=== PATIENT | male | born 1980 | race Caucasian/White ===

== ENCOUNTER 2021-03-27 11:42 | Outpatient (REF) | payer OTHER, SELFPAY ==
[2021-03-27 14:03] LABS: Appearance Urine CLOUDY; Color Urine ORANGE; Glucose Urine UA NEG (NEG); Leukocyte Esterase Urine NEG (NEG); Nitrite Urine NEG (NEG); PH 5.5 (5.0-8.0); Specific Gravity - Urine >= 1.030 (1.005-1.025); UACC Culture Trigger NO; Urine Blood 1+ (NEG); Urine Ketones NEG (NEG); Urine Protein NEG (NEG-TRACE)
[2021-03-27 14:32] LABS: Alanine Aminotransferase 17 U/L (0-40); Albumin Level 4.3 g/dL (3.5-5.0); Alkaline Phosphatase 95 U/L (39-117); Anion Gap 13 (12-20); Aspartate Amino Transferase 16 U/L (5-37); Blood Urea Nitrogen 17 mg/dL (9-16); Calcium 9.1 mg/dL (8.4-10.2); Carbon Dioxide 26 mmol/L (22-29); Chloride 104 mmol/L (96-108); Cholesterol 229 mg/dL; Estimated Glomerular Filt Rate > 60; Glucose Fasting 85 mg/dL (60-99); HDL Cholesterol 45 mg/dL; LDL Cholesterol Calculated 153 mg/dl; Potassium 4.2 mmol/L (3.3-5.1); Sodium 139 mmol/L (135-145); Total Protein 6.9 g/dL (6.5-8.0); Triglycerides 158 mg/dL
[2021-03-27 14:47] LABS: Amorphous Sediment Urine 4+ /LPF; RBC Urine 0 /HPF (0); WBC Urine 0 /HPF (0-4)
[2021-03-27 14:53] LABS: TSH reflex Free T4 1.08 uIU/mL (0.32-4.0)
== END 2021-03-27 11:43 | disposition home or self-care (01) ==
LOC: HO.HMGCLDS 11:42
PROVIDERS: PCP Nurse Practitioner Family; Visit Provider Nurse Practitioner Family
DX: Z00.00 Encounter for general adult medical examination without abnormal findings (principal)
CPT/HCPCS: 36415; 80053; 80061; 81001; 81003; 84443

== ENCOUNTER → 2022-04-06 13:27 | Outpatient (BNVA) | payer OTHER, SELFPAY | PROVIDERS: PCP Nurse Practitioner Family; Visit Provider Surgery | DX: K64.5 Perianal venous thrombosis (principal) | CPT/HCPCS: 99202 ==

== ENCOUNTER 2022-07-22 12:31 | Outpatient (REF) | payer OTHER, SELFPAY ==
[2022-07-22 13:53] LABS: Urine Cytology See Pathology rpt
[2022-07-22 13:59] LABS: MANUAL DIFF FLAG NO
[2022-07-22 14:01] LABS: Appearance Urine Clear; Color Urine Yellow; Glucose Urine UA Negative (Negative); Leukocyte Esterase Urine Negative (Negative); Nitrite Urine Negative (Negative); PH 5.5 (5.0-9.0); Urine Blood Negative (Negative); Urine Ketones Negative (Negative); Urine Protein Negative (Neg-Trace)
[2022-07-22 14:07] LABS: Basophils Absolute Auto 0.1 X10*3/uL (0.0-0.2); Basophils Percent Auto 0.8 % (0-2); Eosinophils Absolute Auto 0.3 X10*3/uL (0.0-0.4); Eosinophils Percent Auto 3.4 % (0-4); Hematocrit 46.6 % (42.0-52.0); Hemoglobin 15.9 g/dl (14.0-18.0); Imm Gran Abs Auto 0.04 X10*3/uL (0.00-0.03); Imm Gran Pct Auto 0.5 % (0.0-0.4); Lymphocytes Absolute Auto 2.5 X10*3/uL (1.2-4.9); Mean Corpuscular HGB Conc 34.1 g/dl (31.0-36.0); Mean Corpuscular Hemoglobin 30.1 pg (27.0-33.0); Mean Corpuscular Volume 88.3 fL (80.0-98.0); Mean Platelet Volume 8.8 fL (9.4-12.4); Monocytes Absolute Auto 0.7 X10*3/uL (0.1-1.2); Monocytes Percent Auto 8.9 % (2-11); Neutrophils Absolute Auto 3.8 x10*3/uL (2.0-8.3); Neutrophils Percent Auto 52.4 % (45-73); Platelet Count 303 X10*3/uL (160-400); Red Blood Count 5.28 X10*6/uL (4.60-5.80); Red Cell Distribution Width 12.2 % (11.0-16.0); White Blood Count 7.3 X10*3/uL (4.8-10.8)
[2022-07-22 14:35] LABS: Alanine Aminotransferase 20 U/L (0-40); Albumin Level 4.2 g/dL (3.5-5.0); Alkaline Phosphatase 96 U/L (39-117); Anion Gap 10 (12-20); Aspartate Amino Transferase 16 U/L (5-37); Bilirubin Total 1.3 mg/dL (0.0-1.0); Blood Urea Nitrogen 16 mg/dL (9-16); Calcium 9.1 mg/dL (8.4-10.2); Carbon Dioxide 25 mmol/L (22-29); Chloride 108 mmol/L (96-108); Cholesterol 241 mg/dL; Estimated Glomerular Filt Rate > 60; Glucose Fasting 88 mg/dL (60-99); HDL Cholesterol 40 mg/dL; LDL Cholesterol Calculated 166 mg/dl; Potassium 4.2 mmol/L (3.3-5.1); Sodium 139 mmol/L (135-145); Total Protein 6.7 g/dL (6.5-8.0); Triglycerides 179 mg/dL
[2022-07-22 14:41] LABS: TSH reflex Free T4 1.23 uIU/mL (0.32-4.0)
== END 2022-07-22 12:32 | disposition home or self-care (01) ==
LOC: HO.HMGCLDS 12:31
PROVIDERS: PCP Nurse Practitioner Family; Visit Provider Nurse Practitioner Family
DX: E78.5 Hyperlipidemia, unspecified (principal); R31.29 Other microscopic hematuria
CPT/HCPCS: 36415; 80053; 80061; 81003; 84443; 85025; 87086; 88112

== ENCOUNTER 2022-10-12 14:06 | Outpatient (REF) | payer OTHER, SELFPAY ==
[2022-10-12 17:02] LABS: Alanine Aminotransferase 42 U/L (0-40); Albumin Level 4.4 g/dL (3.5-5.0); Alkaline Phosphatase 102 U/L (39-117); Anion Gap 12 (12-20); Aspartate Amino Transferase 24 U/L (5-37); Bilirubin Total 1.2 mg/dL (0.0-1.0); Blood Urea Nitrogen 16 mg/dL (9-16); Calcium 9.2 mg/dL (8.4-10.2); Carbon Dioxide 27 mmol/L (22-29); Chloride 106 mmol/L (96-108); Cholesterol 218 mg/dL; Estimated Glomerular Filt Rate > 60; Glucose Fasting 82 mg/dL (60-99); HDL Cholesterol 40 mg/dL; LDL Cholesterol Calculated 135 mg/dl; Potassium 4.3 mmol/L (3.3-5.1); Sodium 141 mmol/L (135-145); Total Protein 6.9 g/dL (6.5-8.0); Triglycerides 216 mg/dL
== END 2022-10-12 14:07 | disposition home or self-care (01) ==
LOC: HO.HMGCLDS 14:06
PROVIDERS: PCP Nurse Practitioner Family; Visit Provider Nurse Practitioner Family
DX: E78.5 Hyperlipidemia, unspecified (principal)
CPT/HCPCS: 36415; 80053; 80061

== ENCOUNTER 2022-11-11 09:59 | Outpatient (REF) | payer OTHER, SELFPAY ==
--- NOTE | ~2022-11-11 | US_ITS ---
EXAMINATION: US ABDOMEN COMPLETE CLINICAL INFORMATION: Abnormal LFTs. COMPARISON: None available. TECHNIQUE: Real-time imaging of the abdominal viscera. FINDINGS: PANCREAS: Visualized body and the head of the pancreas is homogeneous in echotexture without enlargement or focal lesion. The tail is obscured by overlying gas. ABDOMINAL AORTA: The proximal, mid, and distal segments are normal in caliber. INFERIOR VENA CAVA: Visualized portions are normal. LIVER: The liver is normal in size. The liver contour is normal. There is increased liver echogenicity. No focal hepatic lesion. There is no intrahepatic biliary duct dilatation seen. GALLBLADDER: Normal. The gallbladder is physiologically distended without evidence of stones, sludge, polyps, wall thickening or pericholecystic fluid. COMMON BILE DUCT: Normal in caliber measuring 0.3 cm in diameter. RIGHT KIDNEY: Normal. No hydronephrosis. No renal calculi or focal parenchymal lesions. The kidney measures 11.4 cm in maximum dimension. LEFT KIDNEY: Normal. No hydronephrosis. No renal calculi or focal parenchymal lesions. The kidney measures 12.1 cm in maximum dimension. SPLEEN: Normal. The spleen measures 11.7 cm in maximum dimension. FREE FLUID: None. US/US abdomen complete IMPRESSION: 1. Mild hepatic steatosis without focal lesion. 2. The rest of the abdominal ultrasound is unremarkable.
== END 2022-11-11 10:00 | disposition home or self-care (01) ==
LOC: HO.US 09:59
PROVIDERS: PCP Nurse Practitioner Family; Visit Provider Nurse Practitioner Family
DX: R74.8 Abnormal levels of other serum enzymes (principal)
CPT/HCPCS: 76700

== ENCOUNTER 2023-07-28 10:02 | Outpatient (REF) | payer OTHER, SELFPAY ==
[2023-07-29 08:13] LABS: HBS Num1 0.63 mIU/mL (0-7.99); HBc Num1 0.11 S/CO (0.00-0.79); HBsAGNum1 0.33 S/CO (0.00-0.99); Hepatitis A Antibody IgM 0.27 Index (0-0.79); Hepatitis B Core Antibody Nonreactive (Nonreactive); Hepatitis B Surface Antigen Negative (Negative); ~HepC Num1 0.05 S/CO (0.00-0.79); ~Hepatitis A Antibody IgM Nonreactive (Nonreactive); ~Hepatitis B Surface Antibody NONREACTIVE (Nonreactive); ~Hepatitis C Antibody Nonreactive (Nonreactive)
== END 2023-07-28 10:03 | disposition home or self-care (01) ==
LOC: HO.HMGCLDS 10:02
PROVIDERS: PCP Nurse Practitioner Family; Visit Provider Nurse Practitioner Family
DX: R74.8 Abnormal levels of other serum enzymes (principal)
CPT/HCPCS: 36415; 86704; 86706; 86709; 86803; 87340

== ENCOUNTER 2023-09-30 13:42 | Outpatient (AMB) | payer OTHER, SELFPAY ==
[2023-09-30 13:51] VITALS: BP 110/72; PULSE 82; O2SAT 98; BMI 28.7
--- NOTE | 2023-09-30 13:51 | A.OFFPC_ITS ---
Vital Signs 09/30/23 13:51 Height 5 ft 8 in Weight 189 lb BMI 28.7 BP 110/72 Blood Pressure Location Lt brachial Position Sitting Pulse 82 Pulse Source Pulse Oximeter Pulse Oximetry (%) 98 Intake Visit Reasons: Annual PE Intake Note: pt is here for annual exam Director Medical Affairs Required: No Accompanied by: Self / Same As Patient Allergies aspirin Allergy (Unknown, Verified 09/30/23 14:35) Unknown Medication List - Last Reconciled 09/30/23 by CLEO Farias buspirone 5 mg PO BID cyclobenzaprine 10 mg PO BEDTIME PRN 30 days nabumetone 500 mg PO BID 30 days rosuvastatin (Crestor) 10 mg PO DAILY sertraline 50 mg PO DAILY Tobacco use date assessed: 09/30/23 Dental Screening Dental Screen Date: 09/30/23 Did you have a dental visit in the last 12 months?: No Did you have a dental problem in the last 6 months where you did not have access to dental care?: No Was dental information given to patient?: Patient declined HPI Annual PE HPI Details Pt is here for a PE. Will order labs. Due for colon screen, will refer to GI. Pt reports discomfort to his mid posterior back with inhalation. He does have a significant smoking hx (up to 2 packs per day). Will order chest CT and d-dimer. [facility] Medical History Chronic left ear pain Thrombosed external hemorrhoid Depression Surgical History History of back surgery Social History Housing: House Patient Tobacco Use Status: Current everyday Tobacco user Cigarettes Per Day: 15 e-Cigarette/Vaping Use: Never Used Second Hand Smoke Exposure: Yes service: No Current occupational status: employed Current occupation: [employer] Current occupational exposures/hazards: No Cognitive needs: No Hearing needs: No Vision needs: No Questionnaire PHQ-9 Over the last 2 weeks, how often have you been bothered by any of the following problems? 1. Little interest or pleasure in doing things: nearly every day 2. Feeling down, depressed, or hopeless: not at all 3. Trouble falling or staying asleep, or sleeping too much: nearly every day 4. Feeling tired or having little energy: nearly every day 5. Poor appetite or overeating: more than half the days 6. Feeling bad about yourself - or that you are a failure or have let yourself or your family down: more than half the days 7. Trouble concentrating on things, such as reading the newspaper or watching television: more than half the days 8. Moving or speaking so slowly that other people could have noticed. Or the opposite - being so fidgety or restless that you have been moving around a lot more than usual: several days 9. Thoughts that you would be better off or of hurting yourself in some way: several days Total score: 17 Depression Screening Interpretation: Positive (will have reyes contact the pt) Depression Screening Follow-up: Existing condition and Declines treatment Depression Screening Done: Yes 73785 - PHQ-9 Billing: Yes Source: Developed by Drs. Boaz Barker, Kristal Yap, Noe Rosales and colleagues, with an educational giovani from [employer]. Thrive Questionnaire Date Thrive assessed: 07/16/22 AUDIT C Alcohol Use Questionnaire (AUDIT-C) 1. How often do you have a drink containing alcohol?: Monthly or less 2. How many drinks containing alcohol do you have on a typical day when you are drinking?: 3 or 4 3. How often do you have six or more drinks on one occasion?: Never Total Score: 2 Score Reviewed/Action Taken: Yes JOSELYN-7 AMB Questionnaire JOSELYN-7 Date JOSELYN - 7 assessed: 09/30/23 Feeling nervous, anxious, or on edge: 3 = Nearly every day Not being able to stop or control worryin = More than half the days Worrying too much about different things: 2 = More than half the days Trouble relaxin = More than half the days Being so restless that it is hard to sit still: 2 = More than half the days Becoming easily annoyed or irritable: 2 = More than half the days Feeling afraid as if something awful might happen: 2 = More than half the days Total JOSELYN-7 score (0-4 normal; 5-9 mild; 10-14 moderate; 15-21 severe): 15 Source: Developed by Drs. Boaz Barker, Kristal Yap, Noe Rosales and colleagues, with an educational giovani from [employer]. JOSELYN-7 Assessment Billing JOSELYN-7 Assessment Tool: JOSELYN-7 Assessment 41990 (denies any si or hi, declines treatment (therapist)/ consult) Review of Systems Const Denies chills and Denies fever(s) Eyes Denies blurry vision ENT Denies vertigo, Denies dizziness and Denies sore throat Card Denies chest pain at rest, Denies chest pain with activity, Denies diaphoresis, Denies dyspnea and Denies dyspnea on exertion Resp Denies cough, Denies dyspnea, Denies dyspnea on exertion and Denies wheezing GI Denies abdominal pain, Denies melena, Denies hematochezia, Denies constipation, Denies diarrhea and Denies loose stools Denies hematuria Musc Denies numbness and Denies tingling Skin/Breast Denies lesions Neuro Denies vertigo, Denies dizziness, Denies numbness and Denies tingling Psych Denies anxiety, Denies depression, Denies homicidal ideation, Denies suicidal ideation and Denies other (substance abuse) Aller/Immun Denies wheezing Physical exam (Primary Care) Vital Signs: Last Vital Signs Pulse 82 09/30/23 13:51 BP 110/72 09/30/23 13:51 Pulse Ox 98 09/30/23 13:51 BMI result Body Mass Index 28.7 Tobacco/Smoking Status: Tobacco use Status Tobacco use date assessed 09/30/23 09/30/23 13:59 Patient Tobacco Use Status Current everyday Tobacco 09/30/23 13:59 e-Cigarette/Vaping Use Never Used 09/30/23 13:59 Depression Screening Interpretation: Positive (will have reyes contact the pt) Depression Screening Follow-up: Existing condition and Declines treatment Thrive Assessment: Date of Thrive Assessment Date Thrive assessed 07/16/22 09/30/23 13:59 Const General: cooperative Nutritional Appearance: well nourished Orientation/consciousness: patient oriented x3 HENMT Head: Yes normal to inspection, Yes normocephalic and Yes atraumatic Ears: TM's normal bilaterally Eyes General: appearance normal, both eyes and all related structures Alignment and Position: alignment normal and position normal Neck Neck: Yes normal visual inspection and Yes no lymphadenopathy Thyroid: Thyroid normal Resp Effort & Inspection: normal respiratory effort Auscultation: clear to auscultation bilaterally Cardio Rate: regular rate Rhythm: regular rhythm Heart sounds: S1 normal heart sound present, S2 normal heart sound present and no murmurs GI Palpation (GI): Soft to palpation and nontender Auscultation: normal bowel sounds Male General Exam: Yes normal external exam Penis: normal penis Scrotum: scrotum normal, testes descended bilaterally and no inguinal hernias Testes: no testicular mass Skin Rashes: no rashes Neuro General: patient oriented x3, moves all extremities, no focal motor deficits and deep tendon reflexes 2+ bilaterally Romberg Test: Negative Psych Appearance: grossly normal Mental Status: mental status grossly normal Speech and movement: Normal speech and movement present Affect: normal affect Attitude: cooperative Thought process: Normal thought process present Thought content: Normal thought content present Insight: Good insight present (Psych) Judgement: Good judgement present (Psych) Assessment and Plan Assessment & Plan (1) Physical exam: Code(s): Z00.00 - Encounter for general adult medical examination without abnormal findings Plan: Labs ordered (2) Smoker: Code(s): F17.200 - Nicotine dependence, unspecified, uncomplicated Plan: Chest CT and d-dimer ordered (3) Inflammatory pain: Code(s): R52 - Pain, unspecified Plan: Chest CT and d-dimer ordered (4) Screening for colon cancer: Code(s): Z12.11 - Encounter for screening for malignant neoplasm of colon Plan: Referred to GI Plan The patient agreed to the use of a clinical medical transcriptionist for this encounter. Scribed for CLEO Rojas by Ely Patterson clinical medical transcriptionist, on 09/30/2023 at 14:10 EST. Orders: Orders Complete Blood Count Auto Diff Today Z00.00 - Encounter for general adult medical examination without abnormal findings TSH reflex Free T4 Today Z00.00 - Encounter for general adult medical examination without abnormal findings CT chest wo IV con Today F17.200 - Nicotine dependence, unspecified, uncomplicated, R52 - Pain, unspecified Comprehensive [place]. Panel Fast Today Z00.00 - Encounter for general adult medical examination without abnormal findings UA CC w/rflx Micro + Cult Today Z00.00 - Encounter for general adult medical examination without abnormal findings Lipid Panel Today Z00.00 - Encounter for general adult medical examination without abnormal findings D Dimer High Sensitivity Today F17.200 - Nicotine dependence, unspecified, uncomplicated, R52 - Pain, unspecified Referrals Gastroenterology Referral Z12.11 - Encounter for screening for malignant neoplasm of colon Medications: Refilled nabumetone 500 mg PO BID 60 tabs 0RF 30 days nabumetone 500 mg PO BID 60 tabs 2RF 30 days Coding Level of Care Code Est Pt Prev Care 40-64y(35328) Diagnoses Physical exam Z00.00 Smoker F17.200 Inflammatory pain R52 Screening for colon cancer Z12.11 Additional Codes JOSELYN-7 Assessment Billing - JOSELYN-7 Assessment Tool: JOSELYN-7 Assessment [id number] ([id number])
== END 2023-09-30 14:24 | disposition home or self-care (01) ==
PROVIDERS: PCP Nurse Practitioner Family; Visit Provider Nurse Practitioner Family
DX: Z00.00 Encounter for general adult medical examination without abnormal findings (principal); F17.210 Nicotine dependence, cigarettes, uncomplicated; R52 Pain, unspecified; Z12.11 Encounter for screening for malignant neoplasm of colon
CPT/HCPCS: 99396

== ENCOUNTER 2023-10-04 12:55 | Outpatient (REF) | payer OTHER, SELFPAY ==
[2023-10-04 16:14] LABS: MANUAL DIFF FLAG NO
[2023-10-04 16:22] LABS: Basophils Absolute Auto 0.1 X10*3/uL (0.0-0.2); Basophils Percent Auto 0.6 % (0-2); Eosinophils Absolute Auto 0.2 X10*3/uL (0.0-0.4); Eosinophils Percent Auto 2.6 % (0-4); Hematocrit 47.4 % (42.0-52.0); Hemoglobin 16.1 g/dl (14.0-18.0); Imm Gran Abs Auto 0.03 X10*3/uL (0.00-0.03); Imm Gran Pct Auto 0.4 % (0.0-0.4); Lymphocytes Absolute Auto 2.7 X10*3/uL (1.2-4.9); Lymphocytes Percent Auto 31.9 % (20-40); Mean Corpuscular Hemoglobin 30.2 pg (27.0-33.0); Mean Corpuscular Volume 88.9 fL (80.0-98.0); Mean Platelet Volume 8.8 fL (9.4-12.4); Monocytes Absolute Auto 0.7 X10*3/uL (0.1-1.2); Monocytes Percent Auto 8.3 % (2-11); Neutrophils Absolute Auto 4.7 x10*3/uL (2.0-8.3); Neutrophils Percent Auto 56.2 % (45-73); Platelet Count 334 X10*3/uL (160-400); Red Blood Count 5.33 X10*6/uL (4.60-5.80); Red Cell Distribution Width 11.9 % (11.0-16.0); White Blood Count 8.4 X10*3/uL (4.8-10.8)
[2023-10-04 16:45] LABS: Alanine Aminotransferase 20 U/L (0-40); Albumin Level 4.3 g/dL (3.5-5.0); Alkaline Phosphatase 103 U/L (39-117); Anion Gap 11 (12-20); Aspartate Amino Transferase 17 U/L (5-37); Bilirubin Total 1.1 mg/dL (0.0-1.0); Blood Urea Nitrogen 15 mg/dL (9-16); Calcium 9.5 mg/dL (8.4-10.2); Carbon Dioxide 26 mmol/L (22-29); Chloride 106 mmol/L (96-108); Cholesterol 229 mg/dL (<200); Estimated Glomerular Filt Rate > 60; Glucose Fasting 84 mg/dL (60-99); HDL Cholesterol 40 mg/dL (>40); LDL Cholesterol Calculated 152 mg/dL (<100); Potassium 4.1 mmol/L (3.3-5.1); Sodium 139 mmol/L (135-145); Total Protein 7.5 g/dL (6.5-8.0); Triglycerides 189 mg/dL (<150)
[2023-10-04 16:57] LABS: D Dimer High Sensitivity < 150 NG/ML
[2023-10-04 16:59] LABS: Appearance Urine Clear; Glucose Urine UA Negative (Negative); Leukocyte Esterase Urine Negative (Negative); Nitrite Urine Negative (Negative); PH 5.5 (5.0-9.0); Specific Gravity - Urine 1.025 (1.005-1.025); Urine Blood Negative (Negative); Urine Ketones Negative (Negative); Urine Protein Negative (Neg-Trace)
[2023-10-04 17:00] LABS: TSH reflex Free T4 1.38 uIU/mL (0.32-4.0)
[2023-10-04 17:02] LABS: Color Urine Yellow
== END 2023-10-04 12:56 | disposition home or self-care (01) ==
LOC: HO.HMGCLDS 12:55
PROVIDERS: PCP Nurse Practitioner Family; Visit Provider Nurse Practitioner Family
DX: Z00.00 Encounter for general adult medical examination without abnormal findings (principal); F17.200 Nicotine dependence, unspecified, uncomplicated; R52 Pain, unspecified
CPT/HCPCS: 36415; 80053; 80061; 81003; 84443; 85025; 85379

== ENCOUNTER 2023-11-15 15:07 | Outpatient (REF) | payer OTHER, SELFPAY ==
--- NOTE | ~2023-11-15 | CT_ITS ---
EXAMINATION: CT CHEST WITHOUT CONTRAST CLINICAL INFORMATION: Chest pain. Nicotine dependence. COMPARISON: None available. TECHNIQUE: Multidetector volumetric CT imaging of the chest was done. Axial MIP volume rendering provided. Sagittal and coronal reformatted images were obtained. This CT examination was performed using dose optimization techniques as appropriate, variously including the following: *Automated exposure control *Adjustment of mA and/or kV according to patient size (this includes techniques or standardized protocols for targeted exams where dose is matched to indication/reason for exam; i.e. extremities or head) *Use of iterative reconstruction technique DLP: 138 mGy-cm FINDINGS: ART COORDINATOR: Unremarkable. LUNGS: A potential 10 mm subsolid right lower lobe pulmonary nodule (series 5 image [id number]) with a 3 mm solid component. I suspect this is in fact a 3 mm juxtapleural nodule with adjacent dependent atelectasis. Recommend CT in 3-6 months to confirm persistence. If unchanged and solid component below 6 mm, recommend CT annually for 5 years. There are multiple small (less than 6 mm), solid, and multiple juxtapleural nodules bilaterally. Attention on 12 month follow-up. No endobronchial lesion. MEDIASTINUM: No mass or adenopathy. CORONARY ARTERY CALCIFICATION: Minimal coronary artery calcification in the left main (series 5 image 298). PLEURA: Trace anteriorly loculated pericardial effusion. No pleural effusion. AXILLA: No lymphadenopathy. UPPER ABDOMEN: Incomplete visualization of a punctate pancreatic calcification (series 3 image 61/61). OSSEOUS STRUCTURES: Minor degenerative spine disease. CT/CT chest wo IV con IMPRESSION: 1. A potential 10 mm subsolid right lower lobe pulmonary nodule with 3 mm solid component. Follow in 3-6 months to confirm persistence. 2. Multiple small solid and juxtapleural pulmonary nodules. Follow in 12 months. Fleischner guidelines were followed.
== END 2023-11-15 15:08 | disposition home or self-care (01) ==
LOC: HO.CT 15:07
PROVIDERS: PCP Nurse Practitioner Family; Visit Provider Nurse Practitioner Family
DX: R52 Pain, unspecified (principal); F17.200 Nicotine dependence, unspecified, uncomplicated
CPT/HCPCS: 71250

== ENCOUNTER 2023-12-27 07:53 | Outpatient (AMB) | payer OTHER, SELFPAY ==
[2023-12-27 07:55] VITALS: BP 101/69; PULSE 59; BMI 28.1
--- NOTE | 2023-12-27 07:55 | MHC.OFFVIS ---
Vital Signs 12/27/23 07:55 Height 5 ft 8 in Weight 185 lb BMI 28.1 BP 101/69 Blood Pressure Location Rt brachial Position Sitting Pulse 59 Intake Visit Reasons: Pumonary Nodule Intake Note: Patient referred by pcp Rony GUTIERREZ for Rt lower lobe pulmonary nodule. Patient c/o: fatigue, SOB when going upstairs. Has cut down in smoking from 2 packs a day to 5 cigarettes per day. Reports no personal or family hx of lung CA. Chest CT: 11-15-23. Instructional Support Specialist Required: No Accompanied by: Spouse Allergies aspirin Allergy (Unknown, Verified 12/27/23 08:00) Unknown HPI Comments Details: Patient presents with his and daughter. He had incidental finding of bilateral small lung lesions. This was picked up incidentally on a CT scan for unrelated back issues. Patient has a very significant smoking history for almost 1-1/2-2 packs per day for approximately 29 years. He is attempting to cut down. Patient has no other respiratory symptoms. He denies any cough, chest pain, wheeze, or shortness of breath. Patien's energy, appetite, and appetite are all good. Chart was reviewed and patient evaluated [facility] Medical History Chronic left ear pain Thrombosed external hemorrhoid Depression Surgical History History of back surgery Social History Housing: House Patient Tobacco Use Status: Current everyday Tobacco user Cigarettes Per Day: 15 e-Cigarette/Vaping Use: Never Used Second Hand Smoke Exposure: Yes service: No Current occupational status: employed Current occupation: [employer] Current occupational exposures/hazards: No Cognitive needs: No Hearing needs: No Vision needs: No Physical Exam Vital Signs: Last Vital Signs Pulse 59 12/27/23 07:55 BP 101/69 12/27/23 07:55 BMI result Body Mass Index 28.1 Chest Other: Chest breath sounds bilaterally. No evidence of any cervical periclavicular axillary groin adenopathy. GI Other: Abdomen is soft, benign Extrem Other: Extremities all 4 grossly intact Assessment & Plan Assessment & Plan (1) Incidental lung nodule, greater than or equal to 8mm: Code(s): R91.1 - Solitary pulmonary nodule Category: Surgical Plan: Current radiologic recommendation is for follow-up CT scan in the few months time. I discussed with the patient and I concur with this. Arrangements were made for this and the patient will see me after the CT scan. The meantime, patient has been strongly encouraged to discontinue smoking completely. All questions answered. Patient will see me as noted above after the follow-up CT scan or p.r.n. (2) Multiple lung nodules on CT: Code(s): R91.8 - Other nonspecific abnormal finding of lung field Category: Surgical Plan: See above Orders: Orders CT chest wo/w IV con 6 Months R91.1 - Solitary pulmonary nodule, R91.8 - Other nonspecific abnormal finding of lung field Coding Level of Care Code New Pt Level 4 (89425) Diagnoses Incidental lung nodule, greater than or equal to 8mm R91.[address] Multiple lung nodules on CT R91.8
== END 2023-12-27 08:16 | disposition home or self-care (01) ==
PROVIDERS: PCP Nurse Practitioner Family; Visit Provider Surgery
DX: R91.1 Solitary pulmonary nodule (principal); R91.8 Other nonspecific abnormal finding of lung field
CPT/HCPCS: 99203

== ENCOUNTER → 2023-12-27 07:53 | Outpatient (BNVA) | payer OTHER, SELFPAY | PROVIDERS: PCP Nurse Practitioner Family; Visit Provider Surgery | DX: R91.1 Solitary pulmonary nodule (principal); R91.8 Other nonspecific abnormal finding of lung field | CPT/HCPCS: 99202 ==

== ENCOUNTER 2024-01-03 11:42 | Outpatient (REF) | payer OTHER, SELFPAY ==
[2024-01-03 14:22] LABS: Alanine Aminotransferase 34 U/L (0-40); Albumin Level 4.2 g/dL (3.5-5.0); Alkaline Phosphatase 113 U/L (39-117); Anion Gap 11 (12-20); Aspartate Amino Transferase 23 U/L (5-37); Bilirubin Total 0.7 mg/dL (0.0-1.0); Blood Urea Nitrogen 14 mg/dL (9-16); Calcium 9.4 mg/dL (8.4-10.2); Carbon Dioxide 26 mmol/L (22-29); Chloride 107 mmol/L (96-108); Cholesterol 161 mg/dL (<200); Estimated Glomerular Filt Rate > 60; Glucose Fasting 88 mg/dL (60-99); HDL Cholesterol 40 mg/dL (>40); LDL Cholesterol Calculated 96 mg/dL (<100); Potassium 4.3 mmol/L (3.3-5.1); Sodium 140 mmol/L (135-145); Total Protein 7.1 g/dL (6.5-8.0); Triglycerides 125 mg/dL (<150)
== END 2024-01-03 11:43 | disposition home or self-care (01) ==
LOC: HO.HMGCLDS 11:42
PROVIDERS: PCP Nurse Practitioner Family; Visit Provider Nurse Practitioner Family
DX: E78.5 Hyperlipidemia, unspecified (principal)
CPT/HCPCS: 36415; 80053; 80061

== ENCOUNTER 2024-04-03 08:24 | Outpatient (AMB) | payer OTHER, SELFPAY ==
--- NOTE | 2024-04-03 08:32 | MHC.PC.OV ---
Vital Signs 04/03/24 08:34 Height 5 ft 8 in Weight 187 lb 4 oz BMI 28.5 BP 110/68 Blood Pressure Location Lt brachial Position Sitting Pulse 66 Pulse Source Pulse Oximeter Pulse Oximetry (%) 98 Oxygen Delivery Method Room Air Intake Visit Reasons: 6 month follow up Intake Note: Pt is here today for 6 month follow up. Allergies aspirin Allergy (Unknown, Verified 04/03/24 09:00) Unknown Medication List - Last Reconciled 04/03/24 by CLEO Farias atorvastatin 20 mg PO BEDTIME buspirone 5 mg PO BID cyclobenzaprine 10 mg PO BEDTIME PRN 30 days nabumetone 500 mg PO BID 30 days sertraline 50 mg PO DAILY Tobacco use date assessed: 04/03/24 Dental Screening Dental Screen Date: 04/03/24 Did you have a dental visit in the last 12 months?: Yes Did you have a dental problem in the last 6 months where you did not have access to dental care?: No Was dental information given to patient?: Patient has dentist HPI 6 month follow up HPI Details Dyslipidemia: On atorvastatin 20mg. Cholesterol is improving with use of statin. Denies chest pain, shortness of breath, and dizziness. Pt has a follow-up chest CT scheduled due to hx of smoking. Refuses all vaccines currently. [facility] Medical History Chronic left ear pain Thrombosed external hemorrhoid Depression Surgical History History of back surgery Social History Housing: House Patient Tobacco Use Status: Current everyday Tobacco user Cigarettes Per Day: 15 e-Cigarette/Vaping Use: Never Used Second Hand Smoke Exposure: Yes service: No Current occupational status: employed Current occupation: [employer] Current occupational exposures/hazards: No Cognitive needs: No Hearing needs: No Vision needs: No Questionnaire PHQ-9 Over the last 2 weeks, how often have you been bothered by any of the following problems? 1. Little interest or pleasure in doing things: not at all 2. Feeling down, depressed, or hopeless: nearly every day 3. Trouble falling or staying asleep, or sleeping too much: nearly every day 4. Feeling tired or having little energy: nearly every day 5. Poor appetite or overeating: nearly every day 6. Feeling bad about yourself - or that you are a failure or have let yourself or your family down: nearly every day 7. Trouble concentrating on things, such as reading the newspaper or watching television: nearly every day 8. Moving or speaking so slowly that other people could have noticed. Or the opposite - being so fidgety or restless that you have been moving around a lot more than usual: more than half the days 9. Thoughts that you would be better off or of hurting yourself in some way: not at all Total score: 20 Depression Screening Interpretation: Positive Depression Screening Follow-up: Existing condition and Declines treatment Depression Screening Done: Yes 98449 - PHQ-9 Billing: Yes Source: Developed by Drs. Boaz Barker, Kristal Yap, Noe Rosales and colleagues, with an educational giovani from [employer]. Thrive Questionnaire Date Thrive assessed: 04/03/24 I am a: Patient What is your living situation today?: I have a steady place to live Within the past 12 months, did the food you bought not last and you didn't have the money to get more?: I choose not to answer this question Within the past 12 months, did you worry whether your food would run out before you got money to buy more?: I choose not to answer this question Do you have trouble paying for medicines?: No Do you have trouble getting transportation to medical appointments?: No Do you have trouble paying your heating and electricity bill?: I choose not to answer this question Do you have trouble taking care of your child, family member or friend?: No Do you have trouble with day-to-day activities such as bathing, preparing meals, shopping, managing finances, etc.?: No Are you currently unemployed and looking for a job?: No Are you interested in more education?: No Please select the resources that you would like help with: None Currently or been in a relationship where the following occur: I choose not to answer THRIVE Score: 0 AUDIT C Alcohol Use Questionnaire (AUDIT-C) 1. How often do you have a drink containing alcohol?: Never 3. How often do you have six or more drinks on one occasion?: Never Total Score: 0 Score Reviewed/Action Taken: Yes JOSELYN-7 AMB Questionnaire JOSELYN-7 Date JOSELYN - 7 assessed: 04/03/24 Feeling nervous, anxious, or on edge: 3 = Nearly every day Not being able to stop or control worryin = More than half the days Worrying too much about different things: 2 = More than half the days Trouble relaxin = Several days Being so restless that it is hard to sit still: 0 = Not at all Becoming easily annoyed or irritable: 1 = Several days Feeling afraid as if something awful might happen: 1 = Several days Total JOSELYN-7 score (0-4 normal; 5-9 mild; 10-14 moderate; 15-21 severe): 10 Source: Developed by Drs. Boaz Barker, Kristal Yap, Noe Rosales and colleagues, with an educational giovani from [employer]. JOSELYN-7 Assessment Billing JOSELYN-7 Assessment Tool: JOSELYN-7 Assessment 83793 (denies any si or hi, refuses any further treatment currently) Review of Systems Const Reports as per HPI Physical exam (Primary Care) Vital Signs: Last Vital Signs Pulse 66 04/03/24 08:34 BP 110/68 04/03/24 08:34 Pulse Ox 98 04/03/24 08:34 Oxygen Delivery Method Room Air 04/03/24 08:34 BMI result Body Mass Index 28.5 Tobacco/Smoking Status: Tobacco use Status Tobacco use date assessed 04/03/24 04/03/24 08:38 Patient Tobacco Use Status Current everyday Tobacco 04/03/24 08:33 e-Cigarette/Vaping Use Never Used 04/03/24 08:33 PHQ-9: PHQ-9 Score PHQ-9: Total score 20 04/03/24 08:38 Depression Screening Interpretation: Positive Depression Screening Follow-up: Existing condition and Declines treatment Thrive Assessment: Date of Thrive Assessment Date Thrive assessed 04/03/24 04/03/24 08:38 Currently or been in a relationship where the following occur: I choose not to answer Const General: cooperative Orientation/consciousness: patient oriented x3 Resp Effort & Inspection: normal respiratory effort Auscultation: clear to auscultation bilaterally and diminished lung sounds Cardio Rate: regular rate Rhythm: regular rhythm Heart sounds: S1 normal heart sound present and S2 normal heart sound present Neuro General: patient oriented x3 Psych Appearance: grossly normal Mental Status: mental status grossly normal Speech and movement: Normal speech and movement present Affect: normal affect Attitude: cooperative Thought process: Normal thought process present Thought content: Normal thought content present Insight: Good insight present (Psych) Judgement: Good judgement present (Psych) Assessment and Plan Assessment & Plan (1) Incidental lung nodule, greater than or equal to 8mm: Code(s): R91.1 - Solitary pulmonary nodule Plan: Follow up CT scheduled, sees thoracics (2) Dyslipidemia: Code(s): E78.5 - Hyperlipidemia, unspecified Plan: Continue statin, labs ordered Plan The patient agreed to the use of a medical reception specialist for this encounter. Scribed for CLEO Rojas by Ely Patterson medical reception specialist, on 04/03/2024 at 09:00 EST. Orders: Orders Lipid Panel Today E78.5 - Hyperlipidemia, unspecified Complete Blood Count Auto Diff Today E78.5 - Hyperlipidemia, unspecified Comprehensive [place]. Panel Fast Today E78.5 - Hyperlipidemia, unspecified TSH reflex Free T4 Today E78.5 - Hyperlipidemia, unspecified UA CC w/rflx Micro + Cult Today E78.5 - Hyperlipidemia, unspecified Coding Level of Care Code Est Pt Level 3 (80630) Diagnoses Incidental lung nodule, greater than or equal to 8mm R91.1 Dyslipidemia E78.5 Additional Codes JOSELYN-7 Assessment Billing - JOSELYN-7 Assessment Tool: JOSELYN-7 Assessment [id number] ([id number])
[2024-04-03 08:34] VITALS: BP 110/68; PULSE 66; O2SAT 98; BMI 28.5
== END 2024-04-03 09:11 | disposition home or self-care (01) ==
PROVIDERS: PCP Nurse Practitioner Family; Visit Provider Nurse Practitioner Family
DX: R91.1 Solitary pulmonary nodule (principal); E78.5 Hyperlipidemia, unspecified

== ENCOUNTER → 2024-04-03 08:24 | Outpatient (BNVA) | payer OTHER, SELFPAY | PROVIDERS: PCP Nurse Practitioner Family; Visit Provider Nurse Practitioner Family | DX: R91.1 Solitary pulmonary nodule (principal); E78.5 Hyperlipidemia, unspecified | CPT/HCPCS: 96127; 99212 ==

== ENCOUNTER 2024-04-03 09:12 | Outpatient (REF) | payer OTHER, SELFPAY ==
[2024-04-03 10:27] LABS: MANUAL DIFF FLAG NO
[2024-04-03 10:29] LABS: Basophils Absolute Auto 0.1 X10*3/uL (0.0-0.2); Eosinophils Absolute Auto 0.3 X10*3/uL (0.0-0.4); Eosinophils Percent Auto 3.7 % (0-4); Hematocrit 46.9 % (42.0-52.0); Hemoglobin 15.9 g/dl (14.0-18.0); Imm Gran Abs Auto 0.03 X10*3/uL (0.00-0.03); Imm Gran Pct Auto 0.3 % (0.0-0.4); Lymphocytes Absolute Auto 2.5 X10*3/uL (1.2-4.9); Lymphocytes Percent Auto 28.6 % (20-40); Mean Corpuscular HGB Conc 33.9 g/dl (31.0-36.0); Mean Corpuscular Hemoglobin 30.6 pg (27.0-33.0); Mean Corpuscular Volume 90.2 fL (80.0-98.0); Mean Platelet Volume 8.8 fL (9.4-12.4); Monocytes Absolute Auto 0.8 X10*3/uL (0.1-1.2); Monocytes Percent Auto 9.6 % (2-11); Neutrophils Absolute Auto 4.9 x10*3/uL (2.0-8.3); Neutrophils Percent Auto 56.8 % (45-73); Platelet Count 268 X10*3/uL (160-400); Red Cell Distribution Width 12.1 % (11.0-16.0); White Blood Count 8.6 X10*3/uL (4.8-10.8)
[2024-04-03 10:36] LABS: Appearance Urine Clear; Color Urine Yellow; Glucose Urine UA Negative (Negative); Leukocyte Esterase Urine Negative (Negative); Nitrite Urine Negative (Negative); PH 5.5 (5.0-9.0); Specific Gravity - Urine 1.025 (1.005-1.025); Urine Blood Negative (Negative); Urine Ketones Negative (Negative); Urine Protein Negative (Neg-Trace)
[2024-04-03 11:19] LABS: Alanine Aminotransferase 24 U/L (0-40); Albumin Level 4.3 g/dL (3.5-5.0); Alkaline Phosphatase 100 U/L (39-117); Anion Gap 11 (12-20); Aspartate Amino Transferase 18 U/L (5-37); Bilirubin Total 0.7 mg/dL (0.0-1.0); Blood Urea Nitrogen 16 mg/dL (9-16); Calcium 9.2 mg/dL (8.4-10.2); Carbon Dioxide 26 mmol/L (22-29); Chloride 108 mmol/L (96-108); Cholesterol 161 mg/dL (<200); Estimated Glomerular Filt Rate > 60; Glucose Fasting 101 mg/dL (60-99); HDL Cholesterol 41 mg/dL (>40); LDL Cholesterol Calculated 96 mg/dL (<100); Potassium 3.7 mmol/L (3.3-5.1); Sodium 141 mmol/L (135-145); Total Protein 7.2 g/dL (6.5-8.0); Triglycerides 121 mg/dL (<150)
[2024-04-03 11:34] LABS: TSH reflex Free T4 1.16 uIU/mL (0.32-4.0)
== END 2024-04-03 09:13 | disposition home or self-care (01) ==
LOC: HO.HMGCLDS 09:12
PROVIDERS: PCP Nurse Practitioner Family; Visit Provider Nurse Practitioner Family
DX: E78.5 Hyperlipidemia, unspecified (principal)
CPT/HCPCS: 36415; 80053; 80061; 81003; 84443; 85025

== ENCOUNTER 2024-04-18 13:58 | Outpatient (AMB) | payer OTHER, SELFPAY ==
[2024-04-18 14:03] VITALS: BP 116/74; PULSE 76; O2SAT 98; BMI 29.0
--- NOTE | 2024-04-18 14:03 | A.OFFVIS_ITS ---
Vital Signs 04/18/24 14:03 Height 5 ft 8 in Weight 190 lb 7.67 oz BMI 29.0 BP 116/74 Blood Pressure Location Rt brachial Position Sitting Pulse 76 Pulse Source Pulse Oximeter Pulse Oximetry (%) 98 Oxygen Delivery Method Room Air Intake Visit Reasons: Screening Colonoscoopy Intake Note: Levar presents in office today for a scheduled colo consult CC: Pt reports that this will be his first colo procedure. Pt denies any sx or additional concerns at this time that would otherwise warrant a colo. Pt was referred by PCP based on age related concerns. Pt denies any pertinent family hx that he is currently aware of. 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 male here today for pre colonoscopy screening.? Patient was sent to us by his PCP.? This is his first colonoscopy screening.? Patient denies any gastrointestinal symptoms in the past or at present.? Denies any personal or family history of gastrointestinal disease, colon polyps, or CRC.? Denies history of difficulty with sedation or anesthesia in the past.? Negative for history of sleep apnea.? Denies any history of cardiac, renal, pulmonary, or hepatic disease.?? No history of infectious? diseases like hepatitis A, B, C, HIV or tuberculosis.? Patient is not on any anticoagulation [facility] Medical History (Updated 04/18/24 @ 14:27 by Fe Borjas [facility]) Elevated liver enzymes Chronic left ear pain Thrombosed external hemorrhoid Depression Surgical History History of back surgery Social History Housing: House Patient Tobacco Use Status: Current everyday Tobacco user Cigarettes Per Day: 15 e-Cigarette/Vaping Use: Never Used Second Hand Smoke Exposure: Yes service: No Current occupational status: employed Current occupation: [email or web address] Current occupational exposures/hazards: No Cognitive needs: No Hearing needs: No Vision needs: No Review of Systems Const Denies weight gain and Denies weight loss ENT Reports no additional complaints, Denies dysphagia and Denies odynophagia Card Reports no additional complaints Resp Reports no additional complaints GI Denies abdominal pain, Denies belching, Denies melena, Denies bloating, Denies change in bowel habits, Denies dysphagia, Denies excessive flatus, Denies dyspepsia, Denies heartburn, Denies diarrhea, Denies loose stools, Denies nausea, Denies odynophagia and Denies vomiting Reports no additional complaints Musc Reports no additional complaints Neuro Reports no additional complaints Psych Reports no additional complaints Endo Reports no additional complaints Physical Exam Vital Signs: Last Vital Signs Pulse 76 04/18/24 14:03 BP 116/74 04/18/24 14:03 Pulse Ox 98 04/18/24 14:03 Oxygen Delivery Method Room Air 04/18/24 14:03 BMI result Body Mass Index 29.0 Const General: healthy appearing and no acute distress Nutritional Appearance: obese Orientation/consciousness: patient oriented x3 Resp Effort & Inspection: normal respiratory effort, able to speak in complete sentences, no tracheal deviation and symmetric chest movement Auscultation: clear to auscultation bilaterally Cardio Rate: regular rate GI Inspection: Yes normal to inspection, No distended and Yes obesity Palpation (GI): Soft to palpation, not firm, nontender and No hepatosplenomegaly present Auscultation: normal bowel sounds General: Yes no CVA tenderness Back/Spine/Pelvis Back: no CVA tenderness Skin General skin exam: elasticity normal, turgor normal and dry skin Neuro General: patient oriented x3 Psych Appearance: grossly normal Mental Status: mental status grossly normal Assessment & Plan Assessment & Plan (1) Screening for colon cancer: Code(s): Z12.11 - Encounter for screening for malignant neoplasm of colon Category: Medical (2) Fatty liver: Code(s): K76.0 - Fatty (change of) liver, not elsewhere classified Category: Medical Plan Patient denies any GI, cardiac or respiratory symptoms.? Denies any issues with anesthesia in the past.? Denies any history of sleep apnea.? No history infectious diseases in the past or present.? Not on any anticoagulation therapy.? No family or personal history of colon cancer or polyps.? Patient denies melena, hematochezia, unintentional weight loss or ribbon like stools.? On previous ultrasound of abdomen patient was found to have a increase echogenicity most likely nonalcoholic fatty liver. Patient reports that he does not drink alcohol. Patient had normal liver enzymes. Next visit we will send patient for repeat ultrasound. Will check liver fibrosis panel. Discussed at length the pre-procedure,? prep, diet & medications as well as what to expect prior, during and after the procedure.?? Stressed the importance of good bowel prep.? Recommended the use of Vaseline or Calmoseptine OTC & baby wipes with bowel movements to promote comfort.? ?Patient verbalizes understanding and agrees to plan of care.? He was given the opportunity to ask questions and all questions answered.? We will see him after the procedure.? Medications: New bisacodyl (Dulcolax (bisacodyl)) take 4 tabs at noon the day before your colonoscopy 20 mg (4 x 5 mg) PO ONCE 1 day 4 tabs 0RF Z12.11 - Encounter for screening for malignant neoplasm of colon polyethylene glycol 3350 (Miralax) As directed by gastroenterology department at [facility] 238 grams PO ONCE 238 grams 0RF Z12.11 - Encounter for screening for malignant neoplasm of colon Coding Level of Care Code New Pt Level 3 (27638) Diagnoses Screening for colon cancer Z12.11 Fatty liver K76.0 Time Spent (min) 40 Comment 30 minutes spent with patient and additional 10 minutes spent reviewing his records
== END 2024-04-18 14:41 | disposition home or self-care (01) ==
PROVIDERS: PCP Nurse Practitioner Family; Referring Provider Nurse Practitioner Family; Visit Provider Nurse Practitioner Family
DX: Z01.818 Encounter for other preprocedural examination (principal); Z12.11 Encounter for screening for malignant neoplasm of colon; K76.0 Fatty (change of) liver, not elsewhere classified
CPT/HCPCS: 99024

== ENCOUNTER → 2024-04-18 13:58 | Outpatient (BNVA) | payer OTHER, SELFPAY | PROVIDERS: PCP Nurse Practitioner Family; Referring Provider Nurse Practitioner Family; Visit Provider Nurse Practitioner Family | DX: Z01.818 Encounter for other preprocedural examination (principal); K64.5 Perianal venous thrombosis; K76.0 Fatty (change of) liver, not elsewhere classified | CPT/HCPCS: 99212 ==

== ENCOUNTER 2024-05-03 10:02 | Outpatient (REF) | payer OTHER, SELFPAY ==
--- NOTE | ~2024-05-03 | CT_ITS ---
EXAMINATION: CT CHEST WITH CONTRAST CLINICAL INFORMATION: Solitary pulmonary nodule COMPARISON: CT dated November 15, 2023. TECHNIQUE: Multidetector volumetric CT imaging of the chest was obtained after the administration of 65 mL of Omnipaque 350 intravenous contrast without reported immediate adverse reactions. Axial MIP volume rendering provided. Sagittal and coronal reformatted images were obtained. This CT examination was performed using dose optimization techniques as appropriate, variously including the following: *Automated exposure control *Adjustment of mA and/or kV according to patient size (this includes techniques or standardized protocols for targeted exams where dose is matched to indication/reason for exam; i.e. extremities or head) *Use of iterative reconstruction technique DLP: 242 mGy-cm FINDINGS: Submitted for interpretation on May 17, 2024. LUNGS: Multiple linear attenuation abnormalities involving the right middle lobe and lingula with minimal peribronchial patchy groundglass. There are few scattered subpleural and peripheral less than 3 mm pulmonary nodules, the most conspicuous in the right lower lung lobe. No bronchiectasis. No honeycombing. Secretions layering within the right mainstem bronchus. MEDIASTINUM: Nonspecific prominent left than 11 mm mediastinal lymph nodes. No pericardial effusion. No aneurysm or dissection, thoracic aorta. PLEURA: No pleural effusion. No pneumothorax. AXILLA: No lymphadenopathy. UPPER ABDOMEN: Decreased enhancement pattern of the liver parenchyma. OSSEOUS STRUCTURES: Multilevel thoracic spondylosis. No acute fracture or listhesis. No lytic or blastic lesions. CT/CT chest w IV con IMPRESSION: Concerning for acute to subacute inflammatory versus infectious process involving right middle lobe and lingula. Consider aspiration. Fleischner guidelines were followed. Electronically signed by: Rigo Anderson MD 05/17/2024 08:[address]
[2024-05-03] MEDS: iohexoL 350 MG/ML 100 ML INFUS..BTL 65 ML IV (10:40)
== END 2024-05-03 10:03 | disposition home or self-care (01) ==
LOC: HO.CT 10:02
PROVIDERS: PCP Nurse Practitioner Family; Visit Provider Surgery
DX: R91.1 Solitary pulmonary nodule (principal); R91.8 Other nonspecific abnormal finding of lung field
CPT/HCPCS: 71260; Q9967

== ENCOUNTER → 2024-05-03 10:04 | Outpatient (BNV) | payer OTHER, SELFPAY | PROVIDERS: PCP Nurse Practitioner Family; Visit Provider Radiology Diagnostic Radiology | DX: R91.1 Solitary pulmonary nodule (principal) | CPT/HCPCS: 71260 ==

== ENCOUNTER 2024-05-22 13:55 | Outpatient (AMB) | payer OTHER, SELFPAY ==
[2024-05-22 14:17] VITALS: BP 100/76; PULSE 72; BMI 29.2
--- NOTE | 2024-05-22 14:17 | MHC.OFFVIS ---
Vital Signs 05/22/24 14:17 Height 5 ft 8 in Weight 192 lb BMI 29.2 BP 100/76 Blood Pressure Location Rt brachial Position Sitting Pulse 72 Intake Visit Reasons: S/p CT chest - Intake Note: Patient here to discuss CT chest results. Patient concerned about lung nodule. [employer] Required: No Accompanied by: Self / Same As Patient Allergies aspirin Allergy (Unknown, Verified 05/22/24 14:18) Unknown HPI Comments Details: Patient presents for follow-up. He states he has a pulmonary infection a few months ago but it has improved. He denies any hemoptysis, chest pain, wheezing, chronic cough. His weight, energy, appetite are stable. He continues to smoke. Follow-up CT scan demonstrates concern for acute to subacute inflammatory versus infectious process involving right middle lobe and lingula. [facility] Medical History (Updated 04/18/24 @ 14:27 by Fe Borjas [facility]) Elevated liver enzymes Chronic left ear pain Thrombosed external hemorrhoid Depression Surgical History History of back surgery Social History Housing: House Patient Tobacco Use Status: Current everyday Tobacco user Cigarettes Per Day: 15 e-Cigarette/Vaping Use: Never Used Second Hand Smoke Exposure: Yes service: No Current occupational status: employed Current occupation: [employer] Current occupational exposures/hazards: No Cognitive needs: No Hearing needs: No Vision needs: No Physical Exam Vital Signs: Last Vital Signs Pulse 72 05/22/24 14:17 BP 100/76 05/22/24 14:17 BMI result Body Mass Index 29.2 Chest Other: No cervical, periclavicular, or axillary adenopathy. Chest breath sounds bilaterally. Some wheezing right mid zone GI Other: Abdomen is soft, benign Assessment & Plan Assessment & Plan (1) Multiple lung nodules on CT: Code(s): R91.8 - Other nonspecific abnormal finding of lung field Category: Surgical (2) Incidental lung nodule, greater than or equal to 8mm: Code(s): R91.1 - Solitary pulmonary nodule Category: Surgical Plan Current plan is to arrange for pulmonary consultation and direct further therapy/interventions based on their input. I discussed with the patient possibility for IR CT-guided biopsy but we will wait for Pulmonary input. All questions answered. Patient will see me after pulmonary consult . Coding Level of Care Code Est Pt Level 4 (46075) Diagnoses Multiple lung nodules on CT R91.8 Incidental lung nodule, greater than or equal to 8mm R91.1
== END 2024-05-22 14:34 | disposition home or self-care (01) ==
PROVIDERS: PCP Nurse Practitioner Family; Visit Provider Surgery
DX: R91.8 Other nonspecific abnormal finding of lung field (principal); R91.1 Solitary pulmonary nodule
CPT/HCPCS: 99214

== ENCOUNTER → 2024-05-22 13:55 | Outpatient (BNVA) | payer OTHER, SELFPAY | PROVIDERS: PCP Nurse Practitioner Family; Visit Provider Surgery | DX: R91.8 Other nonspecific abnormal finding of lung field (principal); R91.1 Solitary pulmonary nodule | CPT/HCPCS: 99212 ==

== ENCOUNTER 2024-05-29 10:53 | Outpatient (AMB) | payer OTHER, SELFPAY ==
--- OUTSIDE RECORDS SUMMARY | 2024-05-29 10:55 | XMS_ITS | Continuity of Care Document ---
Author Organization [facility] ter Address [address] [place] [id number]- Care Team Providers Care Continuum Of Care Manager Name Role Phone Jack COOLEY, Rony Cage Primary Care Physician Encounter [facility] Date(s): 05/15/24 - 05/15/[address] [address]- Encounter Diagnosis Tooth ache(Final) - 05/15/24 Tooth decay(Final) - 05/15/24 Discharge Disposition: A-D/C Home Attending Physician: Pooja Castellon MD Admitting Physician: Pooja Castellon MD Referring Physician: Not on Staff, Referring MD Allergies, Adverse Reactions, Alerts Substance Reaction Severity Status ibuprofen Active Medications famotidine 20 mg oral tablet 20 mg, 1, tablet, By Mouth, Daily, # 14 tablet, Refills 0, Tot. Refills 0, Maintenance, 05/30/22 22:38:00 EST, Route to Pharmacy Electronically, [facility]/pharmacy #[id number], Partial fill upon patient request if the prescription is for a schedule II opioid drug... Start Date: 05/30/22 Stop Date: 06/13/22 Status: Ordered meloxicam 7.5 mg oral tablet 1 tablet = 7.5 mg, By Mouth, 2 times a day, 0 Refills, Maintenance, 07/02/14 8:22:12 Start Date: 07/02/14 Status: Ordered metaxalone 800 mg oral tablet 1 tablet = 800 mg, By Mouth, 3 times a day, # 30 tablet, 0 Refills, Maintenance, 07/02/14 8:23:34, Tablet Start Date: 07/02/14 Stop Date: 07/12/14 Status: Ordered oxyCODONE 5 mg oral tablet 5 mg, Tablet, By Mouth, Once, PRN for Pain , Severe, STAT, 05/15/24 3:02:00 EST Start Date: 05/15/24 Stop Date: 05/15/24 Status: Completed sertraline 50 mg oral tablet 1 tablet = 50 mg, By Mouth, Daily, # 30 tablet, 0 Refills, Maintenance, 07/02/14 8:21:51, Tablet Start Date: 07/02/14 Status: Ordered Vital Signs Most recent to oldest [Reference Range]: 1 2 3 Height 173 cm (05/15/24:02 AM) 173 cm (05/15/24:16 AM) Weight 82 kg (05/15/24 5:02 AM) 82 kg (05/15/24:16 AM) Oxygen Saturation [94-100 %] 99 % (05/15/24 5:02 AM) Pulse Rate [55-90 bpm] 69 bpm (05/15/24 5:02 AM) 69 bpm (05/15/24:16 AM) Body Mass Index [18.5-24.99 kg/m2] 27.4 kg/m2 *H* (05/15/24:02 AM) 27.4 kg/m2 *H* (05/15/24:16 AM) Blood Pressure [90-138/55-84 mm Hg] 93/52mm Hg (05/15/24 5:02 AM) 144/82mm Hg *H* (05/15/24 1:16 AM) Respiratory Rate [16-30 br/min] 18 br/min (05/15/24 5:02 AM) 16 br/min (05/15/24 3:13 AM) 17 br/min (05/15/24 1:16 AM) Mode of Delivery (Oxygen) Room air (05/15/24 5:02 AM) Room air (05/15/24 1:16 AM) Blood pressure sites Arm, right (05/15/24 5:02 AM) Arm, left (05/15/24:16 AM) Temperature Route Oral (05/15/24 1:16 AM) Dry Weight 82 kg (05/15/24 5:02 AM) 82 kg (05/15/24 1:16 AM) Weight Obtained Via Standing scale (05/15/24 1:16 AM) Dry Weight Obtained Via Standing scale (05/15/24 1:16 AM) Patient Care team information Care Team Personnel Name: Jack COOLEY , Rony Cage Position: Reference Physician Member Role: PCP Address: Address: [address] [place] [address]- Care Team Related Persons Name: AGUSTÍN PERDOMO Address: home [address] [place] [address] Name: CARLO ARAUZ Address: home [address] [place] [address]
--- NOTE | 2024-05-29 11:08 | MHC.OFFWIV ---
Intake Vital Signs 05/29/24 11:09 Height 5 ft 8 in Weight 192 lb 6 oz BMI 29.2 BP 122/80 Blood Pressure Location Lt brachial Position Sitting Pulse 68 Pulse Source Pulse Oximeter Temp 98.1 F Temp Source Oral Pulse Oximetry (%) 97 Oxygen Delivery Method Room Air Intake Visit Reasons: EP LT ear ?infection Intake Note: Patient here for left ear pain and itching that started Wednesday Patient Tobacco Use Status: Current everyday Tobacco user Allergies aspirin Allergy (Unknown, Verified 05/29/24 11:10) Unknown Do you need a note to return to daycare/school/sports/work: No HPI HPI Comments History of Present Illness Details The patient is a 44-year-old male presenting with symptoms of itching and auditory obstruction in the left ear. The symptoms have been present for an extended duration, with significant exacerbation noted 3 days ago, continuing through the weekend. The patient reports a sensation of the ear being clogged and describes a progression in the severity of the itching. There is an associated buildup in the ear canal, which the patient attempted to clean over the recent days. The patient denies any fever but reports altered hearing sensation, describing it as isabella to being in a tunnel, with diminished auditory perception in the left ear. No issues with the right ear have been reported. The patient is unsure whether there has been any discharge, as it has been cleaned frequently. [facility] Medical History (Updated 05/29/24 @ 14:41 by Yaritza Hurd PA-C) Elevated liver enzymes Chronic left ear pain Thrombosed external hemorrhoid Depression Surgical History History of back surgery Social History Housing: House Patient Tobacco Use Status: Current everyday Tobacco user Cigarettes Per Day: 15 e-Cigarette/Vaping Use: Never Used Second Hand Smoke Exposure: Yes service: No Current occupational status: employed Current occupation: [employer] Current occupational exposures/hazards: No Cognitive needs: No Hearing needs: No Vision needs: No Review of Systems Const All systems reviewed & are unremarkable except as noted in HPI and below Physical Exam Vital Signs: Last Vital Signs Temp 98.1 F 05/29/24 11:09 Pulse 68 05/29/24 11:09 BP 122/80 05/29/24 11:09 Pulse Ox 97 05/29/24 11:09 Oxygen Delivery Method Room Air 05/29/24 11:09 BMI result Body Mass Index 29.2 Const General: cooperative, healthy appearing, comfortable and no acute distress Orientation/consciousness: patient oriented x3 HEENT Head: Yes normal to inspection, Yes No palpable skull fracture present and Yes normocephalic Ears: hearing grossly normal bilaterally, external ears normal, TM's normal bilaterally, EAC's normal (right side only), mastoids normal (no TTP) bilaterally and Abnormal EAC present (left side) erythema, EAC tenderness and otic discharge purulent General nose exam: Normal external nose present Face and sinus: Yes normal facial exam Mouth: Normal oral and palatal mucosa present Teeth and gingiva: dentition normal Throat: Yes posterior oropharynx normal Eyes General: appearance normal, both eyes and all related structures Neck Neck: Yes normal visual inspection, Yes full ROM, Yes no lymphadenopathy, Yes no meningeal signs, Yes trachea midline and Yes supple Resp Effort & Inspection: normal respiratory effort and able to speak in complete sentences Skin General skin exam: no rashes or lesions noted Neuro General: patient oriented x3 and no meningeal signs Assessment & Plan Assessment & Plan (1) Otitis externa of left ear: Comment: I was not involved in the care of this patient. LUIS Moeller Code(s): H60.92 - Unspecified otitis externa, left ear Qualifiers: Chronicity: acute Otitis externa type: diffuse Qualified Code(s): H60.312 - Diffuse otitis externa, left ear Plan: For the diagnosis of Otitis Externa in the left ear, I will prescribe otic drops to be used four times a day while the patient is awake for the next seven days. The prescription contains a combination of a steroid, a cleansing agent, and an antibiotic to alleviate symptoms and resolve the infection. The patient is advised to administer the drops at evenly spaced intervals during waking hours, explicitly avoiding usage during sleep. The medication will be sent electronically to the patient?s pharmacy for prompt initiation of treatment. Patient was informed and verbally consented to the use of an ambient scribe for clinic note documentation during this visit. Medications: New vvbxtkfa-qrdcchhrh-YD 3.5-10,000-1 mg/mL-unit/mL-% 4 drps otic (ear) left QID 10 mL 0RF 7 days Coding Level of Care Code Est Pt Level 3 (90411) Diagnoses Acute diffuse otitis externa of left ear H60.312 Chronicity: acute Otitis externa type: diffuse
[2024-05-29 11:09] VITALS: BP 122/80; PULSE 68; TEMP 36.7; O2SAT 97; BMI 29.2
== END 2024-05-29 11:53 | disposition home or self-care (01) ==
PROVIDERS: PCP Nurse Practitioner Family; Visit Provider Physician Assistant
DX: H60.312 Diffuse otitis externa, left ear (principal)

== ENCOUNTER → 2024-05-29 10:53 | Outpatient (BNVA) | payer OTHER, SELFPAY | PROVIDERS: PCP Nurse Practitioner Family; Visit Provider Physician Assistant | DX: H60.312 Diffuse otitis externa, left ear (principal) | CPT/HCPCS: 99212 ==

== ENCOUNTER 2024-06-20 07:16 | Outpatient (AMB) | payer OTHER, SELFPAY ==
--- OUTSIDE RECORDS SUMMARY | 2024-06-20 07:18 | XMS_ITS | Data Portability ---
Author Organization [employer] Address [address] [place] [id number] Care Team Providers Care Washer Machine Name Role Phone [facility] Referring Provider Assessment No assessment recorded. Plan of Treatment Reminders Order Date Submit Date Provider Last Modified By Organization Details Last Modified Time Details Appointments None record ed. Lab None record ed. Referral None record ed. Procedures None record ed. Surgeries None record ed. Imaging None record ed. Medication Orders None record ed. Patient TargetsNo targets recorded. Patient InstructionsNo instructions recorded. Reason for Referral None Reported. Medical Equipment None Reported. Medications Name Sig Start Date Stop Date Status Note LastModified by Organization Details LastModified Time buspirone 5 mg tablet TAKE 1 TABLET (5 MG) BY MOUTH TWICE A DAY active Not Available Not Available No t Available neomycin-eun ymyxin-hydro maribel 3.5 mg/mL-10,000 unit/mL-1 % ear solution active Not Available Not Available Not Available atorvastatin 10 mg tablet TAKE 1 TABLET BY MOUTH DAILY active Not Available Not Available Not Available sildenafil 25 mg tablet PLEASE SEE ATTACHED FOR DETAILED DIRECTIONS active Not Available Not Available N ot Available hydrocortiso ne 2.5 % topical cream with perineal applicator APPLY RECTALLY 2 TO 4 TIMES A DAY NEEDED FOR HEMORRHOIDS active Not Available Not Available Not Available famotidine 20 mg tablet active Not Available Not Available Not Available prednisolone acetate 1 % eye drops,suspen radha INSTILL 1 DROP INTO LEFT EAR TWICE DAILY FOR 14 DAYS active Not Available Not Available Not Available prednisone 50 mg tablet TAKE 1 TABLET BY MOUTH EVERY DAY X6 DAYS active Not Available Not Available Not Available nicotine 21 mg/24 hr daily transdermal patch APPLY 1 PATCH TOPICALLY X28 DAYS active Not Available Not Available No t Available sertraline 50 mg tablet TAKE 1 TABLET BY MOUTH DAILY active Not Available Not Available Not Available amoxicillin 875 mg-potassium clavulanate 125 mg tablet 1 TAB ORALLY 2 TIMES A DAY FOR 10 DAYS active Not Available Not Available Not Available nabumetone 500 mg tablet TAKE 1 TABLET BY MOUTH 2 TIMES A DAY active Not Available Not Available Not Available Vitals Date Recorded Body temperature Oxygen saturation Oxygen saturation in Arterial blood by Pulse oximetry Respiratory rate Heart rate Systolic blood pressure Diastolic blood pressure Provider Name and Address Organization Details Last Updated DateTime 98.6 [degF] 97 % 97 % 18 /min 78 /min 110 mm[Hg] 73 mm[Hg] Not Available [facility] - production 19:15:58 Social History None recorded. Functional Status None recorded. Mental Status None recorded. Family History Nothing Reported. Medical History No medical history recorded. Past Encounters Encounter ID Performer Location Encounter Start Date Encounter Closed Date Diagnosis/Indication Diagnosis SNOMED-CT Code Diagnosis ICD10 Code [id number] Gerald Toscano MD Main - [facility] [address] [place] [phone] 06/02/2022 19:15:55 06/04/2022 11:40:15 Viral syndrome [id number] B34.9 Health Concerns Section Related Observation LastModified by Organization Detai ls LastModified Time None Recorded Concern Status LastModified by Organization Details LastModified Time None Recorded Advance Directives Directive None Recorded Payers Encounter Date Sequence Insurance Name Policy Number Policy Crockett Covered Member ID Crockett Member ID Guarantor Name 06/02/2022 1 [facility] - DOS PRIOR TO 2022 - DUAL ELIGIBLE (MEDICARE REPLACEMENT/ADV ANTAGE - HMO) [employer] [id number] [employer] Notes Date Note Type Note Provider Name and Address Organization Details Recorded Time 06/02/2022 text/html [facility] Nursing Assessment: Reason For Request: Sick since Wednesday. Went to ED because he could not breathe. Stomach was hurting. Member states ear pain and aches have persisted for months but with recent symptoms ear has developed discharge of liquid. Member describes the stomach pain as burning. States he has to drink something for the pain to subside. Patient Reports: Cough; Shortness of breath with exertion Chief Complaints: Shortness of Breath/Dyspnea, Abdominal Pain, Pain Allergies: aspirin Comments: Spoke with member request [facility] visit for complaints of SOB ear discomfort and abdominal discomfort x 4 days eval in ED and PCP states nothing was done request re-eval deny fevers +chills Member aware medics will not visualize ear canal I want them to come anyway Attempt Motrin with fair effect Gerald Toscano MD [address] [facility],[address], [place], [address], [employer], HERMILO 06/02/2022 19:20:43
--- NOTE | 2024-06-20 07:43 | MHC.PC.OV ---
Vital Signs 06/20/24 07:45 Height 5 ft 8 in Weight 193 lb BMI 29.3 BP 100/64 Blood Pressure Location Lt brachial Position Sitting Pulse 70 Pulse Source Pulse Oximeter Pulse Oximetry (%) 97 Oxygen Delivery Method Room Air Intake Visit Reasons: Followup depression, +PHQ-9 iPhone Allergies aspirin Allergy (Unknown, Verified 06/20/24 07:57) Unknown Medication List - Last Reconciled 06/20/24 by TYREL FariasP- atorvastatin 40 mg PO BEDTIME 90 days bisacodyl (Dulcolax (bisacodyl)) 20 mg (4 x 5 mg) PO ONCE 1 day buspirone 5 mg PO BID cyclobenzaprine 10 mg PO BEDTIME PRN 30 days nabumetone 500 mg PO BID 30 days fytybrej-cxxbmzzqx-FY 3.5-10,000-1 mg/mL-unit/mL-% 4 drps otic (ear) left QID 7 days sertraline 50 mg PO DAILY Tobacco use date assessed: 06/20/24 Dental Screening Dental Screen Date: 04/03/24 HPI Followup depression, +PHQ-9 iPhone HPI Details Chief Complaint Follow-up for depression History of Present Illness The patient is a 44-year-old male presenting with a follow-up for depression. The patient has been under treatment with sertraline, for which he reports good compliance, taking it daily. No current suicidal or homicidal ideations are present, and there is an observable improvement from previous levels, with the patient subjectively reporting feeling better. He is not interested in adjusting the medication dosage at this time. Additionally, he has hypercholesterolemia, previously managed effectively with atorvastatin, resulting in a significant reduction in cholesterol levels. The patient mentions that his previous prescription for 40 mg of atorvastatin needs renewal. For tympanic issues, the patient reports significant itching in the left ear without pain. He has a history of persistent ear problems, with a recent possible microperforation in the tympanic membrane noted. No liquid drainage is reported from the ear. The patient's symptoms include itching and discomfort, but no past drainage or use of ear tubes has been noted. Social History - Family: with two children, a 14-year-old son and a 7-year-old daughter. - Employment: Currently working. - Smoking: Current smoker. Health Maintenance - Patient on atorvastatin for hypercholesterolemia management. - Discussion of cardiovascular risk reduction through potential aspirin use. - Declined vaccinations for influenza and pneumonia. Review of Systems - Psychiatric: Denies suicidal and homicidal ideations. - Skin: Reports significant itching in the left ear. - General: Reports improved mood and reduction of depressive symptoms. Physical Exam General: Cooperative, healthy appearing, comfortable, no acute distress and well developed Orientation: Patient oriented x3 Limitations: No limitations Head: Normal to inspection Ears: Left eardrum has a microperforation, no signs of infection Nose: Normal external nose present Face and sinus: Normal facial exam Eyes: Appearance normal, both eyes and all related structures Neck: Normal visual inspection and Yes full ROM Respiratory: Normal respiratory effort and able to speak in complete sentences. Clear to auscultation bilaterally Cardiovascular: Regular rate and rhythm. Normal S1 and S2 GI: Normal to inspection. Soft to palpation and nontender Skin: No rashes or lesions noted Neuro: Patient oriented x3 Extremities: Normal to inspection Results Plan - Continue current dosage of sertraline for depression management. - Renew prescription for atorvastatin to manage hypercholesterolemia. - Referral to ENT specialist for evaluation of the tympanic membrane perforation. - Avoid water and foreign bodies in the affected ear to prevent irritation or infection. Patient was informed and verbally consented to the use of an ambient scribe for clinic note documentation during this visit. Discussion Notes I discussed with the patient the management plan for his depression, affirming his decision to maintain the current dose of sertraline due to the reported improvement. We acknowledged the significant reduction in cholesterol levels attributed to atorvastatin and will ensure its continued use at the optimal dosage for cardiovascular protection. I recommended a consultation with an ENT specialist to assess the tympanic membrane perforation. We talked about avoiding water and foreign bodies in the ear to manage the ear's microperforation. The patient consented to all suggested measures and declined further vaccinations. He is scheduled for follow-up in October. Patient Instructions - Continue taking sertraline daily as prescribed. - Refill and continue atorvastatin as directed. - Avoid water and other substances entering the left ear. - Attend the scheduled ENT specialist appointment for ear evaluation. - Return for further assessment and follow-up in October. - Avoid unnecessary contact with the ear to prevent exacerbation of symptoms. [facility] Medical History Elevated liver enzymes Chronic left ear pain Thrombosed external hemorrhoid Depression Surgical History History of back surgery Social History Housing: House Patient Tobacco Use Status: Current everyday Tobacco user Cigarettes Per Day: 15 e-Cigarette/Vaping Use: Never Used Second Hand Smoke Exposure: Yes service: No Current occupational status: employed Current occupation: [employer] Current occupational exposures/hazards: No Cognitive needs: No Hearing needs: No Vision needs: No Questionnaire PHQ-9 Over the last 2 weeks, how often have you been bothered by any of the following problems? 04714 - PHQ-9 Billing: Patient declined-do not bill Source: Developed by Drs. Boaz Barker, Kristal Yap, Noe Rosales and colleagues, with an educational giovani from [employer]. Thrive Questionnaire Date Thrive assessed: 04/03/24 I am a: Patient What is your living situation today?: I have a steady place to live Within the past 12 months, did the food you bought not last and you didn't have the money to get more?: I choose not to answer this question Within the past 12 months, did you worry whether your food would run out before you got money to buy more?: I choose not to answer this question Do you have trouble paying for medicines?: No Do you have trouble getting transportation to medical appointments?: No Do you have trouble paying your heating and electricity bill?: I choose not to answer this question Do you have trouble taking care of your child, family member or friend?: No Do you have trouble with day-to-day activities such as bathing, preparing meals, shopping, managing finances, etc.?: No Are you interested in more education?: No Please select the resources that you would like help with: None Currently or been in a relationship where the following occur: I choose not to answer THRIVE Score: 0 AUDIT C Alcohol Use Questionnaire (AUDIT-C) 3. How often do you have six or more drinks on one occasion?: Never Total Score: 0 JOSELYN-7 AMB Questionnaire JOSELYN-7 Date JOSELYN - 7 assessed: 04/03/24 Source: Developed by Drs. Boaz Barker, Kristal Yap, Noe Rosales and colleagues, with an educational giovani from [employer]. Physical exam (Primary Care) Vital Signs: Last Vital Signs Pulse 70 06/20/24 07:45 BP 100/64 06/20/24 07:45 Pulse Ox 97 06/20/24 07:45 Oxygen Delivery Method Room Air 06/20/24 07:45 BMI result Body Mass Index 29.3 Tobacco/Smoking Status: Tobacco use Status Tobacco use date assessed 06/20/24 06/20/24 07:47 Patient Tobacco Use Status Current everyday Tobacco 06/20/24 07:45 e-Cigarette/Vaping Use Never Used 06/20/24 07:45 Thrive Assessment: Date of Thrive Assessment Date Thrive assessed 04/03/24 06/20/24 07:45 Currently or been in a relationship where the following occur: I choose not to answer Coding Level of Care Code Est Pt Level 3 (33360) Diagnoses Depression F32.A TM (tympanic membrane disorder) H73.90 Assessment & Plan Assessment & Plan (1) Depression: Code(s): F32.A - Depression, unspecified Category: Medical (2) TM (tympanic membrane disorder): Comment: SMALL CIRCULAR MICROPERF Code(s): H73.90 - Unspecified disorder of tympanic membrane, unspecified ear Category: Medical Plan . Orders: Referrals Ear/Nose/Throat Referral H73.90 - Unspecified disorder of tympanic membrane, unspecified ear Medications: Refilled cyclobenzaprine 10 mg PO BEDTIME 30 days PRN 30 tabs 1RF muscle spasm nabumetone 500 mg PO BID 30 days 60 tabs 2RF
[2024-06-20 07:45] VITALS: BP 100/64; PULSE 70; O2SAT 97; BMI 29.3
== END 2024-06-20 08:49 | disposition home or self-care (01) ==
PROVIDERS: PCP Nurse Practitioner Family; Visit Provider Nurse Practitioner Family
DX: F32.A Depression, unspecified (principal); H73.90 Unspecified disorder of tympanic membrane, unspecified ear

== ENCOUNTER → 2024-06-20 07:16 | Outpatient (BNVA) | payer OTHER, SELFPAY | PROVIDERS: PCP Nurse Practitioner Family; Visit Provider Nurse Practitioner Family | DX: F32.A Depression, unspecified (principal); H73.90 Unspecified disorder of tympanic membrane, unspecified ear | CPT/HCPCS: 99212 ==

== ENCOUNTER 2024-06-21 10:52 | Outpatient (AMB) | payer OTHER, SELFPAY ==
--- NOTE | 2024-06-21 10:53 | MHC.OFFVIS ---
Vital Signs 06/21/24 10:54 Height 5 ft 8 in Weight 192 lb 14.472 oz BMI 29.3 BP 102/67 Blood Pressure Location Rt brachial Position Sitting Pulse 70 Pulse Source Doppler Pulse Oximetry (%) 97 Oxygen Delivery Method Room Air Intake Visit Reasons: solitary pulm nodule Allergies aspirin Allergy (Unknown, Verified 06/20/24 07:57) Unknown HPI HPI solitary pulm nodule: Details: 44-year-old gentleman active 30+ pack-year smoker, referred pulmonary evaluation for dyspnea on exertion, especially when climbing stairs. Patient also been following with thoracic surgery for abnormal CT chest. He denies prior personal or family history of lung disease. He is employed with no exposure to industrial dusts. He is currently on no bronchodilator therapy. [facility] Medical History Elevated liver enzymes Chronic left ear pain Thrombosed external hemorrhoid Depression Surgical History History of back surgery Social History (Updated 06/21/24 @ 10:58 by Nilsa Galvan [facility]) Housing: House Patient Tobacco Use Status: Current everyday Tobacco user Tobacco use type: Cigarette Cigarette Packs Per Day: 2 Years Smoked: started around age 16, 1PPD e-Cigarette/Vaping Use: Never Used Second Hand Smoke Exposure: Yes service: No Current occupational status: employed Current occupation: [employer] Current occupational exposures/hazards: No Cognitive needs: No Hearing needs: No Vision needs: No Review of Systems Const Denies daytime sleepiness, Denies excessive sweating, Denies fatigue, Denies fever(s), Denies lethargy, Denies malaise, Denies night sweats, Denies snoring and Denies weight loss Eyes Denies blurry vision and Denies itchy eyes ENT Denies nasal congestion, Denies post nasal drip, Denies sinus pain, Denies sinus pressure and Denies other ( Thrush) Card Denies chest pain, Denies pedal edema, Denies dyspnea, Reports dyspnea on exertion, Denies orthopnea and Denies paroxysmal nocturnal dyspnea Resp Denies cough, Denies hemoptysis, Denies excessive phlegm production, Denies dyspnea, Reports dyspnea on exertion, Denies snoring and Denies wheezing GI Denies abdominal pain and Denies heartburn Musc Denies myalgias, Denies arthralgias and Denies joint swelling Skin/Breast Denies rash Neuro Denies memory loss and Denies seizure-like activity Psych Denies abnormal sleep pattern, Denies anxiety and Denies memory loss Endo Denies excessive sweating, Denies fatigue and Denies heat intolerance Rom/Lymph Denies easy bruising Aller/Immun Denies itchy eyes, Denies seasonal rhinorrhea and Denies wheezing Physical Exam Vital Signs: Last Vital Signs Pulse 70 06/21/24 10:54 BP 102/67 06/21/24 10:54 Pulse Ox 97 06/21/24 10:54 Oxygen Delivery Method Room Air 06/21/24 10:54 BMI result Body Mass Index 29.3 Const General: no acute distress and alert Nutritional Appearance: not obese Orientation/consciousness: Other orientation findings ( oriented) HEENT Head: Yes atraumatic Eyes General: appearance normal, both eyes and all related structures Sclerae: sclerae normal EOM: EOMs intact bilaterally Neck Neck: Yes supple Lymphatic: no lymphadenopathy noted Resp Effort & Inspection: normal respiratory effort and no use of accessory muscles Auscultation: clear to auscultation bilaterally Cardio Rate: regular rate Rhythm: regular rhythm Heart sounds: no gallops, no murmurs and no rubs Skin General skin exam: other ( warm) Extrem General: No clubbing, No cyanosis and No edema Assessment & Plan Assessment & Plan (1) Multiple lung nodules on CT: Code(s): R91.8 - Other nonspecific abnormal finding of lung field Category: Surgical Plan: Will repeat CT chest in 6 months from prior. (2) Dyspnea on exertion: Code(s): R06.09 - Other forms of dyspnea Category: Medical Plan: Likely underlying COPD of unclear severity. Will obtain full PFT and start on empiric Anoro. Coding Level of Care Code New Pt Level 4 (53356) Diagnoses Multiple lung nodules on CT R91.8 Dyspnea on exertion R06.09
[2024-06-21 10:54] VITALS: BP 102/67; PULSE 70; O2SAT 97; BMI 29.3
--- OUTSIDE RECORDS SUMMARY | 2024-06-21 10:54 | XMS_ITS | Data Portability ---
Author Organization [email or web address] Address [address] [place] [id number] Care Team Providers Care Guest Service Team Leader Name Role Phone [facility] Referring Provider [phone] Assessment No assessment recorded. Plan of Treatment [...] [id number] Gerald Toscano MD Main - [facility] [address] [place] [phone] 06/02/2022 19:15:55 06/04/2022 11:40:15 Viral syndrome [id number] B34.9 Health Concerns Section Related Observation LastModified by Organization Detai ls LastModified Time None Recorded Concern Status LastModified by Organization Details LastModified Time None Recorded Advance Directives Directive None Recorded Payers Encounter Date Sequence Insurance Name Policy Number Policy Crockett Covered Member ID Crockett Member ID Guarantor Name 06/02/2022 1 [facility] - DOS PRIOR TO 2022 - DUAL ELIGIBLE (MEDICARE REPLACEMENT/ADV ANTAGE - HMO) [employer] [id number] [employer] Notes Date Note Type Note [...] Allergies: aspirin Comments: Spoke with member request [facility] visit for complaints of SOB ear discomfort and abdominal discomfort x 4 days eval in ED and PCP states nothing was done request re-eval deny fevers +chills Member aware medics will not visualize ear canal I want them to come anyway Attempt Motrin with fair effect Gerald Toscano MD [address] [facility],[address], [place], [address], IBRAHIMA - CaprizaDEE DEE, HERMILO 06/02/2022 19:20:43
== END 2024-06-21 11:08 | disposition home or self-care (01) ==
PROVIDERS: PCP Nurse Practitioner Family; Visit Provider Internal Medicine Pulmonary Disease
DX: R91.8 Other nonspecific abnormal finding of lung field (principal); R06.09 Other forms of dyspnea
CPT/HCPCS: 99204

== ENCOUNTER → 2024-06-21 10:52 | Outpatient (BNVA) | payer OTHER, SELFPAY | PROVIDERS: PCP Nurse Practitioner Family; Visit Provider Internal Medicine Pulmonary Disease | DX: R91.8 Other nonspecific abnormal finding of lung field (principal); R06.09 Other forms of dyspnea | CPT/HCPCS: 99202 ==

== ENCOUNTER 2024-08-01 15:09 | Outpatient (REF) | payer OTHER, SELFPAY ==
--- NOTE | 2024-08-01 15:13 | PFT_ITS ---
Flows: FEV1: 85 % of predicted at 3.22 L FVC: 85 % of predicted at 4.05 L FEV1/FVC: 80 % Bronchodilator response: Absent Volumes: Patient unable to perform lung volumes or diffusion capacity maneuvers. Impression: Normal spirometry. No bronchodilator response. Patient was unable to perform lung volumes or diffusion capacity maneuvers. MTDD
--- OUTSIDE RECORDS SUMMARY | 2024-08-01 16:07 | XMS_ITS | Data Portability ---
Author Organization [employer] Address [address] [place] [phone] Care Team Providers Care Personal Care Home Administrator Name Role Phone [facility] Referring Provider [phone] Assessment No assessment recorded. Plan of Treatment [...] and Address Organization Details Last Updated DateTime 2 98.6 [degF] 97 % 97 % 18 /min 78 /min 110 mm[Hg] 73 mm[Hg] Not Available [facility] - production 2 19:15:58 Social History None recorded. Functional Status None recorded. Mental Status None recorded. Family History Nothing Reported. Medical History No medical history recorded. Past Encounters Encounter ID Performer Location Encounter Start Date Encounter Closed Date Diagnosis/Indication Diagnosis SNOMED-CT Code Diagnosis ICD10 Code Diagnosis Note [id number] [facility] [address] [place] [phone] 06/02/2022 19:15:55 06/04/2022 11:40:15 Viral syndrome [id number] B34.9 This 42-year-ol d [facility], a dry cough, and mild exertional dyspnea. His COVID-19 screen was negative and his vital signs were negative. I suspect that he has a viral syndrome and recommende d symptomati c treatment with follow-up with his PCP. The patient agreed with this plan. Health Concerns Section Related Observation LastModified by Organization Detai ls LastModified Time None Recorded Concern Status LastModified by Organization Details LastModified Time None Recorded Advance Directives Directive None Recorded Payers Encounter Date Sequence Insurance Name Policy Number Policy Crockett Covered Member ID Crockett Member ID Guarantor Name 06/02/2022 1 [facility] [place] - DOS PRIOR TO 2022 - DUAL ELIGIBLE (MEDICARE REPLACEMENT/ADV ANTAGE - HMO) [employer] [id number] [employer] Notes Date Note Type Note [...] Allergies: aspirin Comments: Spoke with member request [facility] visit for complaints of SOB ear discomfort and abdominal discomfort x 4 days eval in ED and PCP states nothing was done request re-eval deny fevers +chills Member aware medics will not visualize ear canal I want them to come anyway Attempt Motrin with fair effect Gerald Toscano MD [address] [place] [address],[address], [place], [phone], [employer] 06/02/2022 19:20:43
--- OUTSIDE RECORDS SUMMARY | 2024-08-01 16:07 | XMS_ITS | Data Portability ---
Author Organization [place] - [facility], Allergy Address [address] [address] Care Team Providers Care Floor Grinder Name Role Phone EMILY URBINA Primary Care Provider Assessment Encounter Date Assessment Date Assessment LastModified by Organization Details LastModified Time 07/07/2024 07/07/2024 44-year-old male presents for evaluation of the ears. Otologic exam demonstrates left TM with anterior superior granulation tissue. TMs are generally retracted and intact. EACs are without obstruction or otorrhea. Recommend topical TobraDex twice daily for 10 days. Reviewed drop administration and water precautions. Patient will return for revaluation in 2-3 weeks to assess for resolution. Will offer audiometric testing once infection resolves if hearing loss persists. Patient agrees with plan. [email or web address] Not available 07/07/2024 17:22:08 07/20/2024 07/20/2024 44-year-old male presents for reevaluation of the left myringitis. He reports symptoms resolved with topical TobraDex. Hearing is at baseline. No hearing concerns. TMs are intact and well-aerated. Patient will follow up as needed. [email or web address] Not available 07/20/2024 13:00:53 Plan of Treatment Reminders Order Date Submit Date Provider Last Modified By Organization Details Last Modified Time Details Appointments None recorded. Lab None recorded. Referral None recorded. Procedures None recorded. Surgeries None recorded. Imaging None recorded. Medication Orders TobraDex 0.3 %-0.1 % eye drops,susp ension 2024 025 [facility] #[id number], [address] [facility], [place], [address], 01/03/202 5 14:29:04 Patient TargetsNo targets recorded. Patient InstructionsNo instructions recorded. Reason for Referral None Reported. Problems Name Problem SNOMED Code Status Onset Date Resolution Date Notes Provider Name and Address Organization Details Recorded Time Sensorine ural hearing loss of bilateral ears 718773512 Active 2022 Sensorineu ral hearing loss, bilateral; Note: Date Diagnosed: 07/27/2022 3:01 PM (H90.3) Not Available [facility] 4 03:19:02 Itching of skin 991290082 Active 2022 Pruritus, unspecifie d; Note: Date Diagnosed: 08/03/2022 12:44 PM (L29.9) Not Available [facility] 4 03:19:03 Granulati ons on tympanic membrane 975847421 Active 2024 ANGIE LAWSON PA-C [address] [place] [address], [place], [address] , [facility] - [facility] 5 14:28:05 Problem Notes None recorded. Medical Equipment None Reported. Medications Name Sig Start Date Stop Date Status Note LastModified by Organization Details LastModified Time cyclobenza naomy 10 mg tablet TAKE 1 TABLET BY MOUTH AT BEDTIME NEEDED FOR MUSCLE SPASM active Not Available Not Available No t Available atorvastat in 40 mg tablet TAKE 1 TABLET BY MOUTH AT BEDTIME active Not Available Not Available No t Available buspirone 5 mg tablet TAKE 1 TABLET BY MOUTH TWICE A DAY active Not Available Not Available No t Available neomycin-p olymyxin-h ydrocort 3.5 mg/mL-10,0 00 unit/mL-1 % ear solution PLACE 4 DROPS INTO THE LEFT EAR 4 TIMES A DAY FOR 7 DAYS active Not Available Not Available No t Available atorvastat in 20 mg tablet TAKE 1 TABLET BY MOUTH AT BEDTIME active Not Available Not Available No t Available clotrimazo le 1 % topical solution 2022 active Medicatio n ID: [id number] Du ration Value: 14 Brand Name: clotrimaz ole Send Method: E-Prescri bed Subs Allowed: subs OK Specia l Instructi on: 4 drops to affected ear two times a day X 14 days Medi cationGen ericName: clotrimaz ole Not Available Not Available Not Available sertraline 50 mg tablet TAKE 1 TABLET BY MOUTH EVERY DAY active Not Available Not Available No t Available nabumetone 500 mg tablet TAKE 1 TABLET BY MOUTH 2 TIMES A DAY FOR 30 DAYS active Not Available Not Available No t Available tobramycin 0.3 %-dexameth asone 0.1 % eye drops,susp ension INSTILL 4 DROPS INTO THE LEFT EAR TWICE DAILY FOR 10 DAYS active Not Available Not Available No t Available Laxative (bisacodyl ) 5 mg tablet,del ayed release TAKE 4 TABS BY MOUTH AT NOON THE DAY BEFORE YOUR COLONOSCO PY active Not Available Not Available No t Available rosuvastat in 10 mg tablet TAKE 1 TABLET BY MOUTH EVERY DAY active Not Available Not Available No t Available Gavilax 17 gram/dose oral powder 238 G ORALLY ONCE DIRECTED BY GASTROENT EROLOGY DEPARTMEN T AT [facility] active Not Available Not Available No t Available Anoro Ellipta 62.5 mcg-25 mcg/actuat ion powder for inhalation INHALE 1 PUFF DAILY active Not Available Not Available No t Available Vitals Date Recorded Body height Body mass index (BMI) Body weight Provider Name and Address Organization Details Last Updated DateTime 07/20/2024 172.72 cm 28.9 kg/m2 86187.55 g Codi Green [place] - [facility] 07/20/2024 09:25:48 Social History None recorded. Functional Status None recorded. Mental Status None recorded. Family History Nothing Reported. Medical History No medical history recorded. Past Encounters Encounter ID Performer Location Encounter Start Date Encounter Closed Date Diagnosis/Indication Diagnosis SNOMED-CT Code Diagnosis ICD10 Code Diagnosis Note [id number] NIDIA OCHOA MD [facility] [address] [address] 07/07/2024 13:49:21 07/07/2024 15:13:10 Itching of skin 970360669 L29.9 Sensorineu ral hearing loss of bilateral ears 507816006 H90.3 Granulatio ns on tympanic membrane 912803332 H73.899 left [id number] TYLOR MAHONEY MD [facility] [address] [address] 07/20/2024 09:14:26 07/20/2024 09:36:26 Granulations on tympanic membrane 814713726 H73.899 left Health Concerns Section Related Observation LastModified by Organization Detai ls LastModified Time None Recorded Concern Status LastModified by Organization Details LastModified Time None Recorded Advance Directives Directive None Recorded Payers Encounter Date Sequence Insurance Name Policy Number Policy Crockett Covered Member ID Crockett Member ID Guarantor Name 07/07/2024 1 [facility] - DOS ON OR AFTER 2022 - ONE CARE (MEDICARE REPLACEMENT/ADV ANTAGE - HMO) Reshat Arifi [id number] Reshat Arifi 07/20/2024 1 [facility] - DOS ON OR AFTER 2022 - ONE CARE (MEDICARE REPLACEMENT/ADV ANTAGE - HMO) Reshat Arifi [id number] Reshat Arifi Notes Date Note Type Note Provider Name and Address Organization Details Recorded Time 07/07/2024 text/html 44-year-old male presents for evaluation of the ears. He reports left otalgia for 1 month that improved with unknown otologic drops. He reports left ear pruritus for one year. He has a history of a low-grade fungal ear infection one year ago. He denies history of eczema or psoriasis. Smoker. NIDIA OCHOA MD [address] [place] [address], [phone], [facility] - [facility] 07/08/2024 08:25:39 07/20/2024 text/html 44-year-old male presents for reevaluation of the ears. He reports symptoms resolved with topical TobraDex. Hearing is at baseline. No new concerns. TYLOR MAHONEY MD [address] [place] [address], [phone], [facility] - [facility] 07/20/2024 17:14:21
--- OUTSIDE RECORDS SUMMARY | 2024-08-01 16:07 | XMS_ITS | Clinical Summary ---
Author Organization [facility] ity Address [address] [place] [address] Care Team Providers Care Clinical Data Assistant Name Role Phone Unavailable Primary Care Provider Unavailabl e Social History Tobacco Use Types Packs/Day Years Used Date Smoking Tobacco: Never Assessed Sex and Gender Information Value Date Recorded Sex Assigned at Not on file Gender Identity Not on file Sexual Orientation Not on file Plan of Treatment Health Maintenance Due Date Last Done Comments DTaP,Tdap,and Td Vaccines (1 - Tdap) 1997 Hepatitis B Vaccines (1 of 3 - 19+ 3-dose series) 1997 COVID-19 Vaccine (2023-2 5 season) 2024 Influenza Vaccine (#1) 2024 HIB Vaccines Aged Out No longer eligi ble based on patient's age to complete this topic HPV Vaccines Aged Out No longer eligi ble based on patient's age to complete this topic Hepatitis A Vaccines Aged Out No long er eligible based on patient's age to complete this topic IPV Vaccines Aged Out No longer eligi ble based on patient's age to complete this topic MMR Vaccines Aged Out No longer eligi ble based on patient's age to complete this topic Meningococcal ACWY Vaccine Aged Out N o longer eligible based on patient's age to complete this topic Pneumococcal Vaccine: Pediat rics (0 to 5 Years) and At-Risk Patients (6 to 64 Years) Aged Out No longer eligible b ased on patient's age to complete this topic RSV Immunization Patients Un fr[place]ka 20 months Aged Out No longer eligible b ased on patient's age to complete this topic Varicella Vaccines Aged Out No longer eligible based on patient's age to complete this topic
--- OUTSIDE RECORDS SUMMARY | 2024-08-01 16:08 | XMS_ITS | Continuity of Care Document ---
Author Organization [place] - [facility], [facility] Address [address] [place] [address] Care Team Providers Care Manufacturing Technologist Name Role Phone EMILY URBINA Primary Care Provider [phone] Assessment Encounter Date Assessment Date Assessment LastModified by Organization Details LastModified Time 07/20/2024 07/20/2024 44-year-old male presents for reevaluation [...] Sensorine ural hearing loss of bilateral ears 529568291 Active 2022 Sensorineu ral hearing loss, bilateral; Note: Date Diagnosed: 07/27/2022 3:01 PM (H90.3) Not Available [facility] 4 03:19:02 Itching of skin 921719823 Active 2022 Pruritus, unspecifie d; Note: Date Diagnosed: 08/03/2022 12:44 PM (L29.9) Not Available [facility] 4 03:19:03 Granulati ons on tympanic membrane 694928836 Active 2024 ANGIE LAWSON PA-C [address] [place] [address],[place] [address], [place], [address] , [facility] - [facility] 14:28:05 Problem Notes None recorded. Medical Equipment [...] topical solution 2022 active Medicatio n ID: [id number] Du ration Value: 14 Brand Name: clotrimaz ole Send Method: E-Prescri bed Subs Allowed: subs OK Specia l Instructi on: 4 drops to affected ear two times a day X 14 days [facility] ericName: clotrimaz ole Not Available Not Available [...] DIRECTED BY GASTROENT EROLOGY DEPARTMEN T AT [facility] active Not Available Not Available No t Available Anoro Ellipta 62.5 mcg-25 mcg/actuat ion powder for inhalation INHALE 1 PUFF DAILY active Not Available Not Available No t Available Vitals Date Recorded Body height Body mass index (BMI) Body weight Provider Name and Address Organization Details Last Updated DateTime 07/20/2024 172.72 cm 28.9 kg/m2 96298.55 g Codi Green [place] - [facility] 07/20/2024 09:25:48 Social History None recorded. Functional Status None recorded. Mental Status None recorded. Family History Nothing Reported. Medical History No medical history recorded. Past Encounters Encounter ID Performer Location Encounter Start Date Encounter Closed Date Diagnosis/Indication Diagnosis SNOMED-CT Code Diagnosis ICD10 Code Diagnosis Note [id number] NIDIA OCHOA MD [facility] [address] [address] 07/07/2024 13:49:21 07/07/2024 15:13:10 Itching of skin 344714949 L29.9 Sensorineu ral hearing loss of bilateral ears 992698606 H90.3 Granulatio ns on tympanic membrane 857595518 H73.899 left [id number] TYLOR MAHONEY MD [facility] [address] [address] 07/20/2024 09:14:26 07/20/2024 09:36:26 Granulations on tympanic membrane 402538234 H73.899 left Health Concerns Section Related Observation LastModified by Organization Detai ls LastModified Time None Recorded Concern Status LastModified by Organization Details LastModified Time None Recorded Payers Encounter Date Sequence Insurance Name Policy Number Policy Crockett Covered Member ID Crockett Member ID Guarantor Name 07/20/2024 1 [facility] - DOS ON OR AFTER 2022 - ONE CARE (MEDICARE REPLACEMENT/ADV ANTAGE - HMO) Levar Daniels [id number] [facility] Notes Date Note Type Note Provider Name and Address Organization Details Recorded Time 07/20/2024 text/html 44-year-old male presents for reevaluation of the ears. He reports symptoms resolved with topical TobraDex. Hearing is at baseline. No new concerns. TYLOR MAHONEY MD [address] [place] [address], [place], [address], [facility] - [facility] 07/20/2024 17:14:21
== END 2024-08-01 15:10 | disposition home or self-care (01) ==
LOC: HO.RESP 15:09
PROVIDERS: PCP Nurse Practitioner Family; Visit Provider Internal Medicine Pulmonary Disease
DX: R06.09 Other forms of dyspnea (principal)

== ENCOUNTER → 2024-08-01 15:13 | Outpatient (BNV) | payer OTHER, SELFPAY | PROVIDERS: PCP Nurse Practitioner Family; Visit Provider Internal Medicine Pulmonary Disease | DX: R06.09 Other forms of dyspnea (principal) | CPT/HCPCS: 94060 ==

== ENCOUNTER 2024-11-02 08:50 | Outpatient (AMB) | payer OTHER, SELFPAY ==
--- NOTE | 2024-11-02 08:53 | AM.OFFWIN_ITS ---
Intake Vital Signs 11/02/24 08:55 Weight 197 lb BP 114/80 Blood Pressure Location Rt brachial Position Sitting Pulse 84 Pulse Source Pulse Oximeter Pulse Oximetry (%) 98 Oxygen Delivery Method Room Air Intake Visit Reasons: EP Private issues Intake Note: Patient here for burning sensation in private area that has been present for a couple of days. Patient Tobacco Use Status: Current everyday Tobacco user Allergies aspirin Allergy (Unknown, Verified 11/02/24 08:56) Unknown Do you need a note to return to daycare/school/sports/work: No HPI HPI Comments History of Present Illness Details History of Present Illness - The patient is a 44-year-old male pres enting with a burning sensation in the penis/testicles region, described as extending from the area underneath to the anus. Experiences a sensation of bladder fullness. - Symptoms have persisted for 6 days and improve during urination. - No pain with urination, abnormal penil e discharge, redness, itchiness, rash, lumps, or swelling present per patient. - Negative for urinary tract symptoms peterson ch as hematuria, lower back pain, or fever. - Denies recent sexual activity outside of one consistent partner, minimizing STI risk. - Declined exam - Patient is a current smoker Physical Exam General: Cooperative, healthy appearing, comfortable, no acute distress and well developed Orientation: Patient oriented x3 Limitations: No limitations Head: Normal to inspection Ears: Hearing grossly normal bilaterally Nose: Normal External nose present Face and sinus: Normal facial exam Eyes: Appearance normal, both eyes and all related structures Neck: Normal visual inspection and Yes full ROM Respiratory: Normal respiratory effort and able to speak in complete sentences. Skin: No rashes or lesions noted Neuro: Patient oriented x3 Extremities: Normal to inspection [facility] Medical History (Updated 11/02/24 @ 09:33 by Val Hart PA-C) Dyslipidemia Fatty liver Lung nodule Elevated liver enzymes Chronic left ear pain Thrombosed external hemorrhoid Depression Surgical History History of back surgery Social History (Updated 06/21/24 @ 10:58 by Nilsa Galvan [facility]) Housing: House Patient Tobacco Use Status: Current everyday Tobacco user Tobacco use type: Cigarette Cigarette Packs Per Day: 2 Years Smoked: started around age 16, 1PPD e-Cigarette/Vaping Use: Never Used Second Hand Smoke Exposure: Yes service: No Current occupational status: employed Current occupation: [email or web address] Current occupational exposures/hazards: No Cognitive needs: No Hearing needs: No Vision needs: No Review of Systems Const All systems reviewed & are unremarkable except as noted in HPI and below Physical Exam Vital Signs: Last Vital Signs Pulse 84 11/02/24 08:55 BP 114/80 11/02/24 08:55 Pulse Ox 98 11/02/24 08:55 Oxygen Delivery Method Room Air 11/02/24 08:55 Results AMB Urinalysis, Automated UA Leukoctes 0 Rayray/uL Last Edit by Rosy Orozco CCM on 11/02/24 09:37 UA Nitrite Negative Last Edit by Rosy rOozco [facility] on 11/02/24 09:37 UA Urobilinogen 0.2 mg/dL Last Edit by Rosy Orozco CCM on 11/02/24 09:37 UA Protein 0 mg/dL Last Edit by Rosy Orozco [facility] on 11/02/24 09:37 UA pH 6.0 Last Edit by Rosy Orozco [facility] on 11/02/24 09:37 UA Blood 10 Amos/uL Last Edit by Rosy Orozco CCM on 11/02/24 09:37 UA Specific [place] 1.030 Last Edit by Rosy Orozco [facility] on 11/02/24 09:37 UA Ketone Negative Last Edit by Rosy Orozco CCM on 11/02/24 09:37 UA Bilirubin 1 mg/dL Last Edit by Rosy Orozco [facility] on 11/02/24 09:37 UA Glucose 0 mg/dL Last Edit by Rosy Orozco [facility] on 11/02/24 09:37 Assessment & Plan Assessment & Plan (1) Hematuria: Code(s): R31.9 - Hematuria, unspecified Qualifiers: Hematuria type: other microscopic Qualified Code(s): R31.29 - Other microscopic hematuria Plan: UA negative for infection, + blood and 1+ bilirubin. Patient is a smoker. Spoke with pt's PCP, I will send urine cytology and culture and he will see him at his already scheduled appt next week for further workup. The absence of penile discharge, rash, swelling, and reduced STI risk minimizes the likelihood of sexually transmitted infections. Patient was informed and verbally consented to the use of an ambient scribe for clinic note documentation during this visit. Orders: Orders AMB Urinalysis Automated Today Z13.9 - Encounter for screening, unspecified Urine Culture Today N39.0 - Urinary tract infection, site not specified Urine Cytology Today R31.29 - Other microscopic hematuria Coding Level of Care Code Est Pt Level 3 (18965) Diagnoses Other microscopic hematuria R31.29 Hematuria type: other microscopic
[2024-11-02 08:55] VITALS: BP 114/80; PULSE 84; O2SAT 98
--- OUTSIDE RECORDS SUMMARY | 2024-11-02 09:14 | XMS_ITS | Clinical Summary ---
Author Organization [facility] ity Address [address] [place] [address] Care Team Providers Care Doubler Operator Name Role Phone Unavailable Primary Care Provider Unavailabl e Social History Tobacco Use Types Packs/Day Years Used Date Smoking Tobacco: Never Assessed Sex and Gender Information Value Date Recorded Sex Assigned at Not on file Legal Sex Male 10:08 AM EST Gender Identity Not on file Sexual Orientation Not on file Plan of Treatment Health Maintenance Due Date Last Done Comments DTaP,Tdap,and Td Vaccines (1 - Tdap) 1997 Hepatitis B Vaccines (1 of 3 - 19+ 3-dose series) 1997 COVID-19 Vaccine (2023-2 5 season) 2024 Influenza Vaccine (Season Ended) 2025 HIB Vaccines Aged Out No longer eligi [...] patient's age to complete this topic Meningococcal B Vaccine Aged Out No l onger eligible based on patient's age to complete [...]
--- OUTSIDE RECORDS SUMMARY | 2024-11-02 09:14 | XMS_ITS | Data Portability ---
Author Organization [facility] [place] [facility] [employer] Address [address] [place] [address] Care Team Providers Care Tin Whiz Machine Operator Name Role Phone [facility] Referring Provider [phone] Assessment No assessment recorded. Plan of Treatment [...] Note [id number] [facility] [address] [place] [phone] 06/02/2022 19:15:55 06/04/2022 11:40:15 Viral syndrome [id number] B34.9 This 42-year-ol d [facility], a dry cough, [...] Crockett Member ID Guarantor Name 06/02/2022 1 [facility] - DOS PRIOR TO 2022 - DUAL ELIGIBLE (MEDICARE REPLACEMENT/ADV ANTAGE - HMO) [facility] [id number] [facility] Notes Date Note Type Note [...] Allergies: aspirin Comments: Spoke with member request [facility] visit for complaints of SOB ear discomfort and abdominal discomfort x 4 days eval in ED and PCP states nothing was done request re-eval deny fevers +chills Member aware medics will not visualize ear canal I want them to come anyway Attempt Motrin with fair effect Gerald Toscano MD [address] [place] [address],[address], [place], [address], [employer] - Draft 06/02/2022 19:20:43
--- OUTSIDE RECORDS SUMMARY | 2024-11-02 09:14 | XMS_ITS | Data Portability ---
Author Organization [place] - [facility], Allergy Address [address] [address] Care Team Providers Care Senior Principal Software Engineer Name Role Phone EMILY URBINA Primary Care [...] %-0.1 % eye drops,susp ension 2024 025 [facility]/Pharmacy #[id number], [address] [facility], [place], [address], 01/03/202 5 14:29:04 Patient TargetsNo targets recorded. Patient InstructionsNo instructions recorded. Reason for Referral None Reported. Problems Name Problem SNOMED Code Status Onset Date Resolution Date Notes Provider Name and Address Organization Details Recorded Time Sensorine ural hearing loss of bilateral ears 945292182 Active 2022 Sensorineu ral hearing loss, bilateral; Note: Date Diagnosed: 07/27/2022 3:01 PM (H90.3) Not Available [facility] 4 03:19:02 Itching of skin 546491020 Active 2022 Pruritus, unspecifie d; Note: Date Diagnosed: 08/03/2022 12:44 PM (L29.9) Not Available [facility] 4 03:19:03 Granulati ons on tympanic membrane 498856396 Active 2024 ANGIE LAWSON PA-C [address] [place] [address], [place], [address] , [facility] - [facility] 5 14:28:05 Problem Notes None recorded. [...] topical solution 2022 active Medicatio n ID: [id number] Du ration Value: 14 Brand Name: clotrimaz [...] DIRECTED BY GASTROENT EROLOGY DEPARTMEN T AT [facility] active Not Available Not Available No t Available Anoro Ellipta 62.5 mcg-25 mcg/actuat ion powder for inhalation INHALE 1 PUFF DAILY active Not Available Not Available No t Available Vitals Date Recorded Body height Body mass index (BMI) Body weight Provider Name and Address Organization Details Last Updated DateTime 07/20/2024 172.72 cm 28.9 kg/m2 00842.55 g Codi Green [place] - [facility] 07/20/2024 09:25:48 Social History None recorded. Functional Status None recorded. Mental Status None recorded. Family History Nothing Reported. Medical History No medical history recorded. Past Encounters Encounter ID Performer Location Encounter Start Date Encounter Closed Date Diagnosis/Indication Diagnosis SNOMED-CT Code Diagnosis ICD10 Code Diagnosis Note [id number] ANGIE LAWSON PA-C [facility] [address] [address] 07/07/2024 13:49:21 07/07/2024 15:13:10 Itching of skin 474632669 L29.9 Sensorineu ral hearing loss of bilateral ears 274644493 H90.3 Granulatio ns on tympanic membrane 083063236 H73.899 left [id number] ANGIE LAWSON PA-C [facility] [address] [address] 07/20/2024 09:14:26 07/20/2024 09:36:26 Granulations on tympanic membrane 329290746 H73.899 left Health Concerns Section Related Observation LastModified by Organization Detai ls LastModified Time None Recorded Concern Status LastModified by Organization Details LastModified Time None Recorded Advance Directives Directive None Recorded Payers Encounter Date Sequence Insurance Name Policy Number Policy Crockett Covered Member ID Crockett Member ID Guarantor Name 07/07/2024 1 [facility] - DOS ON OR AFTER 2022 - ONE CARE (MEDICARE REPLACEMENT/ADV ANTAGE - HMO) Reshat Arifi [id number] Reshat Arifi 07/20/2024 1 [facility] - DOS ON OR AFTER 2022 - ONE CARE (MEDICARE REPLACEMENT/ADV ANTAGE - HMO) Reshat Arifi [id number] Reshat Arifi Notes Date Note Type Note [...] eczema or psoriasis. Smoker. NIDIA OCHOA MD [address] [place] [address], [phone], [facility] - [facility] 07/08/2024 08:25:39 07/20/2024 text/html 44-year-old male presents for reevaluation of the ears. He reports symptoms resolved with topical TobraDex. Hearing is at baseline. No new concerns. TYLOR MAHONEY MD [address] [place] [address], [phone], [facility] - [facility] 07/20/2024 17:14:21
== END 2024-11-02 10:27 | disposition home or self-care (01) ==
PROVIDERS: PCP Nurse Practitioner Family; Visit Provider Physician Assistant
DX: Z13.9 Encounter for screening, unspecified (principal); R31.29 Other microscopic hematuria

== ENCOUNTER 2024-11-02 08:50 | Outpatient (REF) | payer OTHER, SELFPAY ==
--- OUTSIDE RECORDS SUMMARY | 2024-11-02 10:32 | XMS_ITS | Clinical Summary ---
Author Organization [facility] ity Address [address] [place] [address] Care Team Providers Care Slicer Machine Operator Name Role Phone Unavailable Primary Care [...]
[2024-11-02 13:08] LABS: Urine Cytology See Pathology rpt
== END 2024-11-02 08:51 | disposition home or self-care (01) ==
LOC: HO.LAB 08:50
PROVIDERS: PCP Nurse Practitioner Family; Visit Provider Physician Assistant
DX: R31.29 Other microscopic hematuria (principal); N39.0 Urinary tract infection, site not specified; Z13.9 Encounter for screening, unspecified
CPT/HCPCS: 81003; 87086; 88112; 99212

== ENCOUNTER 2024-11-08 10:30 | Outpatient (AMB) | payer OTHER, SELFPAY ==
[2024-11-08 10:33] VITALS: BP 116/70; PULSE 86; O2SAT 97; BMI 29.6
--- NOTE | 2024-11-08 10:33 | MHC.PC.OV ---
Vital Signs 11/08/24 10:33 Height 5 ft 8 in Weight 195 lb BMI 29.6 BP 116/70 Blood Pressure Location Rt brachial Position Sitting Pulse 86 Pulse Source Pulse Oximeter Pulse Oximetry (%) 97 Intake Visit Reasons: Annual PE Oracle Database Developer Required: No Accompanied by: Self / Same As Patient Allergies aspirin Allergy (Unknown, Verified 11/08/24 10:33) Unknown Tobacco use date assessed: 11/08/24 Dental Screening Dental Screen Date: 11/08/24 Did you have a dental visit in the last 12 months?: Yes Did you have a dental problem in the last 6 months where you did not have access to dental care?: No Was dental information given to patient?: Patient has dentist HPI Annual PE HPI Details History of Present Illness The patient is a 44-year-old male presenting with chronic lower back pain and severe radiculopathy. He has a history of lumbar fusion surgery conducted several years prior aimed at addressing chronic pain, although he continues to experience substantial discomfort and numbness in the left lower extremity. He denies symptoms typically associated with cauda equina syndrome but does report unusual but non-persistent sensations in the perianal region that are alleviated by ambulation and urination. The patient also reports hematuria, previously evaluated many years ago with a urology referral, but he is uncertain if he attended the appointment. There is a notable history of significant smoking, approximately up to two packs daily, which highlights the need for further investigation of his urological issues. Pt sees pulmonary for lung nodules. Health Maintenance - Smoking cessation advice is imperative due to the patient's significant smoking history. - Referral to urology for further evaluation of hematuria. - Consideration of imaging studies (abdominal and pelvic CT scan) to assess urinary system health. -colon screen was previously cancelled, will order cologuard -refused genital check/GIOVANNI today Social History - Smoking: Significant history of smoking, up to 2 packs per day. Review of Systems - Musculoskeletal: Reports chronic lower back pain and difficulty sitting; severe radiculopathy in left lower extremity. - Genitourinary: Reports hematuria and sensations in the perianal region relieved by urination. - Neurological: Denies signs of cauda equina syndrome. - Constitutional: Denies fever, chills. - Respiratory/Chest: Denies chest pain, increased shortness of breath. - Gastrointestinal: Denies abdominal pain, blood in stool, constipation, diarrhea. - Psychiatric: Denies suicidal or homicidal ideation. Physical Exam General: Cooperative, healthy appearing, comfortable, no acute distress and well developed Orientation: Patient oriented x3 Limitations: Difficulty sitting due to severe pain and numbness down the left lower extremity Head: Normal to inspection Ears: Hearing grossly normal bilaterally Nose: Normal external nose present Face and sinus: Normal facial exam Eyes: Appearance normal, both eyes and all related structures Neck: Normal visual inspection and Yes full ROM Respiratory: Diminished though clear to auscultation bilaterally Cardiovascular: Regular rate and rhythm. S1 and S2 GI: Normal to inspection. Soft to palpation and nontender Skin: No rashes or lesions noted Neuro: Patient oriented x3, positive findings with straight leg raises on the left lower extremity, negative patellar reflex on the left, difficult time sitting and getting into supine position for lower back assessment Extremities: Normal to inspection, severe radiculopathy down the left lower extremity Results Plan I intend to order an MRI of the lumbar spine to understand the origins of the patient's severe radiculopathy in the context of his chronic lower back pain and history of lumbar fusion. The patient's persistent hematuria requires further investigation, warranting urine cytology and culture, along with a referral to urology for comprehensive evaluation. I will arrange for a CT scan of the abdomen and pelvis to rule out any urinary tract abnormalities, motivated by his longstanding smoking habit. Recommendations for smoking cessation will be emphasized due to its potential impact on his presenting condition. If necessary, upon obtaining results, the patient may need additional referrals or adjustments in management. Discussion Notes During the visit, we discussed the importance of evaluating the patient's ongoing lower back pain and radiculopathy with an MRI to guide further management. I explained the potential necessity of involving the spine team depending on the MRI findings. For his hematuria, we discussed the need for urinary cytology, culture, and re-referral to urology, emphasizing the importance of confirming if his hematuria is benign or indicative of a more serious condition. I reviewed the need for a CT scan of his abdomen and pelvis to explore potential factors related to hematuria, in light of his smoking history. We discussed the significance of smoking cessation and I will follow up on this in subsequent visits. All planned evaluations and subsequent referrals were agreed upon. Patient Instructions - Complete the scheduled MRI of the lumbar spine. - Submit a urine sample for cytology and culture. - Attend the referral appointment with urology. - Undergo the CT scan of the abdomen and pelvis when scheduled. - Consider quitting smoking and discuss smoking cessation strategies at the next visit. - Return for follow-up and discuss any new symptoms immediately. [facility] Medical History (Updated 11/08/24 @ 11:17 by Rony Santiago [facility]) Dyslipidemia Fatty liver Lung nodule Elevated liver enzymes Chronic left ear pain Thrombosed external hemorrhoid Depression Surgical History (Updated 11/08/24 @ 11:08 by Rony Santiago [facility]) History of back surgery Social History Housing: House Patient Tobacco Use Status: Current everyday Tobacco user Tobacco use type: Cigarette Cigarette Packs Per Day: 2 Years Smoked: started around age 16, 1PPD e-Cigarette/Vaping Use: Never Used Second Hand Smoke Exposure: Yes service: No Current occupational status: employed Current occupation: [employer] Current occupational exposures/hazards: No Cognitive needs: No Hearing needs: No Vision needs: No Questionnaire PHQ-9 Over the last 2 weeks, how often have you been bothered by any of the following problems? 1. Little interest or pleasure in doing things: not at all 2. Feeling down, depressed, or hopeless: several days 3. Trouble falling or staying asleep, or sleeping too much: several days 4. Feeling tired or having little energy: more than half the days 5. Poor appetite or overeating: more than half the days 6. Feeling bad about yourself - or that you are a failure or have let yourself or your family down: not at all 7. Trouble concentrating on things, such as reading the newspaper or watching television: several days 8. Moving or speaking so slowly that other people could have noticed. Or the opposite - being so fidgety or restless that you have been moving around a lot more than usual: not at all 9. Thoughts that you would be better off or of hurting yourself in some way: not at all Total score: 7 Depression Screening Interpretation: Negative Depression Screening Done: Yes 81535 - PHQ-9 Billing: Yes Source: Developed by Drs. Boaz Barker, Kristal Yap, Noe Rosales and colleagues, with an educational giovani from [employer]. Thrive Questionnaire Date Thrive assessed: 11/08/24 I am a: Patient What is your living situation today?: I have a steady place to live Within the past 12 months, did the food you bought not last and you didn't have the money to get more?: Never true Within the past 12 months, did you worry whether your food would run out before you got money to buy more?: Never true Do you have trouble paying for medicines?: No Do you have trouble getting transportation to medical appointments?: No Do you have trouble paying your heating and electricity bill?: No Do you have trouble taking care of your child, family member or friend?: No Do you have trouble with day-to-day activities such as bathing, preparing meals, shopping, managing finances, etc.?: No Are you currently unemployed and looking for a job?: Yes Are you interested in more education?: No Please select the resources that you would like help with: None Currently or been in a relationship where the following occur: I choose not to answer THRIVE Score: 0 AUDIT C Alcohol Use Questionnaire (AUDIT-C) 1. How often do you have a drink containing alcohol?: Never 3. How often do you have six or more drinks on one occasion?: Never Total Score: 0 Score Reviewed/Action Taken: Yes JOSELYN-7 AMB Questionnaire JOSELYN-7 Date JOSELYN - 7 assessed: 11/08/24 Feeling nervous, anxious, or on edge: 0 = Not at all Not being able to stop or control worryin = Not at all Worrying too much about different things: 0 = Not at all Trouble relaxin = Several days Being so restless that it is hard to sit still: 0 = Not at all Becoming easily annoyed or irritable: 0 = Not at all Feeling afraid as if something awful might happen: 1 = Several days Total JOSELYN-7 score (0-4 normal; 5-9 mild; 10-14 moderate; 15-21 severe): 2 Source: Developed by Drs. Boaz Barker, Kristal Yap, Noe Rosales and colleagues, with an educational giovani from [employer]. JOSELYN-7 Assessment Billing JOSELYN-7 Assessment Tool: JOSELYN-7 Assessment 17478 Physical exam (Primary Care) Vital Signs: Last Vital Signs Pulse 86 05/07/25 10:33 BP 116/70 11/08/24 10:33 Pulse Ox 97 11/08/24 10:33 BMI result Body Mass Index 29.6 Tobacco/Smoking Status: Tobacco use Status Tobacco use date assessed 11/08/24 11/08/24 10:34 Patient Tobacco Use Status Current everyday Tobacco 11/08/24 10:34 Tobacco use type Cigarette 11/08/24 10:34 e-Cigarette/Vaping Use Never Used 11/08/24 10:34 PHQ-9: PHQ-9 Score PHQ-9: Total score 7 11/08/24 10:34 Depression Screening Interpretation: Negative Thrive Assessment: Date of Thrive Assessment Date Thrive assessed 11/08/24 11/08/24 10:34 Currently or been in a relationship where the following occur: I choose not to answer Coding Level of Care Code Est Pt Level 3 (67818) Est Pt Prev Care 40-64y(10248) Diagnoses Physical exam Z00.00 History of back surgery Z98.890 Other microscopic hematuria R31.29 Hematuria type: other microscopic Screening for prostate cancer Z12.5 Additional Codes JOSELYN-7 Assessment Billing - JOSELYN-7 Assessment Tool: JOSELYN-7 Assessment 21656 ([id number]) PHQ-9 - 30669 - PHQ-9 Billing: Yes ([id number]) Assessment & Plan Assessment & Plan (1) Physical exam: Code(s): Z00.00 - Encounter for general adult medical examination without abnormal findings Category: Medical (2) History of back surgery: Comment: spinal fusion Code(s): Z98.890 - Other specified postprocedural states Category: Surgical (3) Hematuria: Code(s): R31.9 - Hematuria, unspecified Category: Medical Qualifiers: Hematuria type: other microscopic Qualified Code(s): R31.29 - Other microscopic hematuria (4) Screening for prostate cancer: Code(s): Z12.5 - Encounter for screening for malignant neoplasm of prostate Category: Medical Plan . Orders: Orders Complete Blood Count Auto Diff Today Z00.00 - Encounter for general adult medical examination without abnormal findings Comprehensive Dickey. Panel Fast Today Z00.00 - Encounter for general adult medical examination without abnormal findings TSH reflex Free T4 Today Z00.00 - Encounter for general adult medical examination without abnormal findings CT abdomen pelvis wo/w IV con Today R31.29 - Other microscopic hematuria Prostate Specific Antigen Scr Today Z12.5 - Encounter for screening for malignant neoplasm of prostate UA CC w/rflx Micro + Cult Today Z00.00 - Encounter for general adult medical examination without abnormal findings Lipid Panel Today Z00.00 - Encounter for general adult medical examination without abnormal findings MR lumbar spine wo/w con Today G89.29 - Other chronic pain, M54.50 - Low back pain, unspecified, Z98.890 - Other specified postprocedural states Urine Cytology Today R31.29 - Other microscopic hematuria Urine Culture Today R31.29 - Other microscopic hematuria Referrals Cologuard Test Z12.11 - Encounter for screening for malignant neoplasm of colon, Z12.12 - Encounter for screening for malignant neoplasm of rectum Urology Referral R31.29 - Other microscopic hematuria
--- OUTSIDE RECORDS SUMMARY | 2024-11-08 11:50 | XMS_ITS | Clinical Summary ---
Author Organization [facility] ity Address [address] [place] [address] Care Team Providers Care Medical Certification Specialist Name Role Phone Unavailable Primary Care Provider [...]
--- OUTSIDE RECORDS SUMMARY | 2024-11-08 11:50 | XMS_ITS | Data Portability ---
Author Organization [place] - [facility], Allergy Address [address] [address] Care Team Providers Care Infrastructure Tech Name Role Phone EMILY URBINA Primary Care [...] %-0.1 % eye drops,susp ension 2024 025 [facility]/Pharmacy #[id number], [address] [facility], [place], [address], 01/03/202 5 14:29:04 Patient TargetsNo targets recorded. Patient InstructionsNo instructions recorded. Reason for Referral None Reported. Problems Name Problem SNOMED Code Status Onset Date Resolution Date Notes Provider Name and Address Organization Details Recorded Time Sensorine ural hearing loss of bilateral ears 978142045 Active 2022 Sensorineu ral hearing loss, bilateral; Note: Date Diagnosed: 07/27/2022 3:01 PM (H90.3) Not Available [facility] 4 03:19:02 Itching of skin 839913776 Active 2022 Pruritus, unspecifie d; Note: Date Diagnosed: 08/03/2022 12:44 PM (L29.9) Not Available [facility] 4 03:19:03 Granulati ons on tympanic membrane 765309893 Active 2024 ANGIE LAWSON PA-C [address] [place] [address], [place], [address] , [facility] - [facility] 5 14:28:05 Problem Notes None recorded. Medical [...] topical solution 2022 active Medicatio n ID: [id number] Du ration Value: 14 Brand Name: clotrimaz [...] DIRECTED BY GASTROENT EROLOGY DEPARTMEN T AT [facility] active Not Available Not Available No t Available Anoro Ellipta 62.5 mcg-25 mcg/actuat ion powder for inhalation INHALE 1 PUFF DAILY active Not Available Not Available No t Available Vitals Date Recorded Body height Body mass index (BMI) Body weight Provider Name and Address Organization Details Last Updated DateTime 07/20/2024 172.72 cm 28.9 kg/m2 15593.55 g Codi Green [place] - [facility] 07/20/2024 09:25:48 Social History None recorded. Functional Status None recorded. Mental Status None recorded. Family History Nothing Reported. Medical History No medical history recorded. Past Encounters Encounter ID Performer Location Encounter Start Date Encounter Closed Date Diagnosis/Indication Diagnosis SNOMED-CT Code Diagnosis ICD10 Code Diagnosis Note [id number] AGNIE LAWSON PA-C [facility] [address] [address] 07/07/2024 13:49:21 07/07/2024 15:13:10 Itching of skin 841940364 L29.9 Sensorineu ral hearing loss of bilateral ears 023700097 H90.3 Granulatio ns on tympanic membrane 116317976 H73.899 left [id number] ANGIE LAWSON PA-C [facility] [address] [address] 07/20/2024 09:14:26 07/20/2024 09:36:26 Granulations on tympanic membrane 760459432 H73.899 left Health Concerns Section Related Observation LastModified by Organization Detai ls LastModified Time None Recorded Concern Status LastModified by Organization Details LastModified Time None Recorded Advance Directives Directive None Recorded Payers Insurance Date Sequence Insurance Name Policy Number Policy Crockett Covered Member ID Crockett Member ID Guarantor Name 07/20/2024 1 [facility] - DOS ON OR AFTER 2022 - ONE CARE (MEDICARE REPLACEMENT/ADV ANTAGE - HMO) Rest Ari [id number] Rest [employer] Notes Date Note Type Note [...] eczema or psoriasis. Smoker. NIDIA OCHOA MD [address] [place] [address], [phone], [facility] 07/08/2024 08:25:39 07/20/2024 text/html 44-year-old male presents for reevaluation of the ears. He reports symptoms resolved with topical TobraDex. Hearing is at baseline. No new concerns. TYLOR MAHONEY MD [address] [place] [address], [phone], [facility] 07/20/2024 17:14:21
--- OUTSIDE RECORDS SUMMARY | 2024-11-08 11:51 | XMS_ITS | Data Portability ---
Author Organization [employer] Address [address] [place] [address] Care Team Providers Care Child Development Instructor Name Role Phone [facility] Referring Provider [phone] Assessment No assessment recorded. Plan of Treatment [...] Note [id number] Gerald [facility]oscano MD [facility] [address] [place] [phone] 06/02/2022 19:15:55 06/04/2022 11:40:15 Viral syndrome 800342520 B34.9 This 42-year-ol d male [facility], a dry [...] Crockett Member ID Guarantor Name 06/02/2022 1 [facility] - DOS PRIOR TO 2022 - DUAL ELIGIBLE (MEDICARE REPLACEMENT/ADV ANTAGE - HMO) [employer] [id number] [employer] Notes Date Note Type Note [...] Allergies: aspirin Comments: Spoke with member request [facility] visit for complaints of SOB ear discomfort and abdominal discomfort x 4 days eval in ED and PCP states nothing was done request re-eval deny fevers +chills Member aware medics will not visualize ear canal I want them to come anyway Attempt Motrin with fair effect Gerald Toscano MD [address] [place] [address],[address], [place], [address], [employer] 06/02/2022 19:20:43
== END 2024-11-08 11:20 | disposition home or self-care (01) ==
LOC: HO.HMCC 10:31
PROVIDERS: PCP Nurse Practitioner Family; Visit Provider Nurse Practitioner Family
DX: Z00.00 Encounter for general adult medical examination without abnormal findings (principal); R31.29 Other microscopic hematuria; Z98.890 Other specified postprocedural states; Z12.5 Encounter for screening for malignant neoplasm of prostate

== ENCOUNTER 2024-11-08 10:30 | Outpatient (REF) | payer OTHER, SELFPAY ==
--- OUTSIDE RECORDS SUMMARY | 2024-11-08 12:48 | XMS_ITS | Clinical Summary ---
Author Organization [facility] ity Address [address] [place] [address] Care Team Providers Care Scrapper Name Role Phone Unavailable Primary Care Provider [...]
[2024-11-08 13:17] LABS: Urine Cytology See Pathology rpt
[2024-11-08 13:34] LABS: Appearance Urine Clear; Color Urine Yellow; Glucose Urine UA Negative (Negative); Leukocyte Esterase Urine Negative (Negative); Nitrite Urine Negative (Negative); PH 5.5 (5.0-9.0); Specific Gravity - Urine 1.025 (1.005-1.025); UMIC TRIGGER UACC YES; Urine Blood Trace (Negative); Urine Ketones Negative (Negative); Urine Protein Negative (Neg-Trace)
[2024-11-08 13:38] LABS: Bacteria Urine None Seen (None Seen); Hyaline Casts Urine 0-2 /LPF (0-2); MANUAL DIFF FLAG NO; Squamous Epithelial Cell Urine 0-2 /HPF (0-2); WBC Urine 0-5 /HPF (0-5)
[2024-11-08 13:46] LABS: Basophils Absolute Auto 0.1 X10*3/uL (0.0-0.2); Basophils Percent Auto 0.7 % (0-2); Eosinophils Absolute Auto 0.3 X10*3/uL (0.0-0.4); Eosinophils Percent Auto 3.4 % (0-4); Hematocrit 44.4 % (42.0-52.0); Hemoglobin 15.7 g/dl (14.0-18.0); Imm Gran Abs Auto 0.04 X10*3/uL (0.00-0.03); Imm Gran Pct Auto 0.5 % (0.0-0.4); Lymphocytes Absolute Auto 2.3 X10*3/uL (1.2-4.9); Lymphocytes Percent Auto 30.2 % (20-40); Mean Corpuscular HGB Conc 35.4 g/dl (31.0-36.0); Mean Corpuscular Hemoglobin 31.2 pg (27.0-33.0); Mean Corpuscular Volume 88.3 fL (80.0-98.0); Mean Platelet Volume 8.8 fL (9.4-12.4); Monocytes Absolute Auto 0.7 X10*3/uL (0.1-1.2); Monocytes Percent Auto 9.7 % (2-11); Neutrophils Absolute Auto 4.2 x10*3/uL (2.0-8.3); Neutrophils Percent Auto 55.5 % (45-73); Platelet Count 261 X10*3/uL (160-400); Red Blood Count 5.03 X10*6/uL (4.60-5.80); Red Cell Distribution Width 11.9 % (11.0-16.0); White Blood Count 7.6 X10*3/uL (4.8-10.8)
[2024-11-08 14:23] LABS: Prostate Specific Antigen Scr 0.42 ng/mL (<0.05-4.0)
[2024-11-08 14:25] LABS: Alanine Aminotransferase 33 U/L (0-40); Albumin Level 4.3 g/dL (3.5-5.0); Alkaline Phosphatase 101 U/L (39-117); Anion Gap 10 (12-20); Aspartate Amino Transferase 26 U/L (5-37); Bilirubin Total 1.1 mg/dL (0.0-1.0); Blood Urea Nitrogen 16 mg/dL (9-16); Calcium 9.1 mg/dL (8.4-10.2); Carbon Dioxide 24 mmol/L (22-29); Chloride 109 mmol/L (96-108); Cholesterol 157 mg/dL (<200); Estimated Glomerular Filt Rate > 60; Glucose Fasting 90 mg/dL (60-99); HDL Cholesterol 37 mg/dL (>40); LDL Cholesterol Calculated 89 mg/dL (<100); Potassium 4.2 mmol/L (3.3-5.1); Sodium 139 mmol/L (135-145); TSH reflex Free T4 0.91 uIU/mL (0.32-4.0); Total Protein 7.1 g/dL (6.5-8.0); Triglycerides 155 mg/dL (<150)
== END 2024-11-08 10:31 | disposition home or self-care (01) ==
LOC: HO.HMGCLDS 10:30
PROVIDERS: PCP Nurse Practitioner Family; Visit Provider Nurse Practitioner Family
DX: Z00.01 Encounter for general adult medical examination with abnormal findings (principal); R31.29 Other microscopic hematuria; G89.29 Other chronic pain; M54.50 Low back pain, unspecified; Z12.5 Encounter for screening for malignant neoplasm of prostate
CPT/HCPCS: 36415; 80053; 80061; 81001; 84153; 84443; 85025; 87086; 88112; 96127; 99212; 99396

== ENCOUNTER 2024-11-28 08:59 | Outpatient (REF) | payer OTHER, SELFPAY ==
--- NOTE | ~2024-11-28 | CT_ITS ---
EXAMINATION: CT ABDOMEN AND PELVIS WITHOUT AND WITH CONTRAST CLINICAL INFORMATION: Microscopic hematuria. COMPARISON: None available. TECHNIQUE: Multidetector volumetric imaging was performed of the abdomen and pelvis before and after the IV administration of 65 mL of Omnipaque 350 strength intravenous contrast. Sagittal and coronal reformatted images were obtained on the technologist's workstation. This CT examination was performed using dose optimization techniques as appropriate, variously including the following: *Automated exposure control *Adjustment of mA and/or kV according to patient size (this includes techniques or standardized protocols for targeted exams where dose is matched to indication/reason for exam; i.e. extremities or head) *Use of iterative reconstruction technique DLP: 806 mGy centimeter. FINDINGS: LUNG BASES: No acute airspace disease or gross pulmonary nodules in the included lung bases. LIVER, GALLBLADDER, AND BILIARY TREE: Liver measures 16 cm. The dome is excluded from the [id number]. The portal veins, intrahepatic portion of the IVC and included hepatic veins are patent. No pericholecystic fluid collection or gallbladder wall thickening. No intrahepatic or extrahepatic biliary ductal dilatation. PANCREAS: No focal lesion. No peripancreatic fluid collection. No main pancreatic ductal dilatation. SPLEEN: 10 cm. No focal lesion. ADRENAL GLANDS: No nodular lesions. KIDNEYS AND URETERS: Right kidney: No hydronephrosis. No nephrolithiasis. Normal urinary excretion into the collecting system/ureter. No gross mass. Left kidney: No hydronephrosis. No nephrolithiasis. Normal urinary excretion into the collecting system/ureter. There is an 8 mm exophytic heterogeneous predominantly fat density lesion in the posterior upper pole midportion.. BLADDER: Fluid-filled nearly collapsed. GASTROINTESTINAL TRACT: Abundant stool, large intestine. No intestinal obstruction pattern. No pneumatosis intestinalis. Appendix is normal. No gross intestinal wall thickening. No ascites. No pneumoperitoneum. ABDOMINAL WALL: Small fat-containing umbilical hernia. LYMPH NODES: Nonspecific mildly prominent mesenteric and retroperitoneum. VASCULAR: Calcified plaques without aneurysm or dissection, abdominal aorta. PELVIC VISCERA: No gross masses. OSSEOUS STRUCTURES: Status post posterior L5-S1 fusion and arthrodesis with intervertebral disc spacer placement at L5-S1. No acute fracture. Grade 1 retrolisthesis L4-5. Degenerative changes in the hips. No acute fracture or dislocation in either hip. CT/CT abdomen pelvis wo/w IV con IMPRESSION: No hydronephrosis or nephrolithiasis. 8 mm exophytic hyperdensity posterior midportion left kidney consider a cortical irregularity defect versus less likely angiomyolipoma. Fleischner guidelines were followed. Electronically signed by: Rigo Anderson MD 11/28/2024 10:58 AM EDT RP
--- OUTSIDE RECORDS SUMMARY | 2024-11-28 09:26 | XMS_ITS | Clinical Summary ---
Author Organization [facility] ity Address [address] [place] [address] Care Team Providers Care Safety Fire Boss Name Role Phone Unavailable Primary Care Provider [...]
[2024-11-28] MEDS: iohexoL 350 MG/ML 100 ML INFUS..BTL 85 ML IV (09:48)
== END 2024-11-28 09:00 | disposition home or self-care (01) ==
LOC: HO.CT 08:59
PROVIDERS: PCP Nurse Practitioner Family; Visit Provider Nurse Practitioner Family
DX: R31.29 Other microscopic hematuria (principal)
CPT/HCPCS: 74178; Q9967

== ENCOUNTER → 2024-11-28 09:05 | Outpatient (BNV) | payer OTHER, SELFPAY | PROVIDERS: PCP Nurse Practitioner Family; Visit Provider Radiology Diagnostic Radiology | DX: R93.422 Abnormal radiologic findings on diagnostic imaging of left kidney (principal) | CPT/HCPCS: 74178 ==

== ENCOUNTER 2024-11-29 12:48 | Outpatient (REF) | payer OTHER, SELFPAY ==
--- NOTE | ~2024-11-29 | MR_ITS ---
EXAMINATION: MR LUMBAR SPINE WITHOUT AND WITH CONTRAST CLINICAL INFORMATION: Post procedural states. COMPARISON: April 29, 1626, TECHNIQUE: MRI of the lumbar spine was obtained using routine sequences with and without contrast. Intravenous contrast: Gadolinium based (Gadavist) 9 mL. No reported immediate complications. FINDINGS: Last rib-bearing vertebra labeled T12. Paramagnetic field distortion secondary to metallic hardware at L5-S1 including an intervertebral disc spacer placement and transpedicular screws. No bone marrow STIR signal abnormality. No abnormal enhancement within the prevertebral compartment, nor the neural elements of the central spinal canal. Mild multilevel disc desiccation. Grade 1 retrolisthesis L4-5. Conus medullaris ends at pedicle of L1 with normal morphology. No abnormal enhancement. There is no grouping or clumping of the elements of the thecal sac. There is no empty thecal sac sign. T12-L1: No disc herniation. No neuroforamina stenosis. L1-2: Broad-based disc bulging. Facet joint hypertrophy. No compression upon neural elements. L2-3: Broad-based disc bulging. Facet joint hypertrophy. No compression upon neural elements. L3-4: Broad-based disc bulging. Facet joint and ligamentum flavum hypertrophy. Reduced AP diameter of the thecal sac. No compression upon neural elements. L4-5: Broad-based disc bulging. Grade 1 retrolisthesis. Facet joint and ligamentum flavum hypertrophy. Reduced AP diameter of the thecal sac and the neural foramina likely encroaching the neural elements. L5-S1: Post surgical changes. Prominent epidural fat in a circumferential fashion. No prevertebral compartment hematoma, mass or fluid collection. Asymmetric volume loss left psoas muscle likely denervation.. MR/MR lumbar spine wo/w con IMPRESSION: No phlegmon/ abscess. No arachnoiditis. Spondylosis resulting grade 1 retrolisthesis central spinal canal and bilateral neuroforamina stenosis at L4-5 likely encroaching the neural elements. Electronically signed by: Rigo Anderson MD 11/29/2024 02:17 PM EDT
--- OUTSIDE RECORDS SUMMARY | 2024-11-29 13:29 | XMS_ITS | Clinical Summary ---
Author Organization [facility] ity Address [address] [place] [address] Care Team Providers Care Mortgage Loan Officer Originator Name Role Phone Unavailable Primary Care Provider [...]
[2024-11-29] MEDS: gadobutroL 10 ML VIAL IVPUSH (13:32)
== END 2024-11-29 12:49 | disposition home or self-care (01) ==
LOC: HO.MRI 12:48
PROVIDERS: PCP Nurse Practitioner Family; Visit Provider Nurse Practitioner Family
DX: M54.50 Low back pain, unspecified (principal); G89.29 Other chronic pain; Z98.890 Other specified postprocedural states
CPT/HCPCS: 72158; A9585

== ENCOUNTER → 2024-11-29 12:55 | Outpatient (BNV) | payer OTHER, SELFPAY | PROVIDERS: PCP Nurse Practitioner Family; Visit Provider Radiology Diagnostic Radiology | DX: M43.16 Spondylolisthesis, lumbar region (principal) | CPT/HCPCS: 72158 ==

== ENCOUNTER 2024-12-25 10:17 | Outpatient (AMB) | payer OTHER, SELFPAY ==
--- NOTE | 2024-12-25 10:32 | MHC.OFFVIS ---
Vital Signs 12/25/24 10:34 Height 5 ft 8 in Weight 190 lb BMI 28.9 BP 95/66 Blood Pressure Location Lt brachial Position Sitting Respiration 16 Pulse 62 Pulse Source Pulse Oximeter Pulse Oximetry (%) 98 Oxygen Delivery Method Room Air Intake Visit Reasons: Low back pain, unspecified Veneer Measurer Required: No Allergies aspirin Allergy (Unknown, Verified 12/25/24 10:35) Unknown Medication List - Last Reconciled 12/25/24 by Isabella Malik LPN atorvastatin 40 mg PO BEDTIME 90 days buspirone 5 mg PO BID cyclobenzaprine 10 mg PO BEDTIME PRN 30 days nabumetone 500 mg PO BID 30 days sertraline 50 mg PO DAILY umeclidinium-vilanterol 62.5-25 mcg/actuation (Anoro Ellipta) 1 inh inhalation DAILY HPI HPI Low back pain, unspecified: Details: History of Present Illness The patient is a 44-year-old male presenting with back pain and complications following back surgery. 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 He underwent three back surgeries, including a fusion, with the first fusion occurring around 2011 to 2014. The surgeries were performed by Dr. Solis. The patient reports experiencing numbness and tingling in the knee when sitting, and pain radiating from the left ankle to the toes. He has declined further injections due to a previous adverse reaction causing shortness of breath, which resolved without hospitalization. 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 He reports difficulty lifting objects and standing for prolonged periods. Pain Description - Onset: Pain following back surgeries - Quality: Numbness and tingling in the knee, radiating pain from left ankle to toes - Exacerbating factors: Sitting, lifting, standing for prolonged periods - Relieving factors: None discussed - Interference: Difficulty with lifting and prolonged standing Physical Exam - Appears afebrile. - Alert and oriented. - Mood and affect appropriate. - Follows and participates in conversation appropriately. - Respiratory effort is unlabored. - Able to transition from sit to stand unassisted. - Ambulates with bilaterally normal heel strike and toe off. - Able to stand and walk on toes and heels. Results - MRI: S1 nerve root impingement Pain Management - Affect: Not discussed - Analgesia: Gabapentin prescribed for neuropathic symptoms - Adverse Effects: Previous injection caused shortness of breath - Activities of Daily Living: Difficulty with lifting and prolonged standing - Aberrant Drug Related Behaviors: None reported [facility] Medical History Dyslipidemia Fatty liver Lung nodule Elevated liver enzymes Chronic left ear pain Thrombosed external hemorrhoid Depression Surgical History History of back surgery Social History Housing: House Are you a primary laboratory animal caretaker to a significant other at home: No Do you presently have visiting nurse or other home services: No Patient Tobacco Use Status: Current everyday Tobacco user Tobacco use type: Cigarette Cigarette Packs Per Day: 2 Cigarettes Per Day: 40.0 Years Smoked: started around age 16, 1PPD e-Cigarette/Vaping Use: Never Used Second Hand Smoke Exposure: Yes service: No Current occupational status: employed Current occupation: [employer] Current occupational exposures/hazards: No Cognitive needs: No Hearing needs: No Vision needs: No Physical Exam Vital Signs: Last Vital Signs Pulse 62 12/25/24 10:34 Resp 16 12/25/24 10:34 BP 95/66 12/25/24 10:34 Pulse Ox 98 12/25/24 10:34 Oxygen Delivery Method Room Air 12/25/24 10:34 BMI result Body Mass Index 28.9 Assessment & Plan Assessment & Plan (1) History of back surgery: Comment: spinal fusion Code(s): Z98.890 - Other specified postprocedural states Category: Surgical (2) Chronic lower back pain: Comment: with radicular symptoms Code(s): M54.50 - Low back pain, unspecified; G89.29 - Other chronic pain Category: Medical Plan Plan - Prescribed gabapentin to be taken at night for neuropathic symptoms. - Provided brochure on spinal cord stimulation for future consideration. - Advised follow-up as needed based on symptom progression. - Offered injections; he is not interested in injections. Patient was informed and verbally consented to the use of an ambient scribe for clinic note documentation during this visit. Discussion Notes I discussed with the patient the diagnosis of failed back surgery syndrome and the associated S1 nerve root impingement. We reviewed the option of spinal cord stimulation, which the patient declined at this time, but I provided a brochure for further consideration. I prescribed gabapentin to manage neuropathic symptoms and advised the patient to follow up as needed. Patient Instructions - Take gabapentin at night as it may cause drowsiness. - Consider reading the brochure on spinal cord stimulation for future treatment options. - Follow up with the clinic as needed based on symptom changes. Medications: New gabapentin 300 mg PO BEDTIME 30 caps 3RF Coding Level of Care Code New Pt Level 4 (03693) Diagnoses History of back surgery Z98.890 Chronic lower back pain M54.50; G89.29
[2024-12-25 10:34] VITALS: BP 95/66; PULSE 62; RESP 16; O2SAT 98; BMI 28.9
--- OUTSIDE RECORDS SUMMARY | 2024-12-25 11:25 | XMS_ITS | Clinical Summary ---
Author Organization [facility] ity Address [address] [place] [address] Care Team Providers Care Olive Brine Tester Name Role Phone Unavailable Primary Care Provider [...]
== END 2024-12-25 11:04 | disposition home or self-care (01) ==
LOC: HO.PMC 10:18
PROVIDERS: PCP Nurse Practitioner Family; Referring Provider Nurse Practitioner Family; Visit Provider Internal Medicine
DX: Z98.890 Other specified postprocedural states (principal); M54.50 Low back pain, unspecified; G89.29 Other chronic pain
CPT/HCPCS: 99204

== ENCOUNTER → 2024-12-25 10:17 | Outpatient (BNVA) | payer OTHER, SELFPAY | PROVIDERS: PCP Nurse Practitioner Family; Referring Provider Nurse Practitioner Family; Visit Provider Internal Medicine | DX: M54.50 Low back pain, unspecified (principal); G89.29 Other chronic pain; Z98.890 Other specified postprocedural states | CPT/HCPCS: 99202 ==

== ENCOUNTER 2024-12-28 08:33 | Day surgery (SDC) | payer OTHER, SELFPAY ==
--- OUTSIDE RECORDS SUMMARY | 2024-12-06 13:30 | XMS_ITS | Clinical Summary ---
Author Organization [facility] ity Address [address] [place] [address] Care Team Providers Care Food Porter Name Role Phone Unavailable Primary Care Provider [...]
--- NOTE | 2024-12-27 12:07 | HO.ANESPROP2 ---
Documented by User: Lynda Barajas NP 12/27/24 12:07 HPI - Anesthesia Eval Consult details Narrative: 44yo M for Colonoscopy PMFSH Active Problems Active Problems: All Active Problems Positive colorectal cancer screening using Cologuard test (Acute) Screening for prostate cancer (Acute) Chronic lower back pain (Acute) History of back surgery (Acute) Hematuria (Acute) Dyspnea on exertion (Acute) TM (tympanic membrane disorder) (Acute) Otitis externa of left ear (Acute) Incidental lung nodule, greater than or equal to 8mm (Acute) Multiple lung nodules on CT (Acute) Screening for colon cancer (Acute) Inflammatory pain (Acute) Fatty liver (Acute) Acute hemorrhoid (Acute) Smoker (Acute) Ear itching (Acute) Microscopic hematuria (Acute) Depression, major, recurrent (Acute) Physical exam (Acute) Dyslipidemia (Acute) Otitis externa (Acute) Chronic left ear pain (Acute) Thrombosed external hemorrhoid (Acute) Depression (Acute) Past Medical History Medical History Dyslipidemia Fatty liver Lung nodule Elevated liver enzymes Chronic left ear pain Thrombosed external hemorrhoid Depression Surgical History Surgical History History of back surgery Social History Social History Housing: House Are you a primary senior care provider to a significant other at home: No Do you presently have visiting nurse or other home services: No Patient Tobacco Use Status: Current everyday Tobacco user Tobacco use type: Cigarette Cigarette Packs Per Day: 2 Cigarettes Per Day: 40.0 Years Smoked: started around age 16, 1PPD Smoked in Last 30 Days: No e-Cigarette/Vaping Use: Never Used Patient Interested in Nicotine Replacement: No Patient Given Instructions on How to Stop Smoking: No Second Hand Smoke Exposure: Yes Use of substances other than those prescribed or required for medical reasons: No Have you been hit, kicked, punched, or otherwise hurt by someone within the past year? If so, by whom?: No Are you DNR?: No Advance Directives: No Advance Directives Information Provided: Yes Advance Directives on File: No Poor oral hygiene: No service: No Current occupational status: employed Current occupation: [employer] Current occupational exposures/hazards: No Cognitive needs: No Hearing needs: No Vision needs: No Meds Allergies Allergy/AdvReac Type Severity Reaction Status Date / Time aspirin Allergy Unknown Unknown Verified 12/25/24 10:35 Assessment and Plan Assessment Anesthesia Assessment: Chart Reviewed Documented by User: Molly Padilla MD 12/28/24 09:30 [facility] Past Medical History Medical History Dyslipidemia Fatty liver Lung nodule Elevated liver enzymes Chronic left ear pain Thrombosed external hemorrhoid Depression Family History Family history of problems with anesthesia: No Surgical History Surgical History History of back surgery History of Problems with Anesthesia: No Social History Social History Housing: House Are you a primary senior care provider to a significant other at home: No Do you presently have visiting nurse or other home services: No Patient Tobacco Use Status: Current everyday Tobacco user Tobacco use type: Cigarette Cigarette Packs Per Day: 2 Cigarettes Per Day: 40.0 Years Smoked: started around age 16, 1PPD Smoked in Last 30 Days: No e-Cigarette/Vaping Use: Never Used Patient Interested in Nicotine Replacement: No Patient Given Instructions on How to Stop Smoking: No Second Hand Smoke Exposure: Yes Use of substances other than those prescribed or required for medical reasons: No Have you been hit, kicked, punched, or otherwise hurt by someone within the past year? If so, by whom?: No Are you DNR?: No Advance Directives: No Advance Directives Information Provided: Yes Advance Directives on File: No Poor oral hygiene: No service: No Current occupational status: employed Current occupation: [employer] Current occupational exposures/hazards: No Cognitive needs: No Hearing needs: No Vision needs: No Meds Allergies Allergy/AdvReac Type Severity Reaction Status Date / Time aspirin Allergy Unknown Unknown Verified 12/25/24 10:35 Exam Airway Mallampati Class: II TM Dist: >3cm Neck ROM: Full Heart: rrr Lungs: cta Assessment and Plan Assessment Anesthesia Assessment: Anesthesia Plan Discussed Final Anesthetic Review Family History of Problems with Anesthesia: No History of Problems with Anesthesia: No NPO: Yes ASA Class: II Final Preanesthetic Review: No Changes in Pt Med Stat, Meds/Allgs Chart Reviewed, Consent Obtained/Reviewed and Anes Risks/Benef Reviewed Patient Risk: Low Procedure Risk: Low Anesthetic Plan Anesthetic Plan: MAC: Disposition: Standard PACU
[2024-12-28 08:43] VITALS: BMI 28.6
[2024-12-28 08:48] VITALS: BP 108/72; PULSE 66; RESP 16; TEMP 36.2; O2SAT 98
[2024-12-28] MEDS: Lactated Ringers 1,000 ML 100 ML IVCONT (08:53)
--- NOTE | 2024-12-28 09:28 | MHC.SHP ---
Pre-Procedural Eval Section A - 24 Hr Update-Section A only Date of Service: 12/28/24 Section B - Complete if H&P > 30 days Chief Complaint: positive cologuard Relevant Family History (Specify if Yes): No Relevant Social History: Tobacco Use Present Medications: see Short Stay Collaborative assessment Medical History: Significant History (Dyslipidemia Fatty liver Lung nodule Elevated liver enzymes Chronic left ear pain Thrombosed external hemorrhoid Depression) History of Previous Operations: Relevant previous surgery/procedure and date(s) ( History of back surgery) Allergies: Allergies Allergy/AdvReac Type Severity Reaction Status Date / Time aspirin Allergy Unknown Unknown Verified 12/25/24 10:35 Review of Systems Sugical H&P ROS: Negative: Constitution, Cardiovascular, Respiratory, Neurological, Psychiatric, Hem-Onc, Allergic/Immunologic, Gastrointestinal, Genitourinary, Musculoskeletal, Integumentary, Endocrine and Eyes/Ears/Nose/Throat Exam Surgical H&P Exam: Normal: HEENT, Normal: Heart, Normal: Lungs, Normal: Extremities, Normal: Abdomen, Normal: Skin and Normal: Neurological Plan Diagnosis/Plan: Unchanged I have reviewed the history and physical and performed a pertinent physical examination on my patient. No changes have occurred unless specified. Time Spent With Patient Time: Total time managing care of this patient today ____ minutes.
--- NOTE | 2024-12-28 10:33 | HO.OPN-COLON ---
Colonoscopy Operative Note Operative Note Date of Service: 12/28/24 Narrative: Operative Information Procedure Description: Colonoscopy Indication: pos cologuard Anesthesia: MAC COLONOSCOPY Instrument: Olympus variable stiffness pediatric scope 190L Colonoscopy Monitoring: Vital signs and clinical assessment, continuous EKG monitoring, Pulse oximetry, Carbon Dioxide monitoring and blood pressure monitoring were done throughout the procedure. Colon withdrawal time was 23 minutes. Procedure: The patient was placed in the left lateral decubitis position and pre-procedure medications were administered. After a digital rectal examination of the ano-rectum, the video colonoscope was inserted into the rectum and advanced through the colon to the cecum/TI. The colonoscope was slowly withdrawn in a retrograde panoramic fashion and the colon mucosa was carefully examined including a retroflexed view of the rectum. Findings and interventions are described below. Procedure Difficulty: easy Findings: Terminal Ileum-normal Cecum: x 2 sessile polyps 10 mm lifted with eleview and removed with cold snare Ascending Colon: normal Transverse Colon -normal Descending Colon: x 7 sessile polyps removed with cold snare, x 2 were lifted with eleveiw, ranging from 6-9 mm in length Sigmoid Colon: mild diverticulosis, x 3 sessile polyps 6-8 mm removed with cold snare Rectum: Retroflexion with small internal hemorrhoids seen, grade I with skin tags, x1 sessile polyp 7-9 mm removed with cold snare and x1 sessile polyp 4-5 mm removed with cold forceps Anorectum - normal Intervention: cold snare, eleview injection, cold forceps Colon preparation: [place] Bowel Preparation Scale Right colon; 2 Transverse colon: 2 Left colon; 2 (0 = Unprepared colon segment with mucosa not seen due to solid stool that cannot be cleared. 1 = Portion of mucosa of the colon segment seen, but other areas of the colon segment not well seen due to staining, residual stool and/or opaque liquid. 2 = Minor amount of residual staining, small fragments of stool and/or opaque liquid, but mucosa of colon segment seen well. 3 = Entire mucosa of colon segment seen well with no residual staining, small fragments of stool or opaque liquid) Impression and Post Procedure Diagnosis: diverticulosis colon polyps x 16 internal hemorrhoids Plan: High fiber diet leaflet Avoid straining at stool, epsom salts and sitz bath, anusol supps or cream Repeat Colonoscopy in 6-12 months or earlier if clinically indicated Above findings were reviewed with the patient and relevant handouts were provided if indicated.
[2024-12-28 10:40] VITALS: BP 81/50; PULSE 52; RESP 17; TEMP 36.2; O2SAT 95
[2024-12-28 10:44] VITALS: BP 86/53; PULSE 52; RESP 17; O2SAT 95
[2024-12-28 10:55] VITALS: BP 99/66; PULSE 68; RESP 16; O2SAT 96
[2024-12-28 11:05] VITALS: BP 100/69; PULSE 66; RESP 20; TEMP 36.1; O2SAT 97
== END 2024-12-28 11:40 | disposition home or self-care (01) ==
PROVIDERS: PCP Nurse Practitioner Family; Visit Provider Internal Medicine Gastroenterology
PROC: 0DJD8ZZ Inspection of Lower Intestinal Tract, Via Natural or Artificial Opening Endoscopic (ICD-10-PCS; CPT 45378; principal; 2024-12-28 10:50)
DX: R19.5 Other fecal abnormalities (principal); D12.0 Benign neoplasm of cecum; D12.4 Benign neoplasm of descending colon; D12.5 Benign neoplasm of sigmoid colon; D12.8 Benign neoplasm of rectum; K57.30 Diverticulosis of large intestine without perforation or abscess without bleeding; K64.0 First degree hemorrhoids; K64.4 Residual hemorrhoidal skin tags; K76.0 Fatty (change of) liver, not elsewhere classified; E78.5 Hyperlipidemia, unspecified; F17.210 Nicotine dependence, cigarettes, uncomplicated
CPT/HCPCS: 45385; 45380; 45381; 88305; J2003; J2704

== ENCOUNTER → 2024-12-28 08:33 | Outpatient (BNV) | payer OTHER, SELFPAY | PROVIDERS: PCP Nurse Practitioner Family; Visit Provider Internal Medicine Gastroenterology | DX: Z12.11 Encounter for screening for malignant neoplasm of colon (principal); R19.4 Change in bowel habit; K63.5 Polyp of colon; K64.8 Other hemorrhoids | CPT/HCPCS: 45380; 45385 ==

== ENCOUNTER 2025-01-15 12:49 | Outpatient (REF) | payer OTHER, SELFPAY | END 2025-01-15 12:50 | disposition home or self-care (01) | LOC: HO.LNP 12:49 | PROVIDERS: PCP Nurse Practitioner Family; Visit Provider Nurse Practitioner Family | DX: R31.29 Other microscopic hematuria (principal); N28.9 Disorder of kidney and ureter, unspecified; F17.210 Nicotine dependence, cigarettes, uncomplicated; Z13.9 Encounter for screening, unspecified; Z79.899 Other long term (current) drug therapy | CPT/HCPCS: 81003; 88112; 99202 ==

== ENCOUNTER 2025-01-15 12:49 | Outpatient (AMB) | payer OTHER, SELFPAY ==
--- NOTE | 2025-01-15 12:58 | A.OFFVIS_ITS ---
Intake Visit Reasons: microscopic hematuria Intake Note: New Patient is present for microscopic hematuria Urology Rx:none Blood Thinners:none Ibm Bpm Developer Required: No Accompanied by: Self / Same As Patient Allergies aspirin Allergy (Unknown, Verified 01/15/25 13:57) Unknown Medication List - Last Reconciled 01/15/25 by MATT Elliott-ISAK atorvastatin 40 mg PO BEDTIME 90 days buspirone 5 mg PO BID cyclobenzaprine 10 mg PO BEDTIME PRN 30 days gabapentin 300 mg PO BEDTIME hydrocortisone 2.5% (Proctosol HC) 1 appl [place] BID-QID PRN nabumetone 500 mg PO BID 30 days sertraline 50 mg PO DAILY umeclidinium-vilanterol 62.5-25 mcg/actuation (Anoro Ellipta) 1 inh inhalation DAILY HPI Comments Details: Levar is a 44-year-old male patient of Dr. Gumzan. He has a past medical history of dyslipidemia, fatty liver, lung nodule, elevated liver enzymes, chronic left ear pain, and depression. He presents to the office today as a new patient for microscopic hematuria in the setting of nicotine dependence. In discussion with the patient today reports having followed up with his PCP at which time microscopic hematuria was noted and recommendations were made for urology referral for further assessment evaluation. In review of patient's chart it does appear patient has recently had a CT urogram and these results w ere reviewed and communicated with the patient today. Bilateral kidneys with no hydronephrosis or nephrolithiasis. There is an 8 mm exophytic heterogeneous prominently fat density lesion in the upper pole of the left kidney. Consider a cortical irregularity defect verses less likely angiolipoma per radiology report. The bladder is fluid-filled nearly collapsed. When asked he does report a a 25 +year smoking history of approximately 1-1/2-2 packs of cigarettes per day. He denies any bothersome urinary issues. He denies urinary urgency, urinary frequency, incontinence, nocturia, gross/visible hematuria, dysuria, foul smelling urine, changes to urinary stream, flank pain, fever, and or chills. He is happy with his current voiding parameters. We did discussed at length potential causes of microscopic hematuria. I discussed reasons for blood in the urine may include but are not limited to kidney stones, cancer in the urinary tract, BPH, kidney stone disease or inflammatory conditions of the urinary tract. I have discussed workup to include cystoscopy evaluation. In review of patient's chart it appears PSA 11/26 0.4. He otherwise offers no other issues or concerns at this time. [facility] Medical History Dyslipidemia Fatty liver Lung nodule Elevated liver enzymes Chronic left ear pain Thrombosed external hemorrhoid Depression Surgical History History of back surgery Social History Housing: House Are you a primary respiratory care program director to a significant other at home: No Do you presently have visiting nurse or other home services: No Patient Tobacco Use Status: Current everyday Tobacco user Tobacco use type: Cigarette Cigarette Packs Per Day: 2 Cigarettes Per Day: 40.0 Years Smoked: started around age 16, 1PPD e-Cigarette/Vaping Use: Never Used Second Hand Smoke Exposure: Yes service: No Current occupational status: employed Current occupation: [employer] Current occupational exposures/hazards: No Cognitive needs: No Hearing needs: No Vision needs: No Review of Systems Const All systems reviewed & are unremarkable except as noted in HPI and below Physical Exam Const General: cooperative, healthy appearing, comfortable, no acute distress, well developed, alert and awake Orientation/consciousness: patient oriented x3 Limitations: no limitations HEENT Head: Yes normal to inspection, Yes normocephalic and Yes atraumatic Ears: hearing grossly normal bilaterally Eyes General: appearance normal, both eyes and all related structures Neck Neck: Yes normal visual inspection and Yes trachea midline Chest Chest palpation & inspection: normal inspection of the chest Resp Effort & Inspection: normal respiratory effort and able to speak in complete sentences Cardio Rate: regular rate GI Inspection: Yes normal to inspection General: Yes no CVA tenderness Back/Spine/Pelvis Back: no CVA tenderness Skin General skin exam: no rashes or lesions noted Neuro General: patient oriented x3 Extrem General: Yes normal to inspection Psych Appearance: grossly normal and well kempt Mental Status: mental status grossly normal Speech and movement: Normal speech and movement present and Clear speech present Affect: normal affect Attitude: cooperative Thought process: Normal thought process present Thought content: Normal thought content present Insight: Fair insight present (Psych) Judgement: Fair judgement present (Psych) Results Reviewed Results Reviewed: Date of Service: 11/28/24 Procedure(s): CT abdomen pelvis wo/w IV con FINDINGS: LUNG BASES: No acute airspace disease or gross pulmonary nodules in the included lung bases. LIVER, GALLBLADDER, AND BILIARY TREE: Liver measures 16 cm. The dome is excluded from the [id number]. The portal veins, intrahepatic portion of the IVC and included hepatic veins are patent. No pericholecystic fluid collection or gallbladder wall thickening. No intrahepatic or extrahepatic biliary ductal dilatation. PANCREAS: No focal lesion. No peripancreatic fluid collection. No main pancreatic ductal dilatation. SPLEEN: 10 cm. No focal lesion. ADRENAL GLANDS: No nodular lesions. KIDNEYS AND URETERS: Right kidney: No hydronephrosis. No nephrolithiasis. Normal urinary excretion into the collecting system/ureter. No gross mass. Left kidney: No hydronephrosis. No nephrolithiasis. Normal urinary excretion into the collecting system/ureter. There is an 8 mm exophytic heterogeneous predominantly fat density lesion in the posterior upper pole midportion.. BLADDER: Fluid-filled nearly collapsed. GASTROINTESTINAL TRACT: Abundant stool, large intestine. No intestinal obstruction pattern. No pneumatosis intestinalis. Appendix is normal. No gross intestinal wall thickening. No ascites. No pneumoperitoneum. ABDOMINAL WALL: Small fat-containing umbilical hernia. LYMPH NODES: Nonspecific mildly prominent mesenteric and retroperitoneum. VASCULAR: Calcified plaques without aneurysm or dissection, abdominal aorta. PELVIC VISCERA: No gross masses. OSSEOUS STRUCTURES: Status post posterior L5-S1 fusion and arthrodesis with intervertebral disc spacer placement at L5-S1. No acute fracture. Grade 1 retrolisthesis L4-5. Degenerative changes in the hips. No acute fracture or dislocation in either hip. IMPRESSION: No hydronephrosis or nephrolithiasis. 8 mm exophytic hyperdensity posterior midportion left kidney consider a cortical irregularity defect versus less likely angiomyolipoma. Assessment & Plan Assessment & Plan (1) Microscopic hematuria: Code(s): R31.29 - Other microscopic hematuria Category: Medical (2) Nicotine dependence: Code(s): F17.200 - Nicotine dependence, unspecified, uncomplicated Category: Medical (3) Renal lesion: Code(s): N28.9 - Disorder of kidney and ureter, unspecified Category: Medical Plan In office urinalysis results reviewed with the patient today; as noted above; will send for urine cytology. Recent CT results were reviewed with the patient today; as noted above. We discussed potential causes of microscopic hematuria as well as further workup to include cystoscopy; risks and benefits were discussed; patient would like to think about this. We also discussed angiolipoma He currently denies any bothersome urinary issues. He reports be happy with current voiding parameters. Information provided regarding smoking cessation and we discussed the importance of limiting/quitting nicotine dependence for overall health and well-being. Information provided regarding cystoscopy. Follow-up in 3 months; or sooner with any issues, concerns, and or questions. Patient Instructions: The patient had an opportunity to ask questions regarding the treatment plan. All questions were answered. Physical exam, labs, and imaging were discussed and reviewed in detail. As well as risks, benefits, and discussion of treatment choices. No major barriers to understanding were identified. The patient expressed understanding and agreement with the above treatment plan. The patient was made aware they should contact our office by phone for worsening of their current condition, the appearance of new symptoms, or with any questions or concerns. Compliance is encouraged with any medications and follow up testing that is ordered. It is a privilege to be allowed the opportunity to participate in? your urological care.? Again, if you have any questions or concerns If you have any questions or concerns please do not hesitate to contact me. The office is [phone]. This note is constructed using voice recognition software. While every effort has been made to ensure accuracy caser in errors may have been included. Yours sincerely, CLEO Elliott Coding Level of Care Code New Pt Level 3 (38375) Diagnoses Microscopic hematuria R31.29 Nicotine dependence F17.200 Renal lesion N28.9
--- OUTSIDE RECORDS SUMMARY | 2025-01-15 13:46 | XMS_ITS | Clinical Summary ---
Author Organization [facility] ity Address [address] [place] [address] Care Team Providers Care Enrobing Machine Corder Name Role Phone Unavailable Primary Care Provider [...] (2023-2 5 season) 2024 Influenza Vaccine (#1) 2025 HIB Vaccines Aged Out No longer [...] 5 Years) and At-Risk Patients (6 to 49 Years) Aged Out No longer eligible b ased on patient's age to complete this topic RSV Immunization Patients Un [place] 20 months Aged Out No longer eligible b ased on patient's age to complete this topic Varicella Vaccines Aged Out No longer eligible based on patient's age to complete this topic
--- OUTSIDE RECORDS SUMMARY | 2025-01-15 13:46 | XMS_ITS | Data Portability ---
Author Organization [place] - [facility], Allergy Address [address] [address] Care Team Providers Care Food Writer Name Role Phone CHRISSYEMILY PINK Primary Care Provider Assessment Encounter Date Assessment [...] %-0.1 % eye drops,susp ension 2024 025 [facility]acy #[id number], [address], [place], [address], 5 14:29:04 Patient TargetsNo targets recorded. Patient InstructionsNo instructions recorded. Reason for Referral None Reported. Problems Name Problem SNOMED Code Status Onset Date Resolution Date Notes Provider Name and Address Organization Details Recorded Time Sensorine ural hearing loss of bilateral ears 406750976 Active 2022 Sensorineu ral hearing loss, bilateral; Note: Date Diagnosed: 07/27/2022 3:01 PM (H90.3) Not Available [facility] 4 03:19:02 Itching of skin 983421137 Active 2022 Pruritus, unspecifie d; Note: Date Diagnosed: 08/03/2022 12:44 PM (L29.9) Not Available [facility] 4 03:19:03 Granulati ons on tympanic membrane 649224923 Active 2024 ANGIE LAWSON PA-C [address] [place] [address], [place], [address] , [place] - [facility] 5 14:28:05 Problem Notes None recorded. [...] topical solution 2022 active Medicatio n ID: [id number] Du ration Value: 14 Brand Name: clotrimaz ole Send Method: E-Prescri bed Subs Allowed: subs OK Specia l Instructi on: 4 drops to affected ear two times a day X 14 days [facility] ericName: clotrimaz ole Not Available Not [...] DIRECTED BY [facility]OENT [facility]OLOGY DEPARTMEN T AT [facility] active Not Available Not Available No t Available Anoro Ellipta 62.5 mcg-25 mcg/actuat ion powder for inhalation INHALE 1 PUFF DAILY active Not Available Not Available No t Available Vitals Date Recorded Body height Body mass index (BMI) Body weight Provider Name and Address Organization Details Last Updated DateTime 07/20/2024 172.72 cm 28.9 kg/m2 25103.55 g Codi Green [place] - [facility] 07/20/2024 09:25:48 Social History None recorded. Functional Status None recorded. Mental Status None recorded. Family History Nothing Reported. Medical History No medical history recorded. Past Encounters Encounter ID Performer Location Encounter Start Date Encounter Closed Date Diagnosis/Indication Diagnosis SNOMED-CT Code Diagnosis ICD10 Code Diagnosis Note [id number] ANGIE LAWSON PA-C [facility] [address] [address] 07/07/2024 13:49:21 07/07/2024 15:13:10 Itching of skin 706528637 L29.9 Sensorineu ral hearing loss of bilateral ears 074483025 H90.3 Granulatio ns on tympanic membrane 950444092 H73.899 left [id number] ANGIE LAWSON PA-C [facility] [address] [address] 07/20/2024 09:14:26 07/20/2024 09:36:26 Granulations on tympanic membrane 801240322 H73.899 left Health Concerns Section Related Observation LastModified by Organization Detai ls LastModified Time None Recorded Concern Status LastModified by Organization Details LastModified Time None Recorded Advance Directives Directive None Recorded Payers Insurance Date Sequence Insurance Name Policy Number Policy Crockett Covered Member ID Crockett Member ID Guarantor Name 07/20/2024 1 [facility] - DOS ON OR AFTER 2022 - ONE CARE (MEDICARE REPLACEMENT/ADV ANTAGE - HMO) Rest Arifi [id number] Reshat Arifi Notes Date Note Type Note [...] eczema or psoriasis. Smoker. NIDIA OCHOA MD [address] [place] [address], [phone], [facility] 07/08/2024 08:25:39 07/20/2024 text/html 44-year-old male presents for reevaluation of the ears. He reports symptoms resolved with topical TobraDex. Hearing is at baseline. No new concerns. TYLOR MAHONEY MD [address] [place] [address],[address], [address], [facility] - [facility] 07/20/2024 17:14:21
== END 2025-01-15 13:49 | disposition home or self-care (01) ==
LOC: HO.HUSH 12:50
PROVIDERS: PCP Nurse Practitioner Family; Visit Provider Nurse Practitioner Family
DX: R31.29 Other microscopic hematuria (principal); F17.200 Nicotine dependence, unspecified, uncomplicated; N28.9 Disorder of kidney and ureter, unspecified; Z13.9 Encounter for screening, unspecified
CPT/HCPCS: 99203

== ENCOUNTER 2025-03-07 10:04 | Outpatient (AMB) | payer OTHER, SELFPAY ==
--- NOTE | 2025-03-07 10:17 | A.OFFVIS_ITS ---
Vital Signs 03/07/25 10:36 Height 5 ft 8 in Weight 188 lb 4.396 oz BMI 28.6 BP 80/50 L Blood Pressure Location Lt brachial Position Sitting Intake Visit Reasons: Fatty liver mgmt. S/P [place]. Discuss imaging Intake Note: Patient is seen in office for follow up visit, follwoing for mgmt of fatty liver and post colonoscopy. 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 S/P [place]. Discuss imaging: Details: LAST VISIT Screening for colon cancer Fatty liver Plan Patient denies any GI, cardiac or respiratory symptoms.? Denies any issues with anesthesia in the past.? Denies any history of sleep apnea.? No history infectious diseases in the past or present.? Not on any anticoagulation therapy.? No family or personal history of colon cancer or polyps.? Patient denies melena, hematochezia, unintentional weight loss or ribbon like stools.? On previous ultrasound of abdomen patient was found to have a increase echogenicity most likely nonalcoholic fatty liver. Patient reports that he does not drink alcohol. Patient had normal liver enzymes. Next visit we will send patient for repeat ultrasound. Will check liver fibrosis panel. Discussed at length the pre-procedure,? prep, diet & medications as well as what to expect prior, during and after the procedure.?? Stressed the importance of good bowel prep.? Recommended the use of Vaseline or Calmoseptine OTC & baby wipes with bowel movements to promote comfort.? ?Patient verbalizes understanding and agrees to plan of care.? He was given the opportunity to ask questions and all questions answered.? We will see him after the procedure.? New bisacodyl (Dulcolax (bisacodyl)) take 4 tabs at noon the day before your colonoscopy 20 mg (4 x 5 mg) PO ONCE 1 day 4 tabs 0RF Z12.11 polyethylene glycol 3350 (Miralax) As directed by gastroenterology department at [facility] 238 grams PO ONCE 238 grams 0RF Z12.11 COLONOSCOPY Findings: Terminal Ileum-normal Cecum: x 2 sessile polyps 10 mm lifted with eleview and removed with cold snare Ascending Colon: normal Transverse Colon -normal Descending Colon: x 7 sessile polyps removed with cold snare, x 2 were lifted with eleveiw, ranging from 6-9 mm in length Sigmoid Colon: mild diverticulosis, x 3 sessile polyps 6-8 mm removed with cold snare Rectum: Retroflexion with small internal hemorrhoids seen, grade I with skin tags, x1 sessile polyp 7-9 mm removed with cold snare and x1 sessile polyp 4-5 mm removed with cold forceps Anorectum - normal Intervention: cold snare, eleview injection, cold forceps Colon preparation: [facility] Bowel Preparation Scale Right colon; 2 Transverse colon: 2 Left colon; 2 (0 = Unprepared colon segment with mucosa not seen due to solid stool that cannot be cleared. 1 = Portion of mucosa of the colon segment seen, but other areas of the colon segment not well seen due to staining, residual stool and/or opaque liquid. 2 = Minor amount of residual staining, small fragments of stool and/or opaque liquid, but mucosa of colon segment seen well. 3 = Entire mucosa of colon segment seen well with no residual staining, small fragments of stool or opaque liquid) Impression and Post Procedure Diagnosis: diverticulosis colon polyps x 16 internal hemorrhoids Plan: High fiber diet leaflet Avoid straining at stool, epsom salts and sitz bath, anusol supps or cream Repeat Colonoscopy in 6-12 months or earlier if clinically indicated PATHOLOGY RESULTS Diagnosis A. Cecum, polypectomies: Fragments of tubular adenomata; negative for high-grade dysplasia or carcinoma. B. Colon, descending, polypectomies: - Fragments of tubular adenoma(ta); negative for high-grade dysplasia or carcinoma. - Hyperplastic mucosal polyp(s). C. Colon, sigmoid, polypectomies: Tubular adenomata (3); negative for high-grade dysplasia or carcinoma. D. Rectum, polypectomies: - Tubular adenoma; negative for high-grade dysplasia or carcinoma. - Hyperplastic mucosal polyp TODAY'S VISIT Patient is here today for follow-up. Patient reports no ill effects from the prep, anesthesia or procedure itself. Patient just had colonoscopy done and multiple polyps found. Provider recommended genetic testing. Patient denies having any family history of CRC tubular adenomas with hyperplastic polyps found. Patient denies any GI concerning symptoms. Reports to be doing well. Denies melena, hematochezia, unintentional weight loss or ribbon like stools. Patient was told that he has a fatty liver and would like to know what he can do about this. His enzymes were normal back in November of this year. Patient denies any abdominal pain or discomfort. Patient denies any dyspepsia, dysphagia or odynophagia. Laboratory Tests 11/08/24 11:25 Total Bilirubin 1.1 H AST 26 ALT 33 Alkaline Phosphatase 101 PFSH Medical History (Updated 03/24/25 @ 20:16 by Fe Borjas [facility]) Tubular adenoma of colon Dyslipidemia Fatty liver Lung nodule Elevated liver enzymes Chronic left ear pain Thrombosed external hemorrhoid Depression Surgical History History of back surgery Social History Housing: House Are you a primary overnight caregiver to a significant other at home: No Do you presently have visiting nurse or other home services: No Patient Tobacco Use Status: Current everyday Tobacco user Tobacco use type: Cigarette Cigarette Packs Per Day: 2 Cigarettes Per Day: 40.0 Years Smoked: started around age 16, 1PPD e-Cigarette/Vaping Use: Never Used Second Hand Smoke Exposure: Yes service: No Current occupational status: employed Current occupation: [employer] Current occupational exposures/hazards: No Cognitive needs: No Hearing needs: No Vision needs: No Physical Exam Vital Signs: Last Vital Signs BP 80/50 L 03/07/25 10:36 BMI result Body Mass Index 28.6 Assessment & Plan Assessment & Plan (1) Screening for colon cancer: Code(s): Z12.11 - Encounter for screening for malignant neoplasm of colon Category: Medical (2) Thrombosed external hemorrhoid: Code(s): K64.5 - Perianal venous thrombosis Category: Medical (3) Tubular adenoma of colon: Code(s): D12.6 - Benign neoplasm of colon, unspecified Category: Medical Plan Will send patient for ultrasound with elastography and will repeat liver panel. Patient had normal enzymes and CT scan did not show hepatomegaly or increased echogenicity. Patient had multiple polyps most of the more tubular adenomas and we will do genetic testing in the office today with NOELLE Mixon. Will report results to patient when we receive them. Patient will repeat colonoscopy in 6 months. We discussed the prep again and how important it is to follow clear liquid diet day before as well as do the prep correctly. Patient denies any issues with anesthesia. Denies any history of sleep apnea. Not on any anticoagulation medication. We will see him after the procedure, sooner on as needed basis. Patient is agreeable to this plan and verbalizes understanding of instructions. He was given the opportunity to ask questions and all questions answered. Thank you for allowing me to participate in his care Orders: Orders US abdomen comp w elastography 03/07/25 R79.89 - Other specified abnormal findings of blood chemistry Liver Panel 03/07/25 R74.01 - Elevation of levels of liver transaminase levels Medications: New polyethylene glycol 3350 (Miralax) As directed by gastroenterology department at [facility] 238 grams PO ONCE 238 grams 0RF Z12.11 - Encounter for screening for malignant neoplasm of colon bisacodyl (Dulcolax (bisacodyl)) take 4 tabs at noon the day before your colonoscopy 20 mg (4 x 5 mg) PO ONCE 4 tabs 0RF constipation 1 day Z12.11 - Encounter for screening for malignant neoplasm of colon Coding Level of Care Code Est Pt Level 4 (96663) Diagnoses Screening for colon cancer Z12.11 Thrombosed external hemorrhoid K64.5 Tubular adenoma of colon D12.6 Time Spent (min) 35 Comment 25 minutes spent with patient and additional 10 minutes spent reviewing his records
[2025-03-07 10:36] VITALS: BP 80/50; BMI 28.6
--- OUTSIDE RECORDS SUMMARY | 2025-03-07 11:35 | XMS_ITS | Clinical Summary ---
Author Organization [facility] ity Address [address] [place] [address] Care Team Providers Care Glove Turner And Former Automatic Name Role Phone Unavailable Primary Care Provider [...] 1997 COVID-19 Vaccine (2023-2 5 season) 2024 Depression Screening 07/05/2024 Influenza Vaccine (#1) 2025 HIB Vaccines Aged [...]
== END 2025-03-07 12:05 | disposition home or self-care (01) ==
LOC: HO.HGI 10:05
PROVIDERS: PCP Nurse Practitioner Family; Visit Provider Nurse Practitioner Family
DX: K64.5 Perianal venous thrombosis (principal); D12.0 Benign neoplasm of cecum; D12.4 Benign neoplasm of descending colon; D12.5 Benign neoplasm of sigmoid colon; D12.8 Benign neoplasm of rectum; K57.30 Diverticulosis of large intestine without perforation or abscess without bleeding; K64.0 First degree hemorrhoids; K64.4 Residual hemorrhoidal skin tags
CPT/HCPCS: 99214

== ENCOUNTER 2025-03-07 10:04 | Outpatient (REF) | payer OTHER, SELFPAY ==
[2025-03-07 12:42] LABS: Alanine Aminotransferase 26 U/L (0-40); Albumin Level 4.8 g/dL (3.5-5.0); Alkaline Phosphatase 97 U/L (39-117); Aspartate Amino Transferase 21 U/L (5-37); Total Protein 7.4 g/dL (6.5-8.0)
== END 2025-03-07 10:05 | disposition home or self-care (01) ==
LOC: HO.LAB 10:04
PROVIDERS: PCP Nurse Practitioner Family; Visit Provider Nurse Practitioner Family
DX: R74.01 Elevation of levels of liver transaminase levels (principal); R79.89 Other specified abnormal findings of blood chemistry; Z12.11 Encounter for screening for malignant neoplasm of colon; D12.6 Benign neoplasm of colon, unspecified; K64.5 Perianal venous thrombosis
CPT/HCPCS: 36415; 80076; 99212

== ENCOUNTER 2025-03-26 12:07 | Outpatient (AMB) | payer OTHER, SELFPAY ==
--- NOTE | 2025-03-26 12:08 | A.OFFVIS_ITS ---
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 Required: No Allergies aspirin Allergy (Unknown, Verified 03/26/25 21:25) Unknown Medication List - Last Reconciled 03/26/25 by MATT Elliott-ISAK atorvastatin 40 mg PO BEDTIME 90 days bisacodyl (Dulcolax (bisacodyl)) 20 mg (4 x 5 mg) PO ONCE 1 day buspirone 5 mg PO BID cyclobenzaprine 10 mg PO BEDTIME PRN 30 days gabapentin 300 mg PO BEDTIME hydrocortisone 2.5% (Proctosol HC) 1 appl [place] BID-QID PRN nabumetone 500 mg PO BID 30 days polyethylene glycol 3350 (Miralax) 238 grams PO ONCE sertraline 50 mg PO DAILY umeclidinium-vilanterol 62.5-25 mcg/actuation (Anoro Ellipta) 1 inh inhalation DAILY HPI Comments Details: Levar is a 45-year-old male patient of Dr. Guzman. He has a past medical history of dyslipidemia, fatty liver, lung nodule, elevated liver enzymes, chronic left ear pain, and depression. He is being followed up on today via video telehealth for his microscopic hematuria in the setting of nicotine dependence. In discussion with the patient today reports to be doing and feeling well. We did discuss previous urine cytology results: 07/27: Atypical urothelial cells, 11/26 Negative for high-grade urothelial carcinoma, 11/26 Atypical urothelial cells, 01/26 Negative for high-grade urothelial carcinoma. Previous workup has also included a CT urogram 11/26 noting bilateral kidneys with no hydronephrosis or nephrolithiasis. There is an 8 mm exophytic heterogeneous prominently fat density lesion in the upper pole of the left kidney. Consider a cortical irregularity defect verses less likely angiolipoma per radiology report. The bladder is fluid-filled nearly collapsed. When asked he does report a a 25 +year smoking history of approximately 1-1/2-2 packs of cigarettes per day. He denies any bothersome urinary issues. He denies urinary urgency, urinary frequency, incontinence, nocturia, gross/visible hematuria, dysuria, foul smelling urine, changes to urinary stream, flank pain, fever, and or chills. He is happy with his current voiding parameters. We did discussed at length potential causes of microscopic hematuria as well as abnormal urine cytologies. I discussed reasons for blood in the urine may include but are not limited to kidney stones, cancer in the urinary tract, BPH, kidney stone disease or inflammatory conditions of the urinary tract. I have discussed workup to include cystoscopy evaluation. In review of patient's chart it appears PSA 11/26 0.4. He otherwise offers no other issues or concerns at this time. [facility] Medical History (Updated 03/26/25 @ 12:29 by Bronwyn Prater [facility]) Tubular adenoma of colon Dyslipidemia Fatty liver Lung nodule Elevated liver enzymes Chronic left ear pain Thrombosed external hemorrhoid Depression Surgical History History of back surgery Social History Housing: House Are you a primary healthcare science specialist to a significant other at home: No Do you presently have visiting nurse or other home services: No Patient Tobacco Use Status: Current everyday Tobacco user Tobacco use type: Cigarette Cigarette Packs Per Day: 2 Cigarettes Per Day: 40.0 Years Smoked: started around age 16, 1PPD e-Cigarette/Vaping Use: Never Used Second Hand Smoke Exposure: Yes service: No Current occupational status: employed Current occupation: [email or web address] Current occupational exposures/hazards: No Cognitive needs: No Hearing needs: No Vision needs: No Review of Systems Const All systems reviewed & are unremarkable except as noted in HPI and below Physical Exam Const General: cooperative Orientation/consciousness: patient oriented x3 Resp Effort & Inspection: able to speak in complete sentences Neuro General: patient oriented x3 Psych Speech and movement: Clear speech present Attitude: cooperative Thought content: Normal thought content present Insight: Fair insight present (Psych) Judgement: Fair judgement present (Psych) Telehealth Telehealth Telehealth Platform: Telephone Location of provider rendering services: practice address Location of patient: address on file Patient Identification confirmed using: Name, : Yes Telehealth method: video Patient verbally consented to treatment: Yes Patient verbally consented to billing insurance company: Yes Patient informed of any privacy concerns related to visit: Yes Minutes spent on Phone/Video with Pt.: 20 Assessment & Plan Assessment & Plan (1) Nicotine dependence: Code(s): F17.200 - Nicotine dependence, unspecified, uncomplicated Category: Medical (2) Microscopic hematuria: Code(s): R31.29 - Other microscopic hematuria Category: Medical (3) Hematuria: Code(s): R31.9 - Hematuria, unspecified Category: Medical Qualifiers: Hematuria type: other microscopic Qualified Code(s): R31.29 - Other microscopic hematuria (4) Abnormal cytology: Code(s): R89.6 - Abnormal cytological findings in specimens from other organs, systems and tissues Category: Medical Plan: Risks, benefits and alternatives to therapy were discussed. These include but are not limited to infection, bleeding, damage to local organs and tissues, need for further interventions. ? Anesthetic risks regarding cardiac arrhythmia, blood clots, and potential mortality were discussed. The patient understands the typical recovery time and the outpatient nature of the procedure. After consideration of these risks the patient gives full informed consent and they wish to move ahead with the procedure. Plan Previous urine cytology results reviewed with the patient today; as noted above. We did discuss potential causes of microscopic hematuria in the setting of nicotine dependence We discussed surveillance monitoring verses cystoscopy; risks and benefits of these interventions were discussed. He would like to undergo cystoscopy however under sedation. He otherwise denies any bothersome urinary issues. He reports be happy with current voiding parameters. All questions were answered. Will schedule for cystoscopy under sedation Follow-up per doctor's orders; or sooner with any issues, concerns Patient Instructions: The patient had an opportunity to ask questions regarding the treatment plan. All questions were answered. Physical exam, labs, and imaging were discussed and reviewed in detail. As well as risks, benefits, and discussion of treatment choices. No major barriers to understanding were identified. The patient expressed understanding and agreement with the above treatment plan. The patient was made aware they should contact our office by phone for worsening of their current condition, the appearance of new symptoms, or with any questions or concerns. Compliance is encouraged with any medications and follow up testing that is ordered. It is a privilege to be allowed the opportunity to participate in? your urological care.? Again, if you have any questions or concerns If you have any questions or concerns please do not hesitate to contact me. The office is [phone]. This note is constructed using voice recognition software. While every effort has been made to ensure accuracy armament aircraft mechanic errors may have been included. Yours sincerely, Bronwyn Prater, NEUROPSYCHOLOGY DIRECTOR-BC Coding Level of Care Code Tele Est Pt Level 4 (63944) Diagnoses Nicotine dependence F17.200 Microscopic hematuria R31.29 Other microscopic hematuria R31.29 Hematuria type: other microscopic Abnormal cytology R89.6
== END 2025-03-26 12:42 | disposition home or self-care (01) ==
LOC: HO.HUSH 12:07
PROVIDERS: PCP Nurse Practitioner Family; Visit Provider Nurse Practitioner Family
DX: R31.29 Other microscopic hematuria (principal); R89.6 Abnormal cytological findings in specimens from other organs, systems and tissues; F17.200 Nicotine dependence, unspecified, uncomplicated
CPT/HCPCS: 99214

== ENCOUNTER 2025-05-09 11:32 | Outpatient (AMB) | payer OTHER, SELFPAY ==
[2025-05-09 11:48] VITALS: BP 118/80; PULSE 64; RESP 16; TEMP 36.7; O2SAT 97; BMI 29.0
--- NOTE | 2025-05-09 11:48 | MHC.PC.OV ---
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 History of Present Illness The patient is a 45-year-old male presenting for a follow-up appointment for dyslipidemia. He is currently on a statin. The patient has a history of microscopic hematuria and has been evaluated by urology. He is due for a cystoscopy but has been reluctant to schedule it. He also has a history of multiple lung nodules and was scheduled for a follow-up CT scan six months after his last one, which was ordered by his director sales and trade marketing, but this was not completed. The patient continues to smoke heavily. Social History - Tobacco Use: The patient continues to smoke heavily. Health Maintenance - The patient is due for a cystoscopy for microscopic hematuria. - The patient requires a follow-up CAT scan for multiple lung nodules, which was supposed to be done six months after his last one. Review of Systems - Constitutional: Denies fevers, chills, and weight loss. - Genitourinary: Denies gross hematuria. Physical Exam General: Cooperative, healthy appearing, comfortable, no acute distress and well developed Orientation: Patient oriented x3 Limitations: No limitations Head: Normal to inspection Ears: Hearing grossly normal bilaterally Nose: Normal external nose present Face and sinus: Normal facial exam Eyes: Appearance normal, both eyes and all related structures Neck: Normal visual inspection and Yes full ROM Respiratory: Normal respiratory effort and able to speak in complete sentences. Clear/dim to auscultation bilaterally Cardiovascular: Regular rate and rhythm. Normal S1 and S2 GI: Normal to inspection. Soft to palpation and nontender Skin: No rashes or lesions noted Neuro: Patient oriented x3 Extremities: Normal to inspection Results Plan 1. Dyslipidemia The patient will undergo further lab testing. He will continue his current statin medication. 2. Tobacco Use Disorder The patient's heavy smoking was noted. The importance of follow-up for his smoking-related health risks, including hematuria and lung nodules, was reinforced. 3. Microscopic Hematuria The patient has been evaluated by urology and is due for a cystoscopy, though he has been reluctant. The importance of this procedure was reinforced, and the patient was instructed to call the urology office to schedule it. 4. Multiple Pulmonary Nodules The patient has failed to complete a recommended follow-up CT scan six months after his last one. A new order for the CT scan was placed, and the importance of completing this scan was reinforced. Discussion Notes I reinforced the importance of proceeding with the cystoscopy for his microscopic hematuria, as the patient had been reluctant. I instructed him to call the urology office to schedule this TRA I also discussed the overdue follow-up CAT scan for his multiple lung nodules. I placed a new order for this scan and again stressed the importance of getting it done, instructing him to call and schedule the appointment. Patient Instructions - Go to the lab to have blood work drawn. - You must call the urology office to schedule your cystoscopy. This is an important procedure to check for the cause of blood in your urine. - It is very important that you get your follow-up CAT scan of the chest. Please call to schedule this appointment. - Continue taking your statin medication as prescribed. [facility] Medical History Tubular adenoma of colon Dyslipidemia Fatty liver Lung nodule Elevated liver enzymes Chronic left ear pain Thrombosed external hemorrhoid Depression Surgical History History of back surgery Social History Housing: House Are you a primary nursing care partner to a significant other at home: No Do you presently have visiting nurse or other home services: No Patient Tobacco Use Status: Current everyday Tobacco user Tobacco use type: Cigarette Cigarette Packs Per Day: 2 Cigarettes Per Day: 40.0 Years Smoked: started around age 16, 1PPD e-Cigarette/Vaping Use: Never Used Second Hand Smoke Exposure: Yes service: No Current occupational status: employed Current occupation: [employer] Current occupational exposures/hazards: No Cognitive needs: No Hearing needs: No Vision needs: No Questionnaire Thrive Questionnaire Date Thrive assessed: 11/08/24 I am a: Patient What is your living situation today?: I have a steady place to live Within the past 12 months, did the food you bought not last and you didn't have the money to get more?: Never true Within the past 12 months, did you worry whether your food would run out before you got money to buy more?: Never true Do you have trouble paying for medicines?: No Do you have trouble getting transportation to medical appointments?: No Do you have trouble paying your heating and electricity bill?: No Do you have trouble taking care of your child, family member or friend?: No Do you have trouble with day-to-day activities such as bathing, preparing meals, shopping, managing finances, etc.?: No Are you currently unemployed and looking for a job?: Yes Are you interested in more education?: No Please select the resources that you would like help with: None Currently or been in a relationship where the following occur: I choose not to answer THRIVE Score: 0 JOSELYN-7 AMB Questionnaire JOSELYN-7 Date JOSELYN - 7 assessed: 11/08/24 Source: Developed by Drs. Boaz Barker, Kristal aYp, Noe Rosales and colleagues, with an educational giovani from [employer]. Physical exam (Primary Care) Vital Signs: Last Vital Signs Temp 98.0 F 05/09/25 11:48 Pulse 64 05/09/25 11:48 Resp 16 05/09/25 11:48 BP 118/80 05/09/25 11:48 Pulse Ox 97 05/09/25 11:48 Oxygen Delivery Method Room Air 05/09/25 11:48 BMI result Body Mass Index 29.0 Tobacco/Smoking Status: Tobacco use Status Tobacco use date assessed 05/09/25 05/09/25 11:51 Patient Tobacco Use Status Current everyday Tobacco 05/09/25 11:51 Tobacco use type Cigarette 05/09/25 11:51 e-Cigarette/Vaping Use Never Used 05/09/25 11:51 Thrive Assessment: Date of Thrive Assessment Date Thrive assessed 11/08/24 05/09/25 11:51 Currently or been in a relationship where the following occur: I choose not to answer Coding Level of Care Code Est Pt Level 3 (37730) Diagnoses Multiple lung nodules on CT R91.8 Incidental lung nodule, greater than or equal to 8mm R91.1 Dyslipidemia E78.5 Microscopic hematuria R31.29 Smoker F17.200 Assessment & Plan Assessment & Plan (1) Multiple lung nodules on CT: Code(s): R91.8 - Other nonspecific abnormal finding of lung field Category: Surgical (2) Incidental lung nodule, greater than or equal to 8mm: Code(s): R91.1 - Solitary pulmonary nodule Category: Surgical (3) Dyslipidemia: Code(s): E78.5 - Hyperlipidemia, unspecified Category: Medical (4) Microscopic hematuria: Code(s): R31.29 - Other microscopic hematuria Category: Medical (5) Smoker: Code(s): F17.200 - Nicotine dependence, unspecified, uncomplicated Category: Social Hx Plan . Orders: Orders Complete Blood Count Auto Diff Today E78.5 - Hyperlipidemia, unspecified, F17.200 - Nicotine dependence, unspecified, uncomplicated, R31.29 - Other microscopic hematuria, R91.1 - Solitary pulmonary nodule, R91.8 - Other nonspecific abnormal finding of lung field UA CC w/rflx Micro + Cult Today E78.5 - Hyperlipidemia, unspecified, F17.200 - Nicotine dependence, unspecified, uncomplicated, R31.29 - Other microscopic hematuria, R91.1 - Solitary pulmonary nodule, R91.8 - Other nonspecific abnormal finding of lung field Lipid Panel Today E78.5 - Hyperlipidemia, unspecified, F17.200 - Nicotine dependence, unspecified, uncomplicated, R31.29 - Other microscopic hematuria, R91.1 - Solitary pulmonary nodule, R91.8 - Other nonspecific abnormal finding of lung field CT chest wo IV con Today R91.1 - Solitary pulmonary nodule, R91.8 - Other nonspecific abnormal finding of lung field Comprehensive [place]. Panel Fast Today E78.5 - Hyperlipidemia, unspecified, F17.200 - Nicotine dependence, unspecified, uncomplicated, R31.29 - Other microscopic hematuria, R91.1 - Solitary pulmonary nodule, R91.8 - Other nonspecific abnormal finding of lung field TSH reflex Free T4 Today E78.5 - Hyperlipidemia, unspecified, F17.200 - Nicotine dependence, unspecified, uncomplicated, R31.29 - Other microscopic hematuria, R91.1 - Solitary pulmonary nodule, R91.8 - Other nonspecific abnormal finding of lung field
--- OUTSIDE RECORDS SUMMARY | 2025-05-09 14:13 | XMS_ITS | Data Portability ---
Author Organization [place] - [facility], Allergy Address [address] [address] Care Team Providers Care Right Of Way Agent Name Role Phone CHRISSYEMILY PINK Primary Care Provider [phone] Assessment Encounter Date Assessment Date Assessment LastModified [...] %-0.1 % eye drops,susp ension 2024 025 [facility][id number], [address] [facility], [place], [address], 5 14:29:04 Patient TargetsNo targets recorded. Patient InstructionsNo instructions recorded. Reason for Referral None Reported. 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 685020138 Active 2024 ANGIE LAWSON PA-C [address] [place] [address], [place], [address] , [place] - [facility] 5 14:28:05 Problem Notes None [...] topical solution 2022 active Medicatio n ID: [id number] Du ration Value: 14 Brand Name: clotrimaz ole Send Method: E-Prescri bed Subs Allowed: subs OK Specia l Instructi on: 4 drops to affected ear two times a day X 14 days [facility] ericName: clotrimaz ole Not Available Not [...] DIRECTED BY GASTROENT EROLOGY DEPARTMEN T AT [facility] active Not Available Not Available No t Available Anoro Ellipta 62.5 mcg-25 mcg/actuat ion powder for inhalation INHALE 1 PUFF DAILY active Not Available Not Available No t Available Vitals Date Recorded Body height Body mass index (BMI) Body weight Provider Name and Address Organization Details Last Updated DateTime 07/20/2024 172.72 cm 28.9 kg/m2 81242.55 g Codi Green [place] - [facility] 07/20/2024 09:25:48 Social History None recorded. Functional Status None recorded. Mental Status None recorded. Family History Nothing Reported. Medical History No medical history recorded. Past Encounters Encounter ID Performer Location Encounter Start Date Encounter Closed Date Diagnosis/Indication Diagnosis SNOMED-CT Code Diagnosis ICD10 Code Diagnosis IMO Codes Diagnosis Note [id number] ANGIE LAWSON PA-C [facility] [address] [address] 07/07/2024 13:49:21 07/07/2024 15:13:10 Itching of skin 936213369 L29.9 Sensorineu ral hearing loss of bilateral ears 295023184 H90.3 Granulatio ns on tympanic membrane 675858145 H73.899 left [id number] ANGIE LAWSON PA-C [facility] [address] [address] 07/20/2024 09:14:26 07/20/2024 09:36:26 Granulations on tympanic membrane 530258506 H73.899 left Health Concerns Section Related Observation LastModified by Organization Detai ls LastModified Time None Recorded Concern Status LastModified by Organization Details LastModified Time None Recorded Advance Directives Directive None Recorded Payers Insurance Date Sequence Insurance Name Policy Number Policy Crockett Covered Member ID Crockett Member ID Guarantor Name 03/21/2025 1 [facility] - DOS ON OR AFTER 2022 - ONE CARE (MEDICARE REPLACEMENT/ADV ANTAGE - HMO) Reshat Arifi [id number] Reshat Arifi Notes Date Note Type Note Provider Name and Address Organization Details Recorded Time 07/07/2024 text/html ROS as noted in the [facility] 44-year-old male presents for evaluation of the ears. He reports left otalgia for 1 month that improved with unknown otologic drops. He reports left ear pruritus for one year. He has a history of a low-grade fungal ear infection one year ago. He denies history of eczema or psoriasis. Smoker. NIDIA OCHOA MD [address] [place] [address], [phone], [facility] 07/08/2024 08:25:39 07/20/2024 text/html ROS as noted in the [facility] 44-year-old male presents for reevaluation of the ears. He reports symptoms resolved with topical TobraDex. Hearing is at baseline. No new concerns. TYLOR MAHONEY MD [address] [place] [address], [phone], [facility] 07/20/2024 17:14:21
== END 2025-05-09 12:31 | disposition home or self-care (01) ==
LOC: HO.HMCC 11:33
PROVIDERS: PCP Nurse Practitioner Family; Visit Provider Nurse Practitioner Family
DX: R91.8 Other nonspecific abnormal finding of lung field (principal); R91.1 Solitary pulmonary nodule; E78.5 Hyperlipidemia, unspecified; R31.29 Other microscopic hematuria; F17.200 Nicotine dependence, unspecified, uncomplicated

== ENCOUNTER → 2025-05-09 11:32 | Outpatient (BNVA) | payer OTHER, SELFPAY | PROVIDERS: PCP Nurse Practitioner Family; Visit Provider Nurse Practitioner Family | DX: R91.8 Other nonspecific abnormal finding of lung field (principal); R31.29 Other microscopic hematuria; E78.5 Hyperlipidemia, unspecified; F17.210 Nicotine dependence, cigarettes, uncomplicated | CPT/HCPCS: 99212 ==

== ENCOUNTER 2025-05-22 10:50 | Day surgery (SDC) | payer OTHER, SELFPAY ==
--- OUTSIDE RECORDS SUMMARY | 2025-05-10 18:14 | XMS_ITS | Clinical Summary ---
Author Organization [facility] ity Address [address] [place] [address] Care Team Providers Care Buggy Runner Name Role Phone Unavailable Primary Care Provider [...] of 3 - 19+ 3-dose series) 1997 Depression Screening 07/05/2024 COVID-19 Vaccine (1 - 2023-2 5 season) 2025 Influenza Vaccine (#1) 2025 RSV Immunization Adult Patie nts (1 - 1-dose 75+ series) 2053 HIB Vaccines Aged Out No longer eligi [...]
--- OUTSIDE RECORDS SUMMARY | 2025-05-10 18:15 | XMS_ITS | Data Portability ---
Author Organization [place] - [facility], Allergy Address [address] [address] Care Team Providers Care Repairer Kiln Car Name Role Phone CHRISSYEMILY PINK Primary Care Provider [phone] Assessment Encounter Date Assessment Date Assessment LastModified [...] %-0.1 % eye drops,susp ension 2024 025 [facility]armacy #[id number], [address] [facility], [place], [address], 5 14:29:04 Patient TargetsNo targets recorded. Patient InstructionsNo instructions recorded. Reason for Referral None Reported. 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 5 14:28:05 Problem Notes None recorded. [...] topical solution 2022 active Medicatio n ID: [id number] Du ration Value: 14 Brand Name: clotrimaz ole Send Method: E-Prescri bed Subs Allowed: subs OK Specia l Instructi on: 4 drops to affected ear two times a day X 14 days [facility] ericName: clotrimaz ole Not Available Not [...] BY [facility]PART[facility] T AT [facility] active Not Available Not Available No t Available Anoro Ellipta 62.5 mcg-25 mcg/actuat ion powder for inhalation INHALE 1 PUFF DAILY active Not Available Not Available No t Available Vitals Date Recorded Body height Body mass index (BMI) Body weight Provider Name and Address Organization Details Last Updated DateTime 07/20/2024 172.72 cm 28.9 kg/m2 40519.55 g Codi Green [place] - [facility] 07/20/2024 09:25:48 Social History None recorded. Functional Status None recorded. Mental Status None recorded. Family History Nothing Reported. Medical History No medical history recorded. Past Encounters Encounter ID Performer Location Encounter Start Date Encounter Closed Date Diagnosis/Indication Diagnosis SNOMED-CT Code Diagnosis ICD10 Code Diagnosis IMO Codes Diagnosis Note [id number] ANGIE LAWSON PA-C [facility] [address] [address] 07/07/2024 13:49:21 07/07/2024 15:13:10 Itching of skin 093735967 L29.9 Sensorineu ral hearing loss of bilateral ears 210143164 H90.3 Granulatio ns on tympanic membrane 367598537 H73.899 left [id number] ANGIE LAWSON PA-C [facility] [address] [address] 07/20/2024 09:14:26 07/20/2024 09:36:26 Granulations on tympanic membrane 427712836 H73.899 left Health Concerns Section Related Observation LastModified by Organization Detai ls LastModified Time None Recorded Concern Status LastModified by Organization Details LastModified Time None Recorded Advance Directives Directive None Recorded Payers Insurance Date Sequence Insurance Name Policy Number Policy Crockett Covered Member ID Crockett Member ID Guarantor Name 03/21/2025 1 [facility] - DOS ON OR AFTER 2022 - ONE CARE (MEDICARE REPLACEMENT/ADV ANTAGE - HMO) Reshat Arifi [id number] Reshat Arifi Notes Date Note Type Note Provider Name and Address Organization Details Recorded Time 07/07/2024 text/html ROS as noted in the [facility] 44-year-old male presents for evaluation of the ears. He reports left otalgia for 1 month that improved with unknown otologic drops. He reports left ear pruritus for one year. He has a history of a low-grade fungal ear infection one year ago. He denies history of eczema or psoriasis. Smoker. NIDIA OCHOA MD [address] [place] [address], [phone], [facility] 07/08/2024 08:25:39 07/20/2024 text/html ROS as noted in the [facility] 44-year-old male presents for reevaluation of the ears. He reports symptoms resolved with topical TobraDex. Hearing is at baseline. No new concerns. TYLOR MAHONEY MD [address] [place] [address], [phone], [facility] 07/20/2024 17:14:21
--- NOTE | 2025-05-18 10:20 | HO.ANESPROP2 ---
Documented by User: Lynda Barajas NP 05/18/25 10:21 HPI - Anesthesia Eval Consult details Narrative: 45yo M for Cystoscopy s/p colonoscopy 12/2024 with [facility] Active Problems Active Problems: All Active Problems Abnormal cytology (Acute) Tubular adenoma of colon (Acute) Renal lesion (Acute) Nicotine dependence (Acute) Positive colorectal cancer screening using Cologuard test (Acute) Screening for prostate cancer (Acute) Chronic lower back pain (Acute) History of back surgery (Acute) Hematuria (Acute) Dyspnea on exertion (Acute) TM (tympanic membrane disorder) (Acute) Otitis externa of left ear (Acute) Incidental lung nodule, greater than or equal to 8mm (Acute) Multiple lung nodules on CT (Acute) Screening for colon cancer (Acute) Inflammatory pain (Acute) Fatty liver (Acute) Acute hemorrhoid (Acute) Smoker (Acute) Ear itching (Acute) Microscopic hematuria (Acute) Depression, major, recurrent (Acute) Physical exam (Acute) Dyslipidemia (Acute) Otitis externa (Acute) Chronic left ear pain (Acute) Thrombosed external hemorrhoid (Acute) Depression (Acute) Past Medical History Medical History Tubular adenoma of colon Dyslipidemia Fatty liver Lung nodule Elevated liver enzymes Chronic left ear pain Thrombosed external hemorrhoid Depression Family History Family history of problems with anesthesia: No Surgical History Surgical History History of back surgery History of Problems with Anesthesia: No Social History Social History Housing: House Are you a primary geriatric personal care aide to a significant other at home: No Do you presently have visiting nurse or other home services: No Patient Tobacco Use Status: Current everyday Tobacco user Tobacco use type: Cigarette Cigarette Packs Per Day: 1.5 Cigarettes Per Day: 30.0 Years Smoked: started around age 16, 1PPD e-Cigarette/Vaping Use: Never Used Second Hand Smoke Exposure: No Use of substances other than those prescribed or required for medical reasons: No Have you been hit, kicked, punched, or otherwise hurt by someone within the past year? If so, by whom?: No Are you DNR?: No Advance Directives: No Advance Directives Information Provided: Yes Advance Directives on File: No service: No Current occupational status: employed Current occupation: [employer] Current occupational exposures/hazards: No Cognitive needs: No Hearing needs: No Vision needs: No Meds Allergies Allergy/AdvReac Type Severity Reaction Status Date / Time aspirin Allergy Unknown Unknown Verified 05/09/25 11:50 Assessment and Plan Assessment Anesthesia Assessment: Chart Reviewed Final Anesthetic Review Family History of Problems with Anesthesia: No History of Problems with Anesthesia: No Documented by User: Molly Padilla MD 05/22/25 13:14 PMFSH Past Medical History Medical History Tubular adenoma of colon Dyslipidemia Fatty liver Lung nodule Elevated liver enzymes Chronic left ear pain Thrombosed external hemorrhoid Depression Surgical History Surgical History History of back surgery Social History Social History Housing: House Are you a primary geriatric personal care aide to a significant other at home: No Do you presently have visiting nurse or other home services: No Patient Tobacco Use Status: Current everyday Tobacco user Tobacco use type: Cigarette Cigarette Packs Per Day: 1.5 Cigarettes Per Day: 30.0 Years Smoked: started around age 16, 1PPD e-Cigarette/Vaping Use: Never Used Second Hand Smoke Exposure: No Use of substances other than those prescribed or required for medical reasons: No Have you been hit, kicked, punched, or otherwise hurt by someone within the past year? If so, by whom?: No Are you DNR?: No Advance Directives: No Advance Directives Information Provided: Yes Advance Directives on File: No service: No Current occupational status: employed Current occupation: [employer] Current occupational exposures/hazards: No Cognitive needs: No Hearing needs: No Vision needs: No Meds Allergies Allergy/AdvReac Type Severity Reaction Status Date / Time aspirin Allergy Unknown Unknown Verified 05/09/25 11:50 Exam Airway Mallampati Class: II TM Dist: >3cm Neck ROM: Full Heart: rrr Lungs: cta Assessment and Plan Assessment Anesthesia Assessment: Anesthesia Plan Discussed Final Anesthetic Review NPO: Yes ASA Class: II Final Preanesthetic Review: No Changes in Pt Med Stat, Meds/Allgs Chart Reviewed, Consent Obtained/Reviewed and Anes Risks/Benef Reviewed Patient Risk: Low Procedure Risk: Low Anesthetic Plan Anesthetic Plan: GA, MAC: and Agree w/ Assess. and Plan Disposition: Standard PACU
[2025-05-22] VITALS (7 sets, daily range): BP systolic 102–131; BP diastolic 64–93; PULSE 66–92; RESP 15–18; TEMP 36.1–36.4; O2SAT 94–98; BMI 28.9
[2025-05-22] MEDS: Lactated Ringers 1,000 ML 100 ML IVCONT (12:06)
--- NOTE | 2025-05-22 13:18 | MHC.SHP ---
Pre-Procedural Eval Section A - 24 Hr Update-Section A only Date of Service: 05/22/25 The patient is an INPATIENT: No The patient has been examined within 24 hours of the surgical procedure. The History & Physical has been completed within 30 days and I have reviewed it.: Yes Section B - Complete if H&P > 30 days Chief Complaint: microscopic hematuria, atypical urine cytology Allergies: Allergies Allergy/AdvReac Type Severity Reaction Status Date / Time aspirin Allergy Unknown Unknown Verified 05/09/25 11:50 Plan Diagnosis/Plan: Unchanged I have reviewed the history and physical and performed a pertinent physical examination on my patient. No changes have occurred unless specified. Cystoscopy. Bladder biopsy. Discussed risks to include but not limited to, blood in the urine, burning with urination, urgency. Time Spent With Patient Time: Total time managing care of this patient today ____ minutes.
--- NOTE | 2025-05-22 13:20 | P.OP_ITS ---
Operative Note Operative Note Date of Service: 05/22/25 Narrative: PREOP DIAGNOSIS: Microscopic hematuria, atypical cytology POSTOP DIAGNOSIS: Bladder mass PROCEDURE: Cystoscopy transurethral resection of bladder tumor, fulguration, bladder biopsies Anesthesia: General Surgeon Dr. Alicia Santacruz Findings: Bladder tumor x2 left lateral wall, largest greater than 3 cm Details of procedure: The patient was brought into the operating room placed on the OR table in supine position. Antibiotics confirmed. General anesthesia was administered. The patient was repositioned into lithotomy position, prepped and draped in the usual sterile fashion. Time-out was done per protocol. 2% urojet placed. A 22 [place] cystoscope was passed transurethrally into the bladder. Visualization of the bladder noted papillary bladder tumors left lateral wall greater than 3 cm and a smaller satellite lesion about 2-3 mm. Random bladder biopsies posterior wall right lateral wall were done with the flexible biopsy forceps. The 22 [place] cystoscope was removed. The Reyna sounds were used to dilate the meatus up to 26 [place]. The 24 [place] resectoscope was passed transurethrally into the bladder. The loop resectoscope was used to resect the bladder tumors. There was no evidence of perforation, the loop and roller ball attachment was also used to fulgurate the base of the bladder tumor. Once there was good hemostasis the resectoscope was removed. A Zapata size 18 [place]. The patient was brought out of anesthesia and taken to recovery in stable condition. Complications: None EBL: minimal (<5 mL) Drains: Zapata catheter 18 [place]
== END 2025-05-22 15:25 | disposition home or self-care (01) ==
PROVIDERS: PCP Nurse Practitioner Family; Visit Provider Urology
PROC: 0TJB8ZZ Inspection of Bladder, Via Natural or Artificial Opening Endoscopic (ICD-10-PCS; CPT 52000; principal; 2025-05-22 12:30)
DX: C67.2 Malignant neoplasm of lateral wall of bladder (principal); N30.21 Other chronic cystitis with hematuria; R74.8 Abnormal levels of other serum enzymes; K76.0 Fatty (change of) liver, not elsewhere classified; E78.5 Hyperlipidemia, unspecified; R91.1 Solitary pulmonary nodule; F32.A Depression, unspecified; Z79.51 Long term (current) use of inhaled steroids; Z79.899 Other long term (current) drug therapy; Z88.6 Allergy status to analgesic agent; F17.210 Nicotine dependence, cigarettes, uncomplicated; Z98.890 Other specified postprocedural states
CPT/HCPCS: 52235; 88305; 88307; J0690; J1171; J2003; J2250; J2704; J3010

== ENCOUNTER → 2025-05-22 10:50 | Outpatient (BNV) | payer OTHER, SELFPAY | PROVIDERS: PCP Nurse Practitioner Family; Visit Provider Urology | DX: R31.29 Other microscopic hematuria (principal); D49.4 Neoplasm of unspecified behavior of bladder | CPT/HCPCS: 52235 ==

== ENCOUNTER 2025-05-23 15:55 | Inpatient (IN) | payer OTHER, SELFPAY ==
[2025-05-23 16:20] VITALS: BP 126/56; PULSE 81; RESP 18; TEMP 36.8; O2SAT 97; BMI 29.5
--- NOTE | 2025-05-23 16:21 | ED.MALEGU ---
HPI - Male Genitourinary General Chief complaint: Urogenital-Male Stated complaint: post-op issues Time Seen by Provider: 05/23/25 17:28 Source: patient, RN notes reviewed and old records reviewed Mode of arrival: ambulatory Limitations: no limitations History of Present Illness ED Provider: Kaycee ABRAHAM Narrative: 45-year-old male presents for evaluation of blood in his urine. He had a bladder tumor removed yesterday with Dr. Santacruz The patient reports he was doing well up until 11 a.m. this morning. He noticed that the Morin catheter was draining bright red blood and now he is unable to drain anything. He has severe lower abdominal pain. He is not anticoagulated Related Data Previous Rx's ?Medication ?Instructions ?Recorded hydrocortisone 2.5 % topical cream 1 appl UT BID-QID PRN hemorrhoids 12/29/24 with perineal applicator #30 grams (Proctosol HC) nabumetone 500 mg tablet 500 mg PO BID 30 days #60 tabs 01/03/25 umeclidinium 62.5 mcg-vilanterol 1 inh inhalation DAILY #1 ea 02/05/25 25 mcg/actuation powdr for inhalation (Anoro Ellipta) sertraline 50 mg tablet 50 mg PO DAILY #90 tabs 02/08/25 bisacodyl 5 mg tablet,delayed 20 mg (4 x 5 mg) PO ONCE 03/07/25 release (Dulcolax (bisacodyl)) constipation 1 day #4 tabs polyethylene glycol 3350 17 238 g PO ONCE #238 grams 03/07/25 gram/dose oral powder (Miralax) atorvastatin 40 mg tablet 40 mg PO BEDTIME 90 days #90 tabs 03/27/25 gabapentin 300 mg capsule 300 mg PO BEDTIME #30 caps 04/30/25 buspirone 5 mg tablet 5 mg PO BID #180 tabs 05/14/25 cyclobenzaprine 10 mg tablet 10 mg PO BEDTIME PRN muscle spasm 05/22/25 30 days #30 tabs oxycodone 5 mg tablet 5 mg PO .[id number] PRN pain #10 tabs 05/22/25 phenazopyridine 99.5 mg tablet 199 mg (2 x 99.5 mg) PO BID PRN 05/22/25 (Azo Urinary Pain Relief) Urinary pain 2 days #12 tabs Allergies Allergy/AdvReac Type Severity Reaction Status Date / Time aspirin Allergy Unknown Unknown Verified 05/23/25 16:23 Review of Systems Constitutional: Constitutional: Denies body ache(s), Denies chills and Denies fever(s) Eyes: Eyes: Denies blurry vision ENT: Denies vertigo and Denies dizziness Cardiovascular: Cardiovascular: Denies chest pain, Denies chest pain at rest and Denies dyspnea on exertion Respiratory: Respiratory: Denies cough and Denies dyspnea on exertion Gastrointestinal: Gastrointestinal: Reports abdominal pain Genitourinary: Genitourinary: Reports hematuria, Reports difficulty urinating and Reports dysuria Integumentary/Breasts: Skin/Breast: Denies rash Neurologic: Denies vertigo and Denies dizziness Psychiatric: Psychiatric: Denies anxiety PMFSH Past Medical History Medical History Tubular adenoma of colon Dyslipidemia Fatty liver Lung nodule Elevated liver enzymes Chronic left ear pain Thrombosed external hemorrhoid Depression Surgical History History of back surgery Social History Social History Housing: House Are you a primary nanny caregiver to a significant other at home: No Do you presently have visiting nurse or other home services: No Patient Tobacco Use Status: Current everyday Tobacco user Tobacco use type: Cigarette Cigarette Packs Per Day: 1.5 Cigarettes Per Day: 30.0 Years Smoked: started around age 16, 1PPD e-Cigarette/Vaping Use: Never Used Second Hand Smoke Exposure: No Advance Directives: No Advance Directives Information Provided: No service: No Current occupational status: employed Current occupation: [employer] Current occupational exposures/hazards: No Cognitive needs: No Hearing needs: No Vision needs: No Physical Exam Vital Signs: Vital Signs: Last Vital Signs Temp 98.6 F 05/23/25 19:21 Pulse 68 05/23/25 19:21 Resp 20 05/23/25 19:21 BP 115/74 05/23/25 19:21 Pulse Ox 96 05/23/25 19:21 O2 Del Method Room Air 05/23/25 19:21 BMI result Body Mass Index 29.5 Course Course Course Narrative: This is a Rapid Medical Exam performed in triage by Yesi Colby PA-C. Full HPI, ROS and PE to be performed by primary ED provider. 45 yo M s/p cystoscopy transurethral resection of bladder tumor, fulguration, bladder biopsies yesterday w/Dr. Casiano c/o gross hematuria since 11AM. +dysuria. denies abdominal pain or AC use PE: +bright red blood in morin bag Plan: labs, UA Reevaluation(s) Reevaluation #1: Discussed with Urology, Dr. aCsiano who recommends hand irrigation only, no CBI given the patient is postop day 1 from a tumor removal. She recommends a dose of IV ceftriaxone, will admit to the medical service with gentle hydration and she will see the patient in the morning Time: 18:12 Medications Administered Discontinued Medications Generic Name Dose Route Start Last Admin Trade Name Freq PRN Reason Stop Dose Admin Hydromorphone HCl 1 mg 05/23/25 17:30 05/23/25 18:14 Hydromorphone Hcl 1 Mg/Ml Syringe IVPUSH 05/23/25 17:31 1 mg ONCE ONE Administration Protocol Ondansetron HCl 4 mg 05/23/25 17:30 05/23/25 18:14 Ondansetron Hcl 4 Mg/2 Ml Vial IVPUSH 05/23/25 17:31 4 mg ONCE ONE Administration Medical Decision Making Medical Decision Making [facility] Narrative: 45-year-old male presents for evaluation of hematuria. He is postop day 1 from a bladder tumor resection. Plan to check basic labs, urinalysis. Discussed with urology Differential Diagnosis Differential Diagnoses: The differential diagnosis associated with the presentation includes Hematuria Anemia Coagulopathy Bladder tumor Cystitis Admission/Observation Consideration of admission/observation: Escalation of care including admission/observation considered Consult Healthcare Provider Management of the patient was discussed with: Certified Anesthesiologist Assistant (Urology) Lab Data [facility] Lab Attestation statement: I reviewed the patient's lab results. Mild leukocytosis, no significant anemia. Normal platelet count. No electrolyte abnormalities warranting dimension 05/23/25 19:42 05/23/25 18:07 Labs: Lab Results 05/23/25 05/23/25 05/23/25 Range/Units 18:07 18:08 19:42 WBC 12.3 H 13.8 H (4.8-10.8) X10*3/uL RBC 4.88 4.72 (4.60-5.80) X10*6/uL Hgb 15.1 14.7 (14.0-18.0) g/dl Hct 43.8 42.5 (42.0-52.0) % MCV 89.8 90.0 (80.0-98.0) fL MCH 30.9 31.1 (27.0-33.0) pg MCHC 34.5 34.6 (31.0-36.0) g/dl RDW 12.1 11.9 (11.0-16.0) % Plt Count 263 246 (160-400) X10*3/uL MPV 8.6 L 8.6 L (9.4-12.4) fL Immature Gran % (Auto) 0.3 (0.0-0.4) % Neut % (Auto) 71.1 (45-73) % Lymph % (Auto) 18.4 L (20-40) % Lander % (Auto) 7.7 (2-11) % Eos % (Auto) 2.1 (0-4) % Baso % (Auto) 0.4 (0-2) % Lymph # (Auto) 2.3 (1.2-4.9) X10*3/uL Lander # (Auto) 0.9 (0.1-1.2) X10*3/uL Eos # (Auto) 0.3 (0.0-0.4) X10*3/uL Baso # (Auto) 0.1 (0.0-0.2) X10*3/uL Abs Immat Gran (auto) 0.04 H (0.00-0.03) X10*3/uL Absolute Neuts (auto) 8.7 H (2.0-8.3) x10*3/uL Absolute Nucleated RBC 0.000 0.000 (0.0-0.012) X10*3/uL Nucleated RBC % (auto) 0.0 0.0 (0.0-0.2) /100WBC PT 12.3 (11.2-13.5) SEC INR 1.0 (0.9-1.1) Sodium 139 (135-145) mmol/L Potassium 4.4 (3.3-5.1) mmol/L Chloride 108 (96-108) mmol/L Carbon Dioxide 23 (22-29) mmol/L Anion Gap 12 (12-20) BUN 16 (9-16) mg/dL Creatinine 0.71 (0.5-1.4) mg/dL Estim Creat Clear Calc 138.6 Estimated GFR > 60 Random Glucose 103 (60-115) mg/dL Calcium 9.1 (8.4-10.2) mg/dL Total Bilirubin 0.7 (0.0-1.0) mg/dL Direct Bilirubin 0.2 (0.0-0.5) mg/dL AST 31 (5-37) U/L ALT 35 (0-40) U/L Alkaline Phosphatase 105 (39-117) U/L Total Protein 7.3 (6.5-8.0) g/dL Albumin 4.7 (3.5-5.0) g/dL Discharge Plan Discharge Clinical Impression: Hematuria Patient Disposition: Admitted As Inpatient Print Language: Sinhala
[2025-05-23 18:15] LABS: MANUAL DIFF FLAG NO
[2025-05-23 18:18] LABS: Hematocrit 43.8 % (42.0-52.0); Hemoglobin 15.1 g/dl (14.0-18.0); Imm Gran Abs Auto 0.04 X10*3/uL (0.00-0.03); Imm Gran Pct Auto 0.3 % (0.0-0.4); Lymphocytes Absolute Auto 2.3 X10*3/uL (1.2-4.9); Mean Corpuscular HGB Conc 34.5 g/dl (31.0-36.0); Mean Corpuscular Hemoglobin 30.9 pg (27.0-33.0); Mean Corpuscular Volume 89.8 fL (80.0-98.0); NRBC Abs Auto 0.000 X10*3/uL (0.0-0.012); NRBC Pct Auto 0.0 /100WBC (0.0-0.2); Platelet Count 263 X10*3/uL (160-400); Red Blood Count 4.88 X10*6/uL (4.60-5.80); White Blood Count 12.3 X10*3/uL (4.8-10.8)
[2025-05-23 18:23] LABS: INTERNATIONAL NORM RATIO 1.0 (0.9-1.1); Prothrombin Time 12.3 SEC (11.2-13.5)
[2025-05-23 18:42] LABS: Alanine Aminotransferase 35 U/L (0-40); Albumin Level 4.7 g/dL (3.5-5.0); Alkaline Phosphatase 105 U/L (39-117); Anion Gap 12 (12-20); Aspartate Amino Transferase 31 U/L (5-37); Blood Urea Nitrogen 16 mg/dL (9-16); Calcium 9.1 mg/dL (8.4-10.2); Carbon Dioxide 23 mmol/L (22-29); Chloride 108 mmol/L (96-108); Creatinine Clr Calc Pharmacy 138.6; Estimated Glomerular Filt Rate > 60; Potassium 4.4 mmol/L (3.3-5.1); Sodium 139 mmol/L (135-145); Total Protein 7.3 g/dL (6.5-8.0)
[2025-05-23 19:21] VITALS: BP 115/74; PULSE 68; RESP 20; TEMP 37; O2SAT 96
--- NOTE | 2025-05-23 19:28 | PC.NURSE ---
20 g IV in left AC
--- NOTE | 2025-05-23 19:31 | PC.NURSE ---
PA to bedside to reeval pt and plan of care. bloody output from morin, ?continue to irrigate. awaiting response from urology. patient cleaned up, bed linen changed and new gown provided. pt appears well vss. to repeat cbc.
[2025-05-23 19:58] LABS: Hematocrit 42.5 % (42.0-52.0); Hemoglobin 14.7 g/dl (14.0-18.0); Mean Corpuscular HGB Conc 34.6 g/dl (31.0-36.0); Mean Corpuscular Hemoglobin 31.1 pg (27.0-33.0); Mean Corpuscular Volume 90.0 fL (80.0-98.0); NRBC Abs Auto 0.000 X10*3/uL (0.0-0.012); NRBC Pct Auto 0.0 /100WBC (0.0-0.2); Platelet Count 246 X10*3/uL (160-400); Red Blood Count 4.72 X10*6/uL (4.60-5.80); White Blood Count 13.8 X10*3/uL (4.8-10.8)
[2025-05-23] MEDS: Lactated Ringers 1,000 ML 999 ML IV (20:31)
--- NOTE | 2025-05-23 20:54 | PC.NURSE ---
irrigated, large clots removed. bloody urine flowing into morin bag.
--- NOTE | 2025-05-23 20:57 | PM.IMHP ---
History of Present Illness Date of Service: 05/23/25 Attending physician on admission: Alessio Saenz Chief Complaint: hematuria Patient is a 45-year-old male with a past medical history significant for hyperlipidemia, depression and recent bladder tumor, s/p transurethral resection of bladder tumor yesterday who reported to the ED due to gross hematuria beginning around 11:00 today. Prior to this the Morin was draining yellow. The patient called Urology who stated in the blood was normal. He has developed severe lower abdominal pain and Morin is no longer draining. ED provider spoke with Dr. Caisano who recommends hand irrigation only, no CBI as patient is postop day 1 from tumor removal. She also recommended a 1 time dose of ceftriaxone and admit to medical service with gentle hydration and urology consult in the morning. Review of Systems Constitutional: Constitutional: Denies body ache(s), Reports chills, Denies fatigue, Denies fever(s) and Denies headache(s) Eyes: Eyes: Denies change in vision ENT: Denies headache(s), Denies nasal congestion and Denies sore throat Cardiovascular: Cardiovascular: Denies chest pain, Denies rapid heart rate, Denies leg edema, Denies lightheadedness and Denies dyspnea Respiratory: Respiratory: Denies chest congestion, Denies cough, Denies dyspnea and Denies wheezing Gastrointestinal: Gastrointestinal: Reports abdominal pain, Denies diarrhea, Denies nausea and Denies vomiting Genitourinary: Genitourinary: Reports as per HPI Musculoskeletal: Musculoskeletal: Denies back pain Integumentary/Breasts: Skin/Breast: Denies rash Neurologic: Denies confusion and Denies headache(s) Psychiatric: Psychiatric: Denies confusion Endocrine: Endocrine: Denies fatigue Allergic/Immunologic: Allergic/Immunologic: Denies wheezing [facility] Medical History Bladder tumor Tubular adenoma of colon Dyslipidemia Fatty liver Lung nodule Elevated liver enzymes Chronic left ear pain Thrombosed external hemorrhoid Depression Functional capacity: independent ambulation Surgical History (Updated 05/23/25 @ 21:42 by Sarah Edwards PA-C) History of back surgery Social History Household Members: Family Housing: House Are you a primary customer care assistant to a significant other at home: No Do you presently have visiting nurse or other home services: No Patient Tobacco Use Status: Current everyday Tobacco user Tobacco use type: Cigarette Cigarette Packs Per Day: 1.5 Cigarettes Per Day: 30.0 Years Smoked: started around age 16, 1PPD Smoked in Last 30 Days: Yes e-Cigarette/Vaping Use: Never Used Patient Interested in Nicotine Replacement: No Patient Given Instructions on How to Stop Smoking: No Second Hand Smoke Exposure: No Have you been hit, kicked, punched, or otherwise hurt by someone within the past year? If so, by whom?: No Do you feel safe in your current relationship?: Yes Is there a partner from a previous relationship who is making you feel unsafe now?: No Are you made to feel afraid or neglected: No Advance Directives: No Advance Directives Information Provided: No Do you have a plan to hurt others: No Plan Recently lost weight without trying: No Eating poorly because of decreased appetite: No Nutrition Risks: No Nutritional Risk Poor oral hygiene: No service: No Current occupational status: employed Current occupation: [employer] Current occupational exposures/hazards: No Cognitive needs: No Hearing needs: No Vision needs: No Meds Allergies Allergy/AdvReac Type Severity Reaction Status Date / Time aspirin Allergy Unknown Unknown Verified 05/23/25 16:23 Active Medications: Current Medications Lactated Ringer's (Lr) 1,000 mls @ 999 mls/hr IV .Q1H1M [facility] Stop: 05/23/25 21:15 Last Admin: 05/23/25 20:31 Dose: 999 mls/hr Lactated Ringer's (Lr) 1,000 mls @ 80 mls/hr IVCONT .[id number] [facility] Home Medications ?Medication ?Instructions ?Recorded ?Confirmed ?Last Taken ?Type sertraline 50 mg tablet 50 mg PO BEDTIME 05/23/25 05/23/25 05/22/25 History Physical Exam Vital Signs and Narrative: Vital Signs: Last Vital Signs Temp 98.6 F 05/23/25 19:21 Pulse 68 05/23/25 19:21 Resp 20 05/23/25 19:21 BP 115/74 05/23/25 19:21 Pulse Ox 96 05/23/25 19:21 O2 Del Method Room Air 05/23/25 19:21 BMI result Body Mass Index 29.5 General: AOx3, appears uncomfortable, seen with family members bedside Resp: CTA bilaterally CVS: S1, S2, RRR GI/: +BS, tender lower abd, no distention, morin draining bright red blood Skin: Warm, dry Neuro: Cranial nerves II-XII grossly intact bilaterally. Motor grossly intact bilaterally Extremities: No pitting edema Psych: Appropriate affect Const: General: No confusion Orientation/consciousness: No confusion Neuro: General: No confusion Results Labs 05/24/25 01:08 05/23/25 18:07 Labs: Laboratory Results - last 24 hr 05/23/25 05/23/25 05/23/25 18:07 18:08 19:42 MCV 89.8 90.0 MCH 30.9 31.1 MCHC 34.5 34.6 RDW 12.1 11.9 Plt Count 263 246 MPV 8.6 L 8.6 L Immature Gran % (Auto) 0.3 Neut % (Auto) 71.1 Lymph % (Auto) 18.4 L [place] % (Auto) 7.7 Eos % (Auto) 2.1 Baso % (Auto) 0.4 Lymph # (Auto) 2.3 [place] # (Auto) 0.9 Eos # (Auto) 0.3 Baso # (Auto) 0.1 Abs Immat Gran (auto) 0.04 H Absolute Neuts (auto) 8.7 H Absolute Nucleated RBC 0.000 0.000 Nucleated RBC % (auto) 0.0 0.0 PT 12.3 INR 1.0 Anion Gap 12 Estim Creat Clear Calc 138.6 Estimated GFR > 60 Random Glucose 103 Calcium 9.1 Total Bilirubin 0.7 Direct Bilirubin 0.2 AST 31 ALT 35 Alkaline Phosphatase 105 Total Protein 7.3 Albumin 4.7 Assessment and Plan (1) Gross hematuria: Status: Acute (2) History of transurethral resection of bladder tumor (TURBT): Status: Acute Plan Patient is a 45-year-old male with a past medical history significant for hyperlipidemia, depression and recent bladder tumor, s/p transurethral resection of bladder tumor yesterday who reported to the ED due to gross hematuria beginning around 11:00 today. gross hematuria/clots s/p transurethral resection of bladder tumor on 05/22/25 - H+H stable, monitor - hand irrigation and ceftriaxone x1 per Dr Casiano - IVF - hydroxyzine 25mg BID PRN bladder spasms and pyridium 200mg Q8H per Dr Casiano - UA ordered - bladder scan Q4H - urology consult - NPO per Dr Casiano - monitor CBC and BMP HLD - statin depression - buspirone, sertraline Full code VTE prophylaxis: Pneumoboots Patient with gross hematuria status post transurethral resection of bladder tumor yesterday, requiring admission for at least 2 midnight stay for bladder irrigation and monitoring. Quality Stroke Does the patient have a stroke diagnosis?: No VTE Prior VTE?: No VTE Risk Level:: Medical - moderate - high VTE Device Contraindication: N/A - Device Ordered VTE Drug Contraindication: Treatment Not Indicated
--- NOTE | 2025-05-23 21:02 | PHA.MEDREC ---
Addendum entered by Iggy Nolan PharmD 05/23/25 21:04: reviewed Original Note: Pharmacy Consult ? Medication Reconciliation Pharmacy has completed the medication reconciliation. Spoke with pt and he confirmed his medications.
--- NOTE | 2025-05-23 22:04 | PC.NURSE ---
unable to obtain bladder scan, bladder appears small with bladder scan. irrigated more small and large blood clots. Sraah SALAZAR aware.
--- NOTE | 2025-05-23 22:05 | PC.NURSE ---
IV in left AC kinked, IV catheter removed. New 18 g IV placed in left forearm
[2025-05-23 22:31] VITALS: BP 122/79; PULSE 76; RESP 20; TEMP 36.7; O2SAT 94
[2025-05-23] MEDS: oxyCODONE HCl Immed Release 5 MG TABLET PO (22:35)
[2025-05-23] MEDS: Lactated Ringers 1,000 ML 80 ML IVCONT (22:36)
--- NOTE | 2025-05-23 22:54 | HO.NURTONUR ---
Pt is a 45 y.o. male coming in with hematuria, with bladder tumor removed yesterday. Pt noticed bright red blood in [place] this AM. Labs remarkable for WBC 13.8, no imaging done. We have been performing bladder irrigation every 45-60 mins to help remove clots. Urology is advising against CBI at this time. Pt is utilizing PRN meds for pain control. He is very uncomfortable. VSS, a&ox4. 18 g left forearm. LR running at 80 mL/hr.
[2025-05-24] VITALS (18 sets, daily range): BP systolic 90–148; BP diastolic 55–94; PULSE 70–124; RESP 12–20; TEMP 35.4–37; O2SAT 95–99; BMI 31.8
[2025-05-24 01:13] LABS: MANUAL DIFF FLAG NO
[2025-05-24 01:16] LABS: Hematocrit 37.1 % (42.0-52.0); Hemoglobin 12.9 g/dl (14.0-18.0); Imm Gran Abs Auto 0.07 X10*3/uL (0.00-0.03); Imm Gran Pct Auto 0.5 % (0.0-0.4); Lymphocytes Absolute Auto 1.7 X10*3/uL (1.2-4.9); Mean Corpuscular HGB Conc 34.8 g/dl (31.0-36.0); Mean Corpuscular Hemoglobin 31.1 pg (27.0-33.0); Mean Corpuscular Volume 89.4 fL (80.0-98.0); NRBC Abs Auto 0.000 X10*3/uL (0.0-0.012); NRBC Pct Auto 0.0 /100WBC (0.0-0.2); Platelet Count 239 X10*3/uL (160-400); Red Blood Count 4.15 X10*6/uL (4.60-5.80); White Blood Count 13.0 X10*3/uL (4.8-10.8)
--- OUTSIDE RECORDS SUMMARY | 2025-05-24 04:58 | XMS_ITS | Data Portability ---
Author Organization [place] - [facility], Allergy Address [address] [address] Care Team Providers Care Trimmer Meat Name Role Phone CHRISSYEMILY PINK Primary Care Provider [phone] Assessment Encounter Date Assessment Date Assessment LastModified [...] %-0.1 % eye drops,susp ension 2024 025 [facility] #[id number], [address] [facility], [place], [address], 5 14:29:04 Patient TargetsNo targets recorded. Patient InstructionsNo instructions recorded. Reason for Referral None Reported. Problems Name Problem SNOMED Code Status Onset Date Resolution Date Notes Provider Name and Address Organization Details Recorded Time Sensorine ural hearing loss of bilateral ears 973230117 Active 2022 Sensorineu ral hearing loss, bilateral; Note: Date Diagnosed: 07/27/2022 3:01 PM (H90.3) Not Available Replaced by [facility] 4 03:19:02 Itching of skin 828488541 Active 2022 Pruritus, unspecifie d; Note: Date Diagnosed: 08/03/2022 12:44 PM (L29.9) Not Available Replaced by [facility] 4 03:19:03 Granulati ons on tympanic membrane 031540347 Active 2024 ANGIE LAWSON PA-C [address] [place] [address], [place], [address] , [place] - [facility] 5 14:28:05 Problem Notes None [...] topical solution 2022 active Medicatio n ID: [id number] Du ration Value: 14 Brand Name: clotrimaz ole Send Method: E-Prescri bed Subs Allowed: subs OK Specia l Instructi on: 4 drops to affected ear two times a day X 14 days [facility] ericName: clotrimaz ole Not Available Not Available [...] DIRECTED BY GASTROENT EROLOGY DEPARTMEN T AT [facility] active Not Available Not Available No t Available Anoro Ellipta 62.5 mcg-25 mcg/actuat ion powder for inhalation INHALE 1 PUFF DAILY active Not Available Not Available No t Available Vitals Date Recorded Body height Body mass index (BMI) Body weight Provider Name and Address Organization Details Last Updated DateTime 07/20/2024 172.72 cm 28.9 kg/m2 81067.55 g Codi Green [place] - [facility] 07/20/2024 09:25:48 Social History None recorded. Functional Status None recorded. Mental Status None recorded. Family History Nothing Reported. Medical History No medical history recorded. Past Encounters Encounter ID Performer Location Encounter Start Date Encounter Closed Date Diagnosis/Indication Diagnosis SNOMED-CT Code Diagnosis ICD10 Code Diagnosis IMO Codes Diagnosis Note [id number] ANGIE LAWSON PA-C [facility] [address] [address] 07/07/2024 13:49:21 07/07/2024 15:13:10 Itching of skin 220579341 L29.9 Sensorineu ral hearing loss of bilateral ears 858567710 H90.3 Granulatio ns on tympanic membrane 651410913 H73.899 left [id number] ANGIE LAWSON PA-C [facility] [address] [address] 07/20/2024 09:14:26 07/20/2024 09:36:26 Granulations on tympanic membrane 408975195 H73.899 left Health Concerns Section Related Observation LastModified by Organization Detai ls LastModified Time None Recorded Concern Status LastModified by Organization Details LastModified Time None Recorded Advance Directives Directive None Recorded Payers Insurance Date Sequence Insurance Name Policy Number Policy Crockett Covered Member ID Crockett Member ID Guarantor Name 03/21/2025 1 [facility] - DOS ON OR AFTER 2022 - ONE CARE (MEDICARE REPLACEMENT/ADV ANTAGE - HMO) Reshat Arifi [id number] Reshat Arifi Notes Date Note Type Note Provider Name and Address Organization Details Recorded Time 07/07/2024 text/html ROS as noted in the [facility] 44-year-old male presents for evaluation of the ears. He reports left otalgia for 1 month that improved with unknown otologic drops. He reports left ear pruritus for one year. He has a history of a low-grade fungal ear infection one year ago. He denies history of eczema or psoriasis. Smoker. NIDIA OCHOA MD [address] [place] [address], [phone], [facility] 07/08/2024 08:25:39 07/20/2024 text/html ROS as noted in the [facility] 44-year-old male presents for reevaluation of the ears. He reports symptoms resolved with topical TobraDex. Hearing is at baseline. No new concerns. TYLOR MAHONEY MD [address] [place] [address], [phone], [facility] 07/20/2024 17:14:21
[2025-05-24 05:47] LABS: Hematocrit 32.6 % (42.0-52.0); Hemoglobin 11.5 g/dl (14.0-18.0); Mean Corpuscular HGB Conc 35.3 g/dl (31.0-36.0); Mean Corpuscular Hemoglobin 31.5 pg (27.0-33.0); Mean Corpuscular Volume 89.3 fL (80.0-98.0); NRBC Abs Auto 0.000 X10*3/uL (0.0-0.012); NRBC Pct Auto 0.0 /100WBC (0.0-0.2); Platelet Count 270 X10*3/uL (160-400); Red Blood Count 3.65 X10*6/uL (4.60-5.80); White Blood Count 16.7 X10*3/uL (4.8-10.8)
[2025-05-24 06:05] LABS: Anion Gap 14 (12-20); Blood Urea Nitrogen 17 mg/dL (9-16); Calcium 8.5 mg/dL (8.4-10.2); Carbon Dioxide 21 mmol/L (22-29); Chloride 107 mmol/L (96-108); Creatinine Clr Calc Pharmacy 141.7; Estimated Glomerular Filt Rate > 60; Potassium 4.5 mmol/L (3.3-5.1); Sodium 137 mmol/L (135-145)
--- NOTE | 2025-05-24 07:28 | PC.NURSE ---
Pt admitted from the ED at 0009 per stretcher, noted with morin cath draining jenny blood and clots in the bag, pt alert and oriented, while doing the admission pt was restless and in excruciating hypogastric pain, manual bladder irrigation done 4x before pt can get comfortable, obtained large clots and jenny blood, morin bag has 1000 ml all jenny blood,Sarah updated as pt may warrant a CBI and higher level of care, repeat CBC done and result relayed, Dilaudid prn given with minimal and short time effect, Dilaudid increased, bentyl given, with no effect, pt has been on an off sleeping for 5 mins long and wake up in agonizing pain, Pyridium given when available,no effect, pt instructed to be NPO, noted routine vitas at 0359 with HR on the 120 and pt still mostly on pain, Dilaudid prn given an hour early as per Sarah, manual irrigation done at least very 30 mins with lots of clots and continuously jenny bleed since pt arrival t o the unit, communicated to Sarah, slept in short mins.
--- NOTE | 2025-05-24 07:45 | PC.NURSE ---
Patient in a lot of pain ,bloody urine present,RN Marielos reported that patient had to be hand irrigated q 15-20 min over night,patient in pain,RN irrigated [place] ,clots obtained,medicated with dilaudid,MARIE Junior notified,Dr. Kodak Damon notified and is on the way to see patient
[2025-05-24] MEDS: Opium/Belladonna 60/16.2 mg SUPP.RECT 1 SUPP PR (08:17)
--- NOTE | 2025-05-24 08:19 | PC.NURSE ---
Dr. Kodak Damon is in seeing patient
--- NOTE | 2025-05-24 08:24 | PC.NURSE ---
Report given to CAREER GUIDANCE COUNSELORNOELLE Matamoros
[2025-05-24] MEDS: Lactated Ringers 1,000 ML 80 ML IVCONT ×2 (09:06→17:54)
--- NOTE | 2025-05-24 11:52 | P.PNIM_ITS ---
Subjective Subjective Date of Service: 05/24/25 Interval History: Pt with gross hematuria with clots Nursing this morning was manually irrigating every 15-20 minutes, in significant lower abd pain Urology at bedside this morning putting in CBI Plan on scoping with possible cauterization this afternoon Review of Systems Review of Systems: Yes all other systems are reviewed and are negative Physical Exam 2 Exam: Exam: General: AOx3, uncomfortable, in pain Resp: CTA bilaterally CVS: S1, S2, RRR GI: suprapubic abd tenderness : catheter in place with gross hematuria with clots Skin: Warm, dry Neuro: Cranial nerves II-XII grossly intact bilaterally. Motor grossly intact bilaterally Extremities: No edema Psych: Appropriate affect Vital Signs: Vital Signs: Last Vital Signs Temp 98.6 F 05/24/25 11:39 Pulse 81 05/24/25 11:39 Resp 16 05/24/25 11:39 BP 117/67 05/24/25 11:39 Pulse Ox 95 05/24/25 11:39 O2 Del Method Room Air 05/24/25 11:39 BMI result Body Mass Index 31.8 Objective Data Active Medications Acetaminophen (Acetaminophen 325 Mg Tablet) 650 mg PO Q6H PRN PRN Reason: Pain, Mild 1-3,fever,headache Atorvastatin Calcium (Atorvastatin Calcium 40 Mg Tablet) 40 mg PO BEDTIME [facility] Last Admin: 05/23/25 22:33 Dose: 40 mg Documented By: PRINCE Belladonna Alkaloids/Opium (Opium/Belladonna 60/16.2 Mg Supp.Rect) 1 supp MN Q8H PRN PRN Reason: bladder spasms Last Admin: 05/24/25 08:17 Dose: 1 supp Documented By: MARYJO Buspirone HCl (Buspirone Hcl 5 Mg Tablet) 5 mg PO BID [facility] Last Admin: 05/24/25 09:05 Dose: 5 mg Documented By: MARYJO Calcium Carbonate (Calcium Carbonate 750 Mg Tab.Chew) 750 mg PO Q4H PRN PRN Reason: Heartburn Gabapentin (Gabapentin 300 Mg Capsule) 300 mg PO BEDTIME [facility] Last Admin: 05/23/25 22:33 Dose: 300 mg Documented By: PRINCE Hydromorphone HCl (Hydromorphone Hcl 1 Mg/Ml Syringe) 1 mg IVPUSH Q3H PRN; Protocol PRN Reason: Pain, Severe (Pain Scale 7-10) Last Admin: 05/24/25 07:28 Dose: 1 mg Documented By: MARYJO Hydroxyzine HCl (Hydroxyzine Hcl 25 Mg Tablet) 25 mg PO BID PRN PRN Reason: bladder spasms Last Admin: 05/24/25 04:20 Dose: 25 mg Documented By: CASTILAndrew Lactated Ringer's (Lr) 1,000 mls @ 80 mls/hr IVCONT .[id number] [facility] Last Admin: 05/24/25 09:06 Dose: 80 mls/hr Documented By: MARYJO Magnesium Hydroxide (Milk Of Magnesia 30 Ml Oral.Susp) 30 ml PO DAILY PRN PRN Reason: Constipation Melatonin (Melatonin 3 Mg Tablet) 6 mg PO BEDTIME PRN PRN Reason: Insomnia Ondansetron HCl (Ondansetron Hcl 4 Mg/2 Ml Vial) 4 mg IVPUSH Q8H PRN PRN Reason: Nausea and Vomiting Oxycodone HCl (Oxycodone Hcl Immed Release 5 Mg Tablet) 5 mg PO Q6H PRN PRN Reason: Pain, Moderate(Pain Scale 4-6) Last Admin: 05/23/25 22:35 Dose: 5 mg Documented By: PRINCE Phenazopyridine HCl (Phenazopyridine Hcl 200 Mg Tablet) 200 mg PO Q8H [facility] Stop: 05/26/25 02:10 Last Admin: 05/24/25 10:39 Dose: 200 mg Documented By: MARYJO Sertraline HCl (Sertraline Hcl 50 Mg Tablet) 50 mg PO BEDTIME [facility] Last Admin: 05/23/25 22:33 Dose: 50 mg Documented By: PRINCE Sodium Chloride (0.9 % Sodium Chloride Flush 3 Ml Syringe) 3 ml IVFLUSH QSHIFT [facility] Last Admin: 05/24/25 07:38 Dose: Not Given Documented By: MARYJO Non-Admin Reason: IV Running Labs 05/24/25 05:32 05/24/25 05:32 Labs: Laboratory Results - last 24 hr 05/23/25 05/23/25 05/23/25 18:07 18:08 19:42 MCV 89.8 90.0 MCH 30.9 31.1 MCHC 34.5 34.6 RDW 12.1 11.9 Plt Count 263 246 MPV 8.6 L 8.6 L Immature Gran % (Auto) 0.3 Neut % (Auto) 71.1 Lymph % (Auto) 18.[address] [place] % (Auto) 7.7 Eos % (Auto) 2.1 Baso % (Auto) 0.4 Lymph # (Auto) 2.3 [place] # (Auto) 0.9 Eos # (Auto) 0.3 Baso # (Auto) 0.1 Abs Immat Gran (auto) 0.04 H Absolute Neuts (auto) 8.7 H Absolute Nucleated RBC 0.000 0.000 Nucleated RBC % (auto) 0.0 0.0 PT 12.3 INR 1.0 Anion Gap 12 Estim Creat Clear Calc 138.6 Estimated GFR > 60 Random Glucose 103 Lactic Acid Calcium 9.1 Total Bilirubin 0.7 Direct Bilirubin 0.2 AST 31 ALT 35 Alkaline Phosphatase 105 Total Protein 7.3 Albumin 4.7 05/23/25 05/24/25 05/24/25 20:26 01:08 05:32 MCV 89.4 89.3 MCH 31.1 31.5 MCHC 34.8 35.3 RDW 12.0 11.9 Plt Count 239 270 MPV 8.6 L 8.8 L Immature Gran % (Auto) 0.5 H Neut % (Auto) 78.5 H Lymph % (Auto) 13.[address] [place] % (Auto) 7.0 Eos % (Auto) 0.6 Baso % (Auto) 0.3 Lymph # (Auto) 1.7 [place] # (Auto) 0.9 Eos # (Auto) 0.1 Baso # (Auto) 0.0 Abs Immat Gran (auto) 0.07 H Absolute Neuts (auto) 10.2 H Absolute Nucleated RBC 0.000 0.000 Nucleated RBC % (auto) 0.0 0.0 PT INR Anion Gap 14 Estim Creat Clear Calc 141.7 Estimated GFR > 60 Random Glucose 160 H Lactic Acid 1.3 Calcium 8.5 D Total Bilirubin Direct Bilirubin AST ALT Alkaline Phosphatase Total Protein Albumin Assessment and Plan (1) Gross hematuria: Status: Acute Plan Patient is a 45-year-old male with a past medical history significant for hyperlipidemia, depression and recent bladder tumor, s/p transurethral resection of bladder tumor yesterday who reported to the ED due to gross hematuria beginning around 11:00 today. gross hematuria/clots s/p transurethral resection of bladder tumor on 05/22/25 - H+H stable, monitor - ceftriaxone x1 per Dr Casiano - IVF, NPO - failed hand irrigation, on CBI - hydroxyzine 25mg BID PRN bladder spasms and pyridium 200mg Q8H per Dr Casiano - UA ordered - bladder scan Q4H - urology consulted, OR for cyctoscopy fulgaration and clot evacuation this afternoon - monitor CBC and BMP HLD - statin depression - buspirone, sertraline Full code VTE prophylaxis: Pneumoboots Patient requires continued hospitalization for management and monitoring of gross hematuria status post transurethral resection of bladder tumor yesterday and repeat cystoscopy with fulguration and clot evacuation this afternoon. Quality Stroke Does the patient have a stroke diagnosis?: No VTE Prior VTE?: No VTE Risk Level:: Medical - moderate - high VTE Device Contraindication: N/A - Device Ordered VTE Drug Contraindication: Treatment Not Indicated
[2025-05-24] MEDS: oxyCODONE HCl Immed Release 5 MG TABLET PO (12:29)
--- NOTE | 2025-05-24 12:48 | MHC.CM.PN ---
IMM 05/24/25 S/P TURBH 05/22/25 DC to home 05/23/25 Patient returns to [facility] [place] jenny blood in [place]. He lives with his family He is independent with all functional mobility Plan for procedure in OR today. DP Home self care. Patient will arrange for a family member to provide transportation home.
--- NOTE | 2025-05-24 13:10 | PC.NURSE ---
patient transported to OR by OR staff
--- NOTE | 2025-05-24 13:23 | PC.NURSE ---
#18 left arm iv patent cbi running without difficulties
--- NOTE | 2025-05-24 13:59 | PM.UROCN ---
History of Present Illness Consult details Consult date: 06/06/25 Narrative: 45-year-old male with a past medical history significant for hyperlipidemia, depression and recent bladder tumor, s/p transurethral resection of bladder tumor on Wednesday. Came to ED due to gross hematuria. He has needed bladder clot irrigation and is on cbi Review of Systems Review of Systems: Yes all other systems are reviewed and are negative Constitutional: Constitutional: Reports no additional constitutional complaints Eyes: Eyes: Reports no additional eye complaints ENT: Reports system reviewed and no additional complaints, except as documented Cardiovascular: Cardiovascular: Reports no additional cardiovascular complaints Respiratory: Respiratory: Reports no additional respiratory complaints Gastrointestinal: Gastrointestinal: Reports no additional gastrointestinal complaints Genitourinary: Genitourinary: Reports as per HPI Musculoskeletal: Musculoskeletal: Reports no additional musculoskeletal complaints Integumentary/Breasts: Skin/Breast: Reports system reviewed and no additional complaints, except as docu Neurologic: Reports system reviewed and no additional complaints, except as documented Psychiatric: Psychiatric: Reports no additional psychiatric complaints Endocrine: Endocrine: Reports no additional endocrine complaints Hematologic/Lymphatic: Hematologic/Lymphatic: Reports no additional hematologic/lymphatic complaints Allergic/Immunologic: Allergic/Immunologic: Reports no additional allergic/immunologic complaints [facility] Past Medical History Medical History (Updated 05/24/25 @ 14:04 by Alicia Santacruz MD) Bladder tumor Tubular adenoma of colon Dyslipidemia Fatty liver Lung nodule Elevated liver enzymes Chronic left ear pain Thrombosed external hemorrhoid Depression Surgical History Surgical History (Updated 05/24/25 @ 13:25 by Telma Luther RN) History of bladder surgery History of back surgery Social History Social History Household Members: Family Housing: House Are you a primary farm or ranch animal caretaker to a significant other at home: No Do you presently have visiting nurse or other home services: No Patient Tobacco Use Status: Current everyday Tobacco user Tobacco use type: Cigarette Cigarette Packs Per Day: 1.5 Cigarettes Per Day: 30.0 Years Smoked: started around age 16, 1PPD Smoked in Last 30 Days: Yes e-Cigarette/Vaping Use: Never Used Patient Interested in Nicotine Replacement: No Patient Given Instructions on How to Stop Smoking: No Second Hand Smoke Exposure: No Have you been hit, kicked, punched, or otherwise hurt by someone within the past year? If so, by whom?: No Do you feel safe in your current relationship?: Yes Is there a partner from a previous relationship who is making you feel unsafe now?: No Are you made to feel afraid or neglected: No Are you DNR?: No Advance Directives: No Advance Directives Information Provided: No Do you have a plan to hurt others: No Plan Recently lost weight without trying: No Eating poorly because of decreased appetite: No Nutrition Risks: No Nutritional Risk Poor oral hygiene: No service: No Current occupational status: employed Current occupation: [employer] Current occupational exposures/hazards: No Cognitive needs: No Hearing needs: No Vision needs: No Meds Allergies Allergy/AdvReac Type Severity Reaction Status Date / Time aspirin Allergy Severe Unknown Verified 05/24/25 13:20 Active Medications: Current Medications Acetaminophen (Acetaminophen 325 Mg Tablet) 650 mg PO Q6H PRN PRN Reason: Pain, Mild 1-3,fever,headache Atorvastatin Calcium (Atorvastatin Calcium 40 Mg Tablet) 40 mg PO BEDTIME [facility] Last Admin: 05/23/25 22:33 Dose: 40 mg Belladonna Alkaloids/Opium (Opium/Belladonna 60/16.2 Mg Supp.Rect) 1 supp [place] Q8H PRN PRN Reason: bladder spasms Last Admin: 05/24/25 08:17 Dose: 1 supp Buspirone HCl (Buspirone Hcl 5 Mg Tablet) 5 mg PO BID [facility] Last Admin: 05/24/25 09:05 Dose: 5 mg Calcium Carbonate (Calcium Carbonate 750 Mg Tab.Chew) 750 mg PO Q4H PRN PRN Reason: Heartburn Gabapentin (Gabapentin 300 Mg Capsule) 300 mg PO BEDTIME [facility] Last Admin: 05/23/25 22:33 Dose: 300 mg Hydromorphone HCl (Hydromorphone Hcl 1 Mg/Ml Syringe) 1 mg IVPUSH Q3H PRN; Protocol PRN Reason: Pain, Severe (Pain Scale 7-10) Last Admin: 05/24/25 07:28 Dose: 1 mg Hydroxyzine HCl (Hydroxyzine Hcl 25 Mg Tablet) 25 mg PO BID PRN PRN Reason: bladder spasms Last Admin: 05/24/25 04:20 Dose: 25 mg Lactated Ringer's (Lr) 1,000 mls @ 80 mls/hr IVCONT .[id number] [facility] Last Admin: 05/24/25 09:06 Dose: 80 mls/hr Magnesium Hydroxide (Milk Of Magnesia 30 Ml Oral.Susp) 30 ml PO DAILY PRN PRN Reason: Constipation Melatonin (Melatonin 3 Mg Tablet) 6 mg PO BEDTIME PRN PRN Reason: Insomnia Ondansetron HCl (Ondansetron Hcl 4 Mg/2 Ml Vial) 4 mg IVPUSH Q8H PRN PRN Reason: Nausea and Vomiting Oxycodone HCl (Oxycodone Hcl Immed Release 5 Mg Tablet) 5 mg PO Q6H PRN PRN Reason: Pain, Moderate(Pain Scale 4-6) Last Admin: 05/24/25 12:29 Dose: 5 mg Phenazopyridine HCl (Phenazopyridine Hcl 200 Mg Tablet) 200 mg PO Q8H [facility] Stop: 05/26/25 02:10 Last Admin: 05/24/25 10:39 Dose: 200 mg Sertraline HCl (Sertraline Hcl 50 Mg Tablet) 50 mg PO BEDTIME [facility] Last Admin: 05/23/25 22:33 Dose: 50 mg Sodium Chloride (0.9 % Sodium Chloride Flush 3 Ml Syringe) 3 ml IVFLUSH QSHIFT [facility] Last Admin: 05/24/25 07:38 Dose: Not Given Home Medications ?Medication ?Instructions ?Recorded ?Confirmed ?Last Taken ?Type sertraline 50 mg tablet 50 mg PO BEDTIME 05/23/25 05/23/25 05/22/25 History Physical Exam Vital Signs: Vital Signs: Last Vital Signs Temp 97.5 F 05/24/25 13:20 Pulse 98 05/24/25 13:20 Resp 20 05/24/25 13:20 BP 116/72 05/24/25 13:20 Pulse Ox 95 05/24/25 13:20 O2 Del Method Room Air 05/24/25 13:20 BMI result Body Mass Index 31.8 Const: General: healthy appearing, no acute distress and well developed Orientation/consciousness: patient oriented x3 HEENT: Head: Yes normocephalic and Yes atraumatic Eyes: Conjunctivae: conjunctivae normal Neck: Neck: Yes normal visual inspection Chest: Chest palpation & inspection: normal inspection of the chest Resp: Effort & Inspection: normal respiratory effort Cardio: Rate: regular rate GI: Inspection: Yes normal to inspection : Other: morin, blood at meatus Neuro: General: patient oriented x3 Psych: Appearance: grossly normal Affect: normal affect Results Labs 05/24/25 05:32 05/24/25 05:32 Labs: Abnormal lab results 05/23/25 05/23/25 05/24/25 Range/Units 18:08 19:42 01:08 WBC 12.3 H 13.8 H 13.0 H (4.8-10.8) X10*3/uL RBC 4.15 L (4.60-5.80) X10*6/uL Hgb 12.9 L (14.0-18.0) g/dl Hct 37.1 L (42.0-52.0) % MPV 8.6 L 8.6 L 8.6 L (9.4-12.4) fL Immature Gran % (Auto) 0.5 H (0.0-0.4) % Neut % (Auto) 78.5 H (45-73) % Lymph % (Auto) 18.4 L 13.1 L (20-40) % Abs Immat Gran (auto) 0.04 H 0.07 H (0.00-0.03) X10*3/uL Absolute Neuts (auto) 8.7 H 10.2 H (2.0-8.3) x10*3/uL Carbon Dioxide (22-29) mmol/L BUN (9-16) mg/dL Random Glucose (60-115) mg/dL 05/24/25 Range/Units 05:32 WBC 16.7 H (4.8-10.8) X10*3/uL RBC 3.65 L (4.60-5.80) X10*6/uL Hgb 11.5 L (14.0-18.0) g/dl Hct 32.6 L (42.0-52.0) % MPV 8.8 L (9.4-12.4) fL Immature Gran % (Auto) (0.0-0.4) % Neut % (Auto) (45-73) % Lymph % (Auto) (20-40) % Abs Immat Gran (auto) (0.00-0.03) X10*3/uL Absolute Neuts (auto) (2.0-8.3) x10*3/uL Carbon Dioxide 21 L (22-29) mmol/L BUN 17 H (9-16) mg/dL Random Glucose 160 H (60-115) mg/dL Short CBC 05/23/25 05/23/25 05/24/25 Range/Units 18:08 19:42 01:08 WBC 12.3 H 13.8 H 13.0 H (4.8-10.8) X10*3/uL Hgb 15.1 14.7 12.9 L (14.0-18.0) g/dl Hct 43.8 42.5 37.1 L (42.0-52.0) % Plt Count 263 246 239 (160-400) X10*3/uL 05/24/25 Range/Units 05:32 WBC 16.7 H (4.8-10.8) X10*3/uL Hgb 11.5 L (14.0-18.0) g/dl Hct 32.6 L (42.0-52.0) % Plt Count 270 (160-400) X10*3/uL BMP 05/23/25 05/24/25 18:07 05:32 Sodium 139 137 Potassium 4.4 4.5 Chloride 108 107 Carbon Dioxide 23 21 L BUN 16 17 H Creatinine 0.71 0.72 Calcium 9.1 8.5 D Liver Function 05/23/25 Range/Units 18:07 Total Bilirubin 0.7 (0.0-1.0) mg/dL Direct Bilirubin 0.2 (0.0-0.5) mg/dL AST 31 (5-37) U/L ALT 35 (0-40) U/L Alkaline Phosphatase 105 (39-117) U/L Albumin 4.7 (3.5-5.0) g/dL All other labs normal. Assessment and Plan (1) Gross hematuria: Status: Acute (2) Bladder tumor: Status: Acute (3) History of transurethral resection of bladder tumor (TURBT): Status: Acute Plan Pt on CBI OR for cystoscopy fulgaration, clot evacuation Procedures Date of Service Date of Service: 05/24/25
--- NOTE | 2025-05-24 14:09 | P.CONAN_ITS ---
[facility] Active Problems Active Problems: All Active Problems (Updated 05/24/25 @ 14:04 by Alicia Santacruz MD) Bladder mass (Acute) History of transurethral resection of bladder tumor (TURBT) (Acute) Gross hematuria (Acute) Hematuria (Acute) Abnormal cytology (Acute) Renal lesion (Acute) Nicotine dependence (Acute) Positive colorectal cancer screening using Cologuard test (Acute) Screening for prostate cancer (Acute) Chronic lower back pain (Acute) Hematuria (Acute) Dyspnea on exertion (Acute) TM (tympanic membrane disorder) (Acute) Otitis externa of left ear (Acute) Incidental lung nodule, greater than or equal to 8mm (Acute) Multiple lung nodules on CT (Acute) Screening for colon cancer (Acute) Inflammatory pain (Acute) Fatty liver (Acute) Acute hemorrhoid (Acute) Smoker (Acute) Ear itching (Acute) Microscopic hematuria (Acute) Depression, major, recurrent (Acute) Physical exam (Acute) Dyslipidemia (Acute) Otitis externa (Acute) Bladder tumor (Acute) Tubular adenoma of colon (Acute) History of back surgery (Acute) Chronic left ear pain (Acute) Thrombosed external hemorrhoid (Acute) Depression (Acute) Past Medical History Medical History Bladder tumor Tubular adenoma of colon Dyslipidemia Fatty liver Lung nodule Elevated liver enzymes Chronic left ear pain Thrombosed external hemorrhoid Depression Functional capacity: independent ambulation Family History Family history of problems with anesthesia: No Surgical History Surgical History History of bladder surgery History of back surgery History of Problems with Anesthesia: No Social History Social History Household Members: Family Housing: House Are you a primary health care coordinator to a significant other at home: No Do you presently have visiting nurse or other home services: No Patient Tobacco Use Status: Current everyday Tobacco user Tobacco use type: Cigarette Cigarette Packs Per Day: 1.5 Cigarettes Per Day: 30.0 Years Smoked: started around age 16, 1PPD Smoked in Last 30 Days: Yes e-Cigarette/Vaping Use: Never Used Patient Interested in Nicotine Replacement: No Patient Given Instructions on How to Stop Smoking: No Second Hand Smoke Exposure: No Have you been hit, kicked, punched, or otherwise hurt by someone within the past year? If so, by whom?: No Do you feel safe in your current relationship?: Yes Is there a partner from a previous relationship who is making you feel unsafe now?: No Are you made to feel afraid or neglected: No Are you DNR?: No Advance Directives: No Advance Directives Information Provided: No Do you have a plan to hurt others: No Plan Recently lost weight without trying: No Eating poorly because of decreased appetite: No Nutrition Risks: No Nutritional Risk Poor oral hygiene: No service: No Current occupational status: employed Current occupation: [employer] Current occupational exposures/hazards: No Cognitive needs: No Hearing needs: No Vision needs: No Meds Allergies Allergy/AdvReac Type Severity Reaction Status Date / Time aspirin Allergy Severe Unknown Verified 05/24/25 13:20 Active Medications: Current Medications Acetaminophen (Acetaminophen 325 Mg Tablet) 650 mg PO Q6H PRN PRN Reason: Pain, Mild 1-3,fever,headache Atorvastatin Calcium (Atorvastatin Calcium 40 Mg Tablet) 40 mg PO BEDTIME [facility] Last Admin: 05/23/25 22:33 Dose: 40 mg Belladonna Alkaloids/Opium (Opium/Belladonna 60/16.2 Mg Supp.Rect) 1 supp [place] Q8H PRN PRN Reason: bladder spasms Last Admin: 05/24/25 08:17 Dose: 1 supp Buspirone HCl (Buspirone Hcl 5 Mg Tablet) 5 mg PO BID [facility] Last Admin: 05/24/25 09:05 Dose: 5 mg Calcium Carbonate (Calcium Carbonate 750 Mg Tab.Chew) 750 mg PO Q4H PRN PRN Reason: Heartburn Gabapentin (Gabapentin 300 Mg Capsule) 300 mg PO BEDTIME [facility] Last Admin: 05/23/25 22:33 Dose: 300 mg Hydromorphone HCl (Hydromorphone Hcl 1 Mg/Ml Syringe) 1 mg IVPUSH Q3H PRN; Protocol PRN Reason: Pain, Severe (Pain Scale 7-10) Last Admin: 05/24/25 07:28 Dose: 1 mg Hydroxyzine HCl (Hydroxyzine Hcl 25 Mg Tablet) 25 mg PO BID PRN PRN Reason: bladder spasms Last Admin: 05/24/25 04:20 Dose: 25 mg Lactated Ringer's (Lr) 1,000 mls @ 80 mls/hr IVCONT .[id number] [facility] Last Admin: 05/24/25 09:06 Dose: 80 mls/hr Cefazolin Sodium/Dextrose (Ancef) 2 gm in 50 mls @ 100 mls/hr IV PREOP ONE Stop: 05/24/25 14:35 Magnesium Hydroxide (Milk Of Magnesia 30 Ml Oral.Susp) 30 ml PO DAILY PRN PRN Reason: Constipation Melatonin (Melatonin 3 Mg Tablet) 6 mg PO BEDTIME PRN PRN Reason: Insomnia Ondansetron HCl (Ondansetron Hcl 4 Mg/2 Ml Vial) 4 mg IVPUSH Q8H PRN PRN Reason: Nausea and Vomiting Oxycodone HCl (Oxycodone Hcl Immed Release 5 Mg Tablet) 5 mg PO Q6H PRN PRN Reason: Pain, Moderate(Pain Scale 4-6) Last Admin: 05/24/25 12:29 Dose: 5 mg Phenazopyridine HCl (Phenazopyridine Hcl 200 Mg Tablet) 200 mg PO Q8H [facility] Stop: 05/26/25 02:10 Last Admin: 05/24/25 10:39 Dose: 200 mg Sertraline HCl (Sertraline Hcl 50 Mg Tablet) 50 mg PO BEDTIME [facility] Last Admin: 05/23/25 22:33 Dose: 50 mg Sodium Chloride (0.9 % Sodium Chloride Flush 3 Ml Syringe) 3 ml IVFLUSH QSHIFT [facility] Last Admin: 05/24/25 07:38 Dose: Not Given Home Medications ?Medication ?Instructions ?Recorded ?Confirmed ?Last Taken ?Type sertraline 50 mg tablet 50 mg PO BEDTIME 05/23/2505/22/25 History Exam Height,Weight and Vital Signs: Height 5 ft 8 in Weight 94.9 kg Last Vital Signs Temp 97.5 F 05/24/25 13:20 Pulse 98 05/24/25 13:20 Resp 20 05/24/25 13:20 BP 116/72 05/24/25 13:20 Pulse Ox 95 05/24/25 13:20 O2 Del Method Room Air 05/24/25 13:20 Pertinent Lab Results Pertinent Lab Results: Laboratory Tests 05/23/25 05/23/25 05/23/25 18:07 18:08 19:42 WBC 12.3 H 13.8 H RBC 4.88 4.72 Hgb 15.1 14.7 Hct 43.8 42.5 MCV 89.8 90.0 MCH 30.9 31.1 MCHC 34.5 34.6 RDW 12.1 11.9 Plt Count 263 246 MPV 8.6 L 8.6 L Immature Gran % (Auto) 0.3 Neut % (Auto) 71.1 Lymph % (Auto) 18.4 L [place] % (Auto) 7.7 Eos % (Auto) 2.1 Baso % (Auto) 0.4 Lymph # (Auto) 2.3 [place] # (Auto) 0.9 Eos # (Auto) 0.3 Baso # (Auto) 0.1 Abs Immat Gran (auto) 0.04 H Absolute Neuts (auto) 8.7 H Absolute Nucleated RBC 0.000 0.000 Nucleated RBC % (auto) 0.0 0.0 PT 12.3 INR 1.0 Sodium 139 Potassium 4.4 Chloride 108 Carbon Dioxide 23 Anion Gap 12 BUN 16 Creatinine 0.71 Estim Creat Clear Calc 138.6 Estimated GFR > 60 Random Glucose 103 Lactic Acid Calcium 9.1 Total Bilirubin 0.7 Direct Bilirubin 0.2 AST 31 ALT 35 Alkaline Phosphatase 105 Total Protein 7.3 Albumin 4.7 05/23/25 05/24/25 05/24/25 20:26 01:08 05:32 WBC 13.0 H 16.7 H RBC 4.15 L 3.65 L Hgb 12.9 L 11.5 L Hct 37.1 L 32.6 L MCV 89.4 89.3 MCH 31.1 31.5 MCHC 34.8 35.3 RDW 12.0 11.9 Plt Count 239 270 MPV 8.6 L 8.8 L Immature Gran % (Auto) 0.5 H Neut % (Auto) 78.5 H Lymph % (Auto) 13.1 L [place] % (Auto) 7.0 Eos % (Auto) 0.6 Baso % (Auto) 0.3 Lymph # (Auto) 1.7 [place] # (Auto) 0.9 Eos # (Auto) 0.1 Baso # (Auto) 0.0 Abs Immat Gran (auto) 0.07 H Absolute Neuts (auto) 10.2 H Absolute Nucleated RBC 0.000 0.000 Nucleated RBC % (auto) 0.0 0.0 PT INR Sodium 137 Potassium 4.5 Chloride 107 Carbon Dioxide 21 L Anion Gap 14 BUN 17 H Creatinine 0.72 Estim Creat Clear Calc 141.7 Estimated GFR > 60 Random Glucose 160 H Lactic Acid 1.3 Calcium 8.5 D Total Bilirubin Direct Bilirubin AST ALT Alkaline Phosphatase Total Protein Albumin Airway Mallampati Class: III TM Dist: >3cm Neck ROM: Full Loose/Missing/Broken Teeth: No Heart: RRR Lungs: CTA Assessment and Plan Assessment Anesthesia Assessment: Anesthesia Plan Discussed and Chart Reviewed Final Anesthetic Review Family History of Problems with Anesthesia: No History of Problems with Anesthesia: No NPO: Yes ASA Class: III Final Preanesthetic Review: Meds/Allgs Chart Reviewed, Consent Obtained/Reviewed and Anes Risks/Benef Reviewed Patient Risk: Low Procedure Risk: Low Anesthetic Plan Anesthetic Plan: GA Disposition: Standard PACU
--- NOTE | 2025-05-24 16:59 | P.OP_ITS ---
Operative Note Operative Note Date of Service: 05/24/25 Narrative: PREOP DIAGNOSIS: GROSS HEMATURIA POSTOP DIAGNOSIS: GROSS HEMATURIA PROCEDURE: CYSTOSCOPY EVACUATION BLADDER CLOTS - FULGURATION SURGEON: Alicia Santacruz MD ANESTHESIA: General Indications: S/P Transurethral bladder tumor resection on 05/22/25, patient presented to ED with gross hematuria, requiring hand irrigation for significant clot, was placed on CBI. Details of procedure: The patient was brought into the operating room placed on the OR table in supine position. Antibiotics - Ancef 2 gm IV. General anesthesia was administered. The patient was repositioned into lithotomy position, prepped and draped in the usual sterile fashion. Time-out was done per protocol. The 24 fr resectoscope was passed under direct visualization. The bulbous urethra was within normal limits. The prostatic urethra was nonobstructive. Visualization of the bladder Significant clots noted. The Ellik evacuator was used to irrigate out significant clot. There was oozing from prior biopsied tissue, the loop and rollar ball attachment was used for fulguration. Once adequate hemostasis was observed a [address] 30 cc balloon was passed without difficulty. CBI was started in the OR with normal saline. The patient was brought out of anesthesia and taken to recovery in stable condition. Complications: None EBL: Significant clot in bladder >500 mL Drains: [address] catheter 30 cc balloon
[2025-05-25] VITALS (13 sets, daily range): BP systolic 84–115; BP diastolic 46–60; PULSE 79–96; RESP 16–20; TEMP 36.8–37.3; O2SAT 91–95
[2025-05-25] MEDS: Lactated Ringers 1,000 ML 80 ML IVCONT (05:18)
[2025-05-25 06:44] LABS: Anion Gap 10 (12-20); Blood Urea Nitrogen 17 mg/dL (9-16); Calcium 7.8 mg/dL (8.4-10.2); Carbon Dioxide 29 mmol/L (22-29); Chloride 105 mmol/L (96-108); Creatinine Clr Calc Pharmacy 164.5; Estimated Glomerular Filt Rate > 60; Potassium 3.9 mmol/L (3.3-5.1); Sodium 140 mmol/L (135-145)
[2025-05-25 07:17] LABS: Hematocrit 21.2 % (42.0-52.0); Hemoglobin 7.4 g/dl (14.0-18.0); Mean Corpuscular HGB Conc 34.9 g/dl (31.0-36.0); Mean Corpuscular Hemoglobin 31.5 pg (27.0-33.0); Mean Corpuscular Volume 90.2 fL (80.0-98.0); NRBC Abs Auto 0.000 X10*3/uL (0.0-0.012); NRBC Pct Auto 0.0 /100WBC (0.0-0.2); Platelet Count 193 X10*3/uL (160-400); Red Blood Count 2.35 X10*6/uL (4.60-5.80); White Blood Count 11.5 X10*3/uL (4.8-10.8)
--- NOTE | 2025-05-25 07:27 | P.PNIM_ITS ---
Subjective Subjective Date of Service: 05/25/25 Physical Exam 2 Vital Signs: Vital Signs: Last Vital Signs Temp 98.6 F 05/25/25 04:00 Pulse 79 05/25/25 04:00 Resp 18 05/25/25 04:00 BP 96/60 05/25/25 04:00 Pulse Ox 93 05/25/25 04:00 O2 Del Method Room Air 05/25/25 04:00 O2 Flow Rate 1.5 05/24/25 17:43 BMI result Body Mass Index 31.8 Objective Data Active Medications Acetaminophen (Acetaminophen 325 Mg Tablet) 650 mg PO Q6H PRN PRN Reason: Pain, Mild 1-3,fever,headache Atorvastatin Calcium (Atorvastatin Calcium 40 Mg Tablet) 40 mg PO BEDTIME [facility] Last Admin: 05/24/25 20:54 Dose: 40 mg Documented By: MAITE Belladonna Alkaloids/Opium (Opium/Belladonna 60/16.2 Mg Supp.Rect) 1 supp [place] Q8H PRN PRN Reason: bladder spasms Last Admin: 05/24/25 08:17 Dose: 1 supp Documented By: MARYJO Buspirone HCl (Buspirone Hcl 5 Mg Tablet) 5 mg PO BID [facility] Last Admin: 05/25/25 07:10 Dose: 5 mg Documented By: MARYJO Calcium Carbonate (Calcium Carbonate 750 Mg Tab.Chew) 750 mg PO Q4H PRN PRN Reason: Heartburn Gabapentin (Gabapentin 300 Mg Capsule) 300 mg PO BEDTIME [facility] Last Admin: 05/24/25 20:54 Dose: 300 mg Documented By: MAITE Hydromorphone HCl (Hydromorphone Hcl 1 Mg/Ml Syringe) 1 mg IVPUSH Q3H PRN; Protocol PRN Reason: Pain, Severe (Pain Scale 7-10) Last Admin: 05/24/25 14:08 Dose: 1 mg Documented By: JACQUE Hydroxyzine HCl (Hydroxyzine Hcl 25 Mg Tablet) 25 mg PO BID PRN PRN Reason: bladder spasms Last Admin: 05/24/25 04:20 Dose: 25 mg Documented By: CASTILAndrew Lactated Ringer's (Lr) 1,000 mls @ 80 mls/hr IVCONT .[id number] [facility] Last Admin: 05/25/25 05:18 Dose: 80 mls/hr Documented By: MAITE Magnesium Hydroxide (Milk Of Magnesia 30 Ml Oral.Susp) 30 ml PO DAILY PRN PRN Reason: Constipation Melatonin (Melatonin 3 Mg Tablet) 6 mg PO BEDTIME PRN PRN Reason: Insomnia Naloxone HCl (Naloxone Hcl 0.4 Mg/Ml Vial) 0.04 mg IVPUSH Q5M PRN PRN Reason: Excessive sedation or RR < 8 Ondansetron HCl (Ondansetron Hcl 4 Mg/2 Ml Vial) 4 mg IVPUSH Q8H PRN PRN Reason: Nausea and Vomiting Oxycodone HCl (Oxycodone Hcl Immed Release 5 Mg Tablet) 5 mg PO Q6H PRN PRN Reason: Pain, Moderate(Pain Scale 4-6) Last Admin: 05/24/25 12:29 Dose: 5 mg Documented By: MARYJO Phenazopyridine HCl (Phenazopyridine Hcl 200 Mg Tablet) 200 mg PO Q8H [facility] Stop: 05/26/25 02:10 Last Admin: 05/25/25 02:38 Dose: 200 mg Documented By: MAITE Sertraline HCl (Sertraline Hcl 50 Mg Tablet) 50 mg PO BEDTIME [facility] Last Admin: 05/24/25 20:54 Dose: 50 mg Documented By: MAIET Sodium Chloride (0.9 % Sodium Chloride Flush 3 Ml Syringe) 3 ml IVFLUSH QSHIFT [facility] Last Admin: 05/25/25 07:10 Dose: Not Given Documented By: MARYJO Non-Admin Reason: IV Running Labs 05/25/25 07:06 05/25/25 05:09 Labs: Laboratory Results - last 24 hr 05/25/25 05/25/25 05:09 07:06 MCV 90.2 MCH 31.5 MCHC 34.9 RDW 12.1 Plt Count 193 D MPV 8.7 L Absolute Nucleated RBC 0.000 Nucleated RBC % (auto) 0.0 Anion Gap 10 L Estim Creat Clear Calc 164.5 Estimated GFR > 60 Random Glucose 119 H Calcium 7.8 L D Microbiology Microbiology Results: Microbiology 05/23/25 20:26 Blood Culture - Preliminary Blood - Venous No growth after 24 hours. 05/23/25 20:26 Blood Culture - Preliminary Blood - Venous No growth after 24 hours. Assessment and Plan (1) Acute blood loss anemia: Status: Acute Plan Patient is a 45-year-old male with a past medical history significant for hyperlipidemia, depression and recent bladder tumor, s/p transurethral resection of bladder tumor yesterday who reported to the ED due to gross hematuria beginning around 11:00 today. gross hematuria/clots s/p transurethral resection of bladder tumor on 05/22/25 - ceftriaxone x1 per Dr Casiano - failed hand irrigation, then placed on CBI on 05/24-05/25; urine now clear, CBI stopped - hydroxyzine 25mg BID PRN bladder spasms and pyridium 200mg Q8H per Dr Casiano - urology consulted, underwent cyctoscopy fulgaration and clot evacuation 05/24 - monitor CBC and BMP - plan to monitor overnight for recurrent hematuria and pull Zapata tomorrow am for voiding trial Acute blood loss anemia - significant drop in hgb from 15.1-->7.4 - in the setting of acute bleeding from biopsy tissue - BP soft overnight and this mornin/55, 98/55 - will transfuse 1 unit PRBCs - follow H&H closely HLD - statin depression - buspirone, sertraline Full code VTE prophylaxis: Pneumoboots Patient requires continued hospitalization for due to acute blood loss anemia requiring transfusion in the setting of bleeding from biopsied sites in the bladder. Pt will be transfused 1 unit PRBCs and will be monitored for recurrent hematuria as well as additional drop in H&H. If patient's labs and urine are unremarkable tomorrow, he will be discharged home. Quality Stroke Does the patient have a stroke diagnosis?: No VTE Prior VTE?: No VTE Risk Level:: Medical - moderate - high VTE Device Contraindication: N/A - Device Ordered VTE Drug Contraindication: Treatment Not Indicated
--- NOTE | 2025-05-25 09:23 | HO.POSTANES ---
Post Anesthesia Evaluation Post Anesthesia Evaluation Date of Service: 05/25/25 Vital Signs: Vital Signs Temp Pulse Resp BP Pulse Ox O2 Del Method O2 Flow Rate 05/25/25 07:55 98.8 F 84 16 98/55 L 91 L Nasal Cannula 1.5 05/25/25 04:00 98.6 F 79 18 96/60 93 Room Air 05/24/25 23:44 100/60 05/24/25 23:27 98.0 F 82 18 90/55 L 96 Room Air Anesthesia: General Mental Status: Awake Pain Control: Satisfactory Nausea/Vomiting: None Hydration: Adequate Anesthesia-Related Issues: No Anes. Related Issues
--- NOTE | 2025-05-25 09:36 | PC.NURSE ---
CBI stopped at [address] Kodak Damon,morin is draining pyridium color clear urine,patient has no complaints
--- NOTE | 2025-05-25 13:43 | PC.NURSE ---
Blood transfusion completed,BPO low 86/47 on Right arm,92/48 on left arm ,pt feels tired,MARIE Junior notified
[2025-05-25 13:53] LABS: Appearance Urine Hazy; Glucose Urine UA Negative (Negative); PH 6.5 (5.0-9.0); Specific Gravity - Urine 1.020 (1.005-1.025); UMIC TRIGGER UACC YES
[2025-05-25] MEDS: Lactated Ringers 500 ML 999 ML IV (14:20)
--- NOTE | 2025-05-25 15:09 | PC.NURSE ---
No improvement in BP after bolus,BP 84/46 pulse 84 ,MARIE Junior notified
--- NOTE | 2025-05-25 15:12 | MHC.CM.PN ---
Per rounds, pt. is not ready to DC, he will have one more transfusion and be monitored, anticipate DC tomorrow. DCP: self care.
[2025-05-25] MEDS: Albumin Human 25 % 100 ML IV ×2 (15:33→21:32)
--- NOTE | 2025-05-25 18:15 | P.CDIM_ITS ---
PROVIDER RESPONSE TEXT: To clarify, the appropriate diagnosis supported by the clinical indicators: Acute blood loss anemia QUERY TEXT: PHYSICIAN'S DOCUMENTATION REQUEST Date of Query: 05/25/2025 11:39 AM EST Patient Name: Levar Daniels Admit Date: 05/24/2025 Dear Noel SALAZAR, A review of the medical record indicates additional documentation may be needed. Please review below and update the documentation accordingly. Clinical Indicators: H&H on 05/23/25: 15.1/43.8 H&H on 05/24/25: 11.5/32.6 patient with gross hematuria with clots s/p bladder tumor removal CBI s/p 05/24/25: Cystoscopy, Evacuation Bladder clots - Fulguration Based on the above, could you clarify which of the following is the most likely type of anemia you are evaluating, treating, and/or monitoring? Acute blood loss anemia Acute blood loss anemia with baseline chronic anemia (specify type) Anemia of chronic disease indicate if neoplastic disease, CKD, or other Chronic iron deficiency anemia due to blood loss Vitamin B12 deficiency anemia indicate etiology, such as intrinsic factor deficiency, malabsorption, transcobalamin II deficiency, dietary, etc Folate deficiency anemia indicate etiology, such as dietary, drug-induced, etc Protein deficiency anemia Other (explain) Clinically unable to determine (explain) Thank you, Josey North RN Use of terms such as suspected, likely, concern for, or probable (associated with a specific diagnosis that is being evaluated, monitored, or treated as if it exists) are acceptable and can be coded in the inpatient setting, when documented at the time of discharge. Please use your independent medical judgment in providing your response. THIS QUERY IS PART OF THE PERMANENT MEDICAL RECORD
[2025-05-26] VITALS (8 sets, daily range): BP systolic 90–114; BP diastolic 50–64; PULSE 70–95; RESP 17–18; TEMP 36.4–37.2; O2SAT 93–97
--- NOTE | 2025-05-26 03:44 | PC.NURSE ---
At 03:30 Pt's BP was 100/55. BPs have been trending soft. Since 05/25 he has since received 2 bags of albumin, one of those being from this RN. He is currently getting LR at 80mls/hr. MARIE Edwards notified via [place] text. Per MARIE Edwards, continue to monitor. No new orders at this time.
[2025-05-26] MEDS: Lactated Ringers 1,000 ML 80 ML IVCONT (05:29)
[2025-05-26 06:26] LABS: Hematocrit 21.4 % (42.0-52.0); Hemoglobin 7.3 g/dl (14.0-18.0); Mean Corpuscular HGB Conc 34.1 g/dl (31.0-36.0); Mean Corpuscular Hemoglobin 31.2 pg (27.0-33.0); Mean Corpuscular Volume 91.5 fL (80.0-98.0); NRBC Abs Auto 0.000 X10*3/uL (0.0-0.012); NRBC Pct Auto 0.0 /100WBC (0.0-0.2); Platelet Count 207 X10*3/uL (160-400); Red Blood Count 2.34 X10*6/uL (4.60-5.80); White Blood Count 8.5 X10*3/uL (4.8-10.8)
[2025-05-26 06:39] LABS: Anion Gap 11 (12-20); Blood Urea Nitrogen 14 mg/dL (9-16); Calcium 8.2 mg/dL (8.4-10.2); Carbon Dioxide 28 mmol/L (22-29); Chloride 108 mmol/L (96-108); Creatinine Clr Calc Pharmacy 161.9; Estimated Glomerular Filt Rate > 60; Potassium 3.9 mmol/L (3.3-5.1); Sodium 143 mmol/L (135-145)
--- NOTE | 2025-05-26 07:24 | PC.NURSE ---
This RN attempted to d/c 3-way morin at 6am, per doctor's order. This RN was able to draw 22cc from the 35cc balloon, not able to draw any more. Morin was partially removed, but then got stuck. Charge nurse and nursing intelligence group supervisor notified and came to the bedside. Dr. Fuentes notified via [place] text. Per MD, the port to the balloon was cut with scissors, patient stood up, and morin was removed successfully. Due to void at 13:00.
--- NOTE | 2025-05-26 09:09 | PM.UROPN ---
Subjective Subjective Date of Service: 05/26/25 Interval history: Gross hematuria post TURBT, s/p fulguration, and clot evacuation. Morin removed. Patient voiding. Physical Exam Vital Signs: Vital Signs: Last Vital Signs Temp 97.5 F 05/26/25 07:30 Pulse 70 05/26/25 07:30 Resp 18 05/26/25 07:30 BP 90/54 L 05/26/25 07:30 Pulse Ox 96 05/26/25 07:30 O2 Del Method Room Air 05/26/25 07:30 O2 Flow Rate 1.5 05/25/25 07:55 BMI result Body Mass Index 31.8 Urology Results Labs 05/26/25 05:26 05/26/25 05:26 Labs: Laboratory Results - last 24 hr 05/25/25 05/25/25 05/26/25 08:13 13:06 05:26 WBC 8.5 RBC 2.34 L Hgb 7.3 L Hct 21.4 L MCV 91.5 MCH 31.2 MCHC 34.1 RDW 12.2 Plt Count 207 MPV 8.9 L Absolute Nucleated RBC 0.000 Nucleated RBC % (auto) 0.0 Sodium 143 Potassium 3.9 Chloride 108 Carbon Dioxide 28 Anion Gap 11 L BUN 14 Creatinine 0.63 Estim Creat Clear Calc 161.9 Estimated GFR > 60 Random Glucose 101 Calcium 8.2 L Urine Color [place] Urine Appearance Hazy Urine pH 6.5 Ur Specific [place] 1.020 Urine Protein See Note Urine Glucose (UA) Negative Urine Ketones See Note Urine Blood Large (3+) H Urine Nitrite See Note Ur Leukocyte Esterase See Note Urine RBC >20 H Urine WBC 0-5 Ur Squamous Epith Cells 0-2 Urine Bacteria None Seen Hyaline Casts 0-2 Blood Type O Positive Antibody Screen NEGATIVE Crossmatch See Detail Progress Note: A&P Assessment and plan (1) Hematuria: Status: Acute Plan S/P Fulguration, pt voiding post morin catheter removal, pyridium 100 mg prn dysuria. pt has follow up scheduled with urology office stable for discharge from standpoint. Time Spent With Patient Time: Total time managing care of this patient today ____ minutes. Progress Note: Quality Stroke Does the patient have a stroke diagnosis?: No
--- NOTE | 2025-05-26 11:06 | PC.NURSE ---
Pt voiding in urinal, no blood noted.
--- NOTE | 2025-05-26 14:02 | P.DS_ITS ---
DS: Providers Provider Date of Service: 05/26/25 Date of admission: 05/23/25 20:36 Date of discharge: 05/26/25 Primary care physician: Rony Santiago [facility]- Consults: 05/23/25 20:55 Consult to Urology Routine Consulting Provider: Alicia Santacruz Reason for consultation: hematuria s/p bladder tumor removal Has provider been notified: Yes DS: Diagnosis Discharge Diagnosis (1) Hematuria: Status: Acute DS: Summary Hospital Course Hospital Course: From admission HPI: Date of Service: 05/23/25 Attending physician on admission: Alessio Saenz Chief Complaint: hematuria Patient is a 45-year-old male with a past medical history significant for hyperlipidemia, depression and recent bladder tumor, s/p transurethral resection of bladder tumor yesterday who reported to the ED due to gross hematuria beginning around 11:00 today. Prior to this the Zapata was draining yellow. The patient called Urology who stated in the blood was normal. He has developed se mary lower abdominal pain and Zapata is no longer draining. ED provider spoke with Dr. Casiano who recommends hand irrigation only, no CBI as patient is postop day 1 from tumor removal. She also recommended a 1 time dose of ceftriaxone and admit to medical service with gentle hydration and urology consult in the morning. Hospital course: Pt was admitted to the hospital after experiencing gross hematuria with clots and significant abdominal pain that occurred 1 day after trans urethral resection bladder tumor on 05/22/2025. Pt had Zapata catheter placed and was initially started on hand irrigation due to recent procedure. However, nursing had to irrigate every 15-20 minutes and Urology was called in to start on CBI. Pt also was given empiric IV antibiotics, though ultimately UA was negative for UTI. Pt underwent successful cystoscopy fulguration and clot evaluation on 05/[address] Santacruz. CBI was subsequently stopped and pt had no repeat episodes of bleeding. Hospital course was complicated by acute blood loss anemia with hemoglobin as low as 7.4. Pt was transfused 1 unit PRBCs as he also had soft BP. H&H the following day did not show significant improvement, but pt felt well and wished to be discharged home; denied any lightheadedness or dizziness. BP initially soft, but then was normotensive by time of discharge. Pt will contact his PCP to arrange for outpatient labs on Wednesday or Wednesday to evaluate H&H for appropriate resolution of acute blood loss anemia. Pt should also follow up with Urology 1-2 weeks for both biopsy results as well as postsurgical monitoring. Pt knows that he should return to the hospital should hematuria return or he experiences lightheadedness/dizziness with standing or position changes. Pt should continue all of his other home medications. Time Attestation Discharge Coordination Time (in mins): 37 Quality: Safe Use of Opioids Does Pt have an Active Cancer Diagnosis on the Problem List?: No Quality: Stroke Does the patient have a stroke diagnosis?: No Physical Exam Exam: Exam: General: AOx3, no acute distress Resp: CTA bilaterally CVS: S1, S2, RRR GI: +BS, NT, no distention Skin: Warm, dry Neuro: Cranial nerves II-XII grossly intact bilaterally. Motor grossly intact bilaterally Extremities: No edema Psych: Appropriate affect Vital Signs: Vital Signs: Last Vital Signs Temp 98.1 F 05/26/25 11:42 Pulse 71 05/26/25 11:42 Resp 18 05/26/25 11:42 BP 114/64 05/26/25 13:24 Pulse Ox 97 05/26/25 11:42 O2 Del Method Room Air 05/26/25 11:42 O2 Flow Rate 1.5 05/25/25 07:55 BMI result Body Mass Index 31.8 DS: Data Data Completed and Pending Labs on day of discharge: Laboratory Results - last 24 hr 05/25/25 05/26/25 08:13 05:26 WBC 8.5 RBC 2.34 L Hgb 7.3 L Hct 21.4 L MCV 91.5 MCH 31.2 MCHC 34.1 RDW 12.2 Plt Count 207 MPV 8.9 L Absolute Nucleated RBC 0.000 Nucleated RBC % (auto) 0.0 Sodium 143 Potassium 3.9 Chloride 108 Carbon Dioxide 28 Anion Gap 11 L BUN 14 Creatinine 0.63 Estim Creat Clear Calc 161.9 Estimated GFR > 60 Random Glucose 101 Calcium 8.2 L Crossmatch See Detail Preliminary micro results at discharge 05/23/25 20:26 Blood Culture - Preliminary Blood - Venous No growth after 48 hours. 05/23/25 20:26 Blood Culture - Preliminary Blood - Venous No growth after 48 hours. Discharge Plan Discharge Anticipated Discharge Date/Time: 05/26/25 14:03 Patient Disposition: Home, Self-Care Discharge Diagnosis: Acute blood loss anemia Referrals: Alicia Santacruz MD [Physician, Urology] - 1 Week Referral Note: F/U for cystoscopy with fulguration and clot evacuation Rony Santiago, [employer] [Primary Care Provider, Internal Medicine] - 1 Week Discharge Medications: Continued atorvastatin 40 mg tablet 40 mg PO BEDTIME 90 Days Qty: 90 1RF gabapentin 300 mg capsule 300 mg PO BEDTIME Qty: 30 3RF buspirone 5 mg tablet 5 mg PO BID Qty: 180 1RF cyclobenzaprine 10 mg tablet 10 mg PO BEDTIME PRN (Reason: muscle spasm) 30 Days Qty: 30 0RF oxycodone 5 mg tablet 5 mg PO .[id number] PRN (Reason: pain) Qty: 10 0RF Rx Instructions: Partial Fill upon patient request. sertraline 50 mg tablet 50 mg PO BEDTIME Discharge Orders: Discharge Order (Routine); Ordered 05/26/25 Ordered By: Noel Junior Activity on Discharge: As tolerated Stand Alone Forms: Patient Portal Discharge page Print Language: Polish Care Plan Goals: See below Health Concerns: Acute blood loss anemia Gross hematuria with clots Bleeding from the bladder Hypotension Plan of Treatment: You were admitted to the hospital after experiencing gross hematuria with clots that occurred after trans urethral resection of bladder tumor on 05/22/2025. You were treated with empiric IV antibiotics, IV fluids, and eventually placed on continuous bladder irrigation. You were seen and evaluated by Dr. Susan Casiano in Urology and underwent cystoscopy fulguration and clot evacuation on 05/24. The following day you were noted to have a soft blood pressure and a significant drop in your hemoglobin from 15.1 to 7.4 and you were transfused 1 unit of packed red blood cells. Today you were hemoglobin and hematocrit are stable, though not significantly improved from prior. You have had no repeat bleeding and currently do not have any acute medical complaints, including lightheadedness or dizziness. Your pain has been well-controlled and overall you feel well and ready for discharge home. You will need to have repeat blood level labs drawn early next week to monitor resolution of your anemia. You were treated with empiric antibiotics, though your urine was ultimately negative for UTI and you do not need to continue antibiotics at this time. -- repeat labs on Wednesday or Wednesday next week to ensure resolution of acute anemia. Contact your PCP in order to arrange for these labs. -- follow up with Dr. Santacruz in Urology in 1-2 weeks for biopsy results as well as postsurgical monitoring. -- return to the ED if you notice blood in your urine or if you feel lightheaded and dizzy with standing/position changes. Assessment: See discharge summary
--- NOTE | 2025-05-26 14:55 | MHC.CM.PN ---
nv home self care
== END 2025-05-26 15:35 | disposition home or self-care (01) | DRG 908 ==
LOC: HO.ED 20:22 → HO.EDOVER 20:41 → HO.S3 22:50
PROVIDERS: Physician Assistant; Urology; Admitting Provider Physician Assistant; Emergency Provider Emergency Medicine; PCP Nurse Practitioner Family; Visit Provider Student in an Organized Health Care Education/Training Program
PROC: 0T5B8ZZ Destruction of Bladder, Via Natural or Artificial Opening Endoscopic (ICD-10-PCS; principal; 2025-05-24 14:30)
DX: N99.820 Postprocedural hemorrhage of a genitourinary system organ or structure following a genitourinary system procedure (principal); D62 Acute posthemorrhagic anemia; Y83.8 Other surgical procedures as the cause of abnormal reaction of the patient, or of later complication, without mention of misadventure at the time of the procedure; E78.5 Hyperlipidemia, unspecified; F32.A Depression, unspecified; R31.0 Gross hematuria; F17.210 Nicotine dependence, cigarettes, uncomplicated; Z71.6 Tobacco abuse counseling; Z79.899 Other long term (current) drug therapy
CPT/HCPCS: 36415; 80048; 80076; 81001; 83605; 85025; 85027; 85610; 86850; 86900; 86901; 86923; 87040; 99285; J0690; J0696; J1100; J1171; J2003; J2250; J2405; J2704; J3010; J7120; P9016; P9047

== ENCOUNTER → 2025-05-23 20:36 | Outpatient (BNV) | payer OTHER, SELFPAY | PROVIDERS: Admitting Provider Physician Assistant; Emergency Provider Emergency Medicine; PCP Nurse Practitioner Family; Visit Provider Urology | DX: R31.0 Gross hematuria (principal); N99.820 Postprocedural hemorrhage of a genitourinary system organ or structure following a genitourinary system procedure | CPT/HCPCS: 52001; 52214; 99232 ==

== ENCOUNTER → 2025-05-23 20:36 | Outpatient (BNV) | payer OTHER, SELFPAY | PROVIDERS: Admitting Provider Physician Assistant; Emergency Provider Emergency Medicine; PCP Nurse Practitioner Family; Visit Provider Student in an Organized Health Care Education/Training Program | DX: R31.0 Gross hematuria (principal); Z98.890 Other specified postprocedural states; Z86.03 Personal history of neoplasm of uncertain behavior | CPT/HCPCS: 99222; 99233 ==

== ENCOUNTER 2025-05-27 23:26 | Emergency (ER) | payer OTHER, SELFPAY ==
[2025-05-27 23:37] VITALS: BP 109/62; PULSE 75; RESP 16; TEMP 36.8; O2SAT 97; BMI 28.8
[2025-05-28 00:05] LABS: MANUAL DIFF FLAG NO
[2025-05-28 00:06] LABS: Hematocrit 24.5 % (42.0-52.0); Hemoglobin 8.6 g/dl (14.0-18.0); Imm Gran Abs Auto 0.05 X10*3/uL (0.00-0.03); Imm Gran Pct Auto 0.5 % (0.0-0.4); Lymphocytes Absolute Auto 2.2 X10*3/uL (1.2-4.9); Mean Corpuscular HGB Conc 35.1 g/dl (31.0-36.0); Mean Corpuscular Hemoglobin 31.4 pg (27.0-33.0); Mean Corpuscular Volume 89.4 fL (80.0-98.0); NRBC Abs Auto 0.020 X10*3/uL (0.0-0.012); NRBC Pct Auto 0.2 /100WBC (0.0-0.2); Platelet Count 267 X10*3/uL (160-400); Red Blood Count 2.74 X10*6/uL (4.60-5.80); White Blood Count 9.4 X10*3/uL (4.8-10.8)
[2025-05-28 00:07] LABS: Appearance Urine Clear; Glucose Urine UA Negative (Negative); PH 7.0 (5.0-9.0); Specific Gravity - Urine 1.010 (1.005-1.025); UMIC TRIGGER UACC YES
--- NOTE | 2025-05-28 00:07 | ED.MALEGU ---
HPI - Male Genitourinary General Chief complaint: Urogenital-Male Stated complaint: genital pain Time Seen by Provider: 05/28/25 00:07 History of Present Illness ED Provider: Rafael Duke MD HPI Narrative: 45-year-old male with recent transurethral bladder resection he subsequently had hematuria and had cystoscopy with fulguration. He is not experiencing hematuria but has significant burning dysuria felt there was some discomfort of the scrotum but no redness or swelling of the testicles. No pyuria. No flank pain Related Data Home Medications ?Medication ?Instructions ?Recorded ?Confirmed sertraline 50 mg tablet 50 mg PO BEDTIME 05/23/25 05/23/25 Previous Rx's ?Medication ?Instructions ?Recorded atorvastatin 40 mg tablet 40 mg PO BEDTIME 90 days #90 tabs 03/27/25 gabapentin 300 mg capsule 300 mg PO BEDTIME #30 caps 04/30/25 buspirone 5 mg tablet 5 mg PO BID #180 tabs 05/14/25 cyclobenzaprine 10 mg tablet 10 mg PO BEDTIME PRN muscle spasm 05/22/25 30 days #30 tabs oxycodone 5 mg tablet 5 mg PO .[id number] PRN pain #10 tabs 05/22/25 ciprofloxacin HCl 500 mg tablet 500 mg PO BID 7 days #14 tabs 05/28/25 (Cipro) phenazopyridine 200 mg tablet 200 mg PO TID 6 doses #6 tabs 05/28/25 (Pyridium) Allergies Allergy/AdvReac Type Severity Reaction Status Date / Time aspirin Allergy Severe Unknown Verified 05/27/25 23:44 [facility] Past Medical History Medical History Bladder tumor Tubular adenoma of colon Dyslipidemia Fatty liver Lung nodule Elevated liver enzymes Chronic left ear pain Thrombosed external hemorrhoid Depression Surgical History History of bladder surgery History of back surgery Social History Social History Household Members: Family Housing: House Are you a primary healthcare administration internship to a significant other at home: No Do you presently have visiting nurse or other home services: No Patient Tobacco Use Status: Current everyday Tobacco user Tobacco use type: Cigarette Cigarette Packs Per Day: 1.5 Cigarettes Per Day: 30.0 Years Smoked: started around age 16, 1PPD e-Cigarette/Vaping Use: Never Used Second Hand Smoke Exposure: No Advance Directives: No Advance Directives Information Provided: No Do you have a plan to hurt others: No Plan service: No Current occupational status: employed Current occupation: [employer] Current occupational exposures/hazards: No Cognitive needs: No Hearing needs: No Vision needs: No Physical Exam Exam: Exam: EXAM: Gen: Alert, awake, well appearing, well hydrated. Head: Atraumatic Eyes: Anicteric, Normal conjunctiva. ENT: Moist mucosa, no pallor. ? Neck: Supple. Skin: ?No observable rash or bruising on exposed or examined skin Respiratory: Breathing comfortably, No distress.Clear to auscultation bilaterally, symmetric chest expansion, No wheeze, rales, ronchi. Cardiovascular: Regular rate and rhythm. No murmurs or rub. Well perfused periphery, warm extremities. No edema. ? Abdominal: No focal tenderness. Soft, no objective distension. No palpable masses or obvious organomegaly. ?No guarding, no rebound tenderness or other peritoneal findings. : No flank tenderness. No suprapubic tenderness or fullness. Penile shaft glans and meatus unremarkable. No erythema swelling or tenderness of the scrotum or testicles Neuro: Alert. Gross movement of all extremities intact. ? Psych: Calm. Cooperative. MSK: No grossly visible deformity. Vital signs: See flowsheet Vital Signs: Vital Signs: Last Vital Signs Temp 98.2 F 05/28/25 00:59 Pulse 75 05/28/25 00:59 Resp 16 05/28/25 00:59 BP 109/62 05/28/25 00:59 Pulse Ox 97 05/28/25 00:59 O2 Del Method Room Air 05/28/25 00:59 BMI result Body Mass Index 28.8 Medications Administered Discontinued Medications Generic Name Dose Route Start Last Admin Trade Name Moyq PRN Reason Stop Dose Admin Levofloxacin 500 mg 05/28/25 00:36 05/28/25 00:40 Levofloxacin 500 Mg Tablet PO 05/28/25 00:37 500 mg ONCE ONE Administration Lidocaine HCl 10 ml 05/28/25 00:25 05/28/25 00:39 Lidocaine Hcl 2 % Urojet 10 Ml Jel.Pf.Starla TOPICAL 05/28/25 00:26 10 ml ONCE ONE Administration Phenazopyridine HCl 200 mg 05/28/25 00:25 05/28/25 00:37 Phenazopyridine Hcl 200 Mg Tablet PO 05/28/25 00:26 200 mg ONCE ONE Administration Medical Decision Making Medical Decision Making MDM Narrative: Medical Decision Making: Burning dysuria status post transurethral bladder resection Given the significant burning dysuria and elevated whites in the urine I suspect a UTI post procedural/instrumentation. No fever or sepsis criteria. Bladder ultrasound unremarkable external genitalia unremarkable no pyuria no testicle swelling or tenderness Pyridium and Cipro urology follow up Preliminary Favored Differential Diagnosis: UTI, post procedural urethritis/inflammation among additional considered etiologies Testing Interpreted Independently: ?See below for details Radiology or Lab testing Results Reviewed: ?See below for details Consults: ?See below for details Independent Historians/External Chart Reviews: ?See below for details Social Determinants of Health Impacting MDM/Planning: ?See below for details Lab Data MDM Lab Attestation statement: I reviewed the patient's lab results. 05/28/25 00:01 05/28/25 00:01 Labs: Lab Results 05/27/25 05/28/25 Range/Units 23:59 00:01 WBC 9.4 (4.8-10.8) X10*3/uL RBC 2.74 L (4.60-5.80) X10*6/uL Hgb 8.6 L (14.0-18.0) g/dl Hct 24.5 L (42.0-52.0) % MCV 89.4 (80.0-98.0) fL MCH 31.4 (27.0-33.0) pg MCHC 35.1 (31.0-36.0) g/dl RDW 12.1 (11.0-16.0) % Plt Count 267 D (160-400) X10*3/uL MPV 8.0 L (9.4-12.4) fL Immature Gran % (Auto) 0.5 H (0.0-0.4) % Neut % (Auto) 65.6 (45-73) % Lymph % (Auto) 23.4 (20-40) % [place] % (Auto) 7.3 (2-11) % Eos % (Auto) 2.7 (0-4) % Baso % (Auto) 0.5 (0-2) % Lymph # (Auto) 2.2 (1.2-4.9) X10*3/uL [place] # (Auto) 0.7 (0.1-1.2) X10*3/uL Eos # (Auto) 0.3 (0.0-0.4) X10*3/uL Baso # (Auto) 0.1 (0.0-0.2) X10*3/uL Abs Immat Gran (auto) 0.05 H (0.00-0.03) X10*3/uL Absolute Neuts (auto) 6.2 (2.0-8.3) x10*3/uL Absolute Nucleated RBC 0.020 H (0.0-0.012) X10*3/uL Nucleated RBC % (auto) 0.2 (0.0-0.2) /100WBC Sodium 140 (135-145) mmol/L Potassium 3.5 (3.3-5.1) mmol/L Chloride 106 (96-108) mmol/L Carbon Dioxide 24 (22-29) mmol/L Anion Gap 14 (12-20) BUN 15 (9-16) mg/dL Creatinine 0.67 (0.5-1.4) mg/dL Estim Creat Clear Calc 145.2 Estimated GFR > 60 Random Glucose 110 (60-115) mg/dL Calcium 8.7 D (8.4-10.2) mg/dL Total Bilirubin 0.8 (0.0-1.0) mg/dL AST 25 (5-37) U/L ALT 29 (0-40) U/L Alkaline Phosphatase 90 (39-117) U/L Total Protein 6.5 (6.5-8.0) g/dL Albumin 4.3 (3.5-5.0) g/dL Urine Color Yellow Urine Appearance Clear Urine pH 7.0 (5.0-9.0) Ur Specific [place] 1.010 (1.005-1.025) Urine Protein 30 (1+) H (Neg-Trace) mg/dL Urine Glucose (UA) Negative (Negative) mg/dL Urine Ketones Negative (Negative) mg/dL Urine Blood Moderate (2+) H (Negative) Urine Nitrite Negative (Negative) Ur Leukocyte Esterase Small (1+) H (Negative) Urine RBC 6-10 H (0-2) /HPF Urine WBC 11-20 H (0-5) /HPF Ur Squamous Epith Cells 0-2 (0-2) /HPF Urine Bacteria None Seen (None Seen) Hyaline Casts 0-2 (0-2) /LPF Discharge Plan Discharge Clinical Impression: Dysuria Patient Disposition: Home, Self-Care Additional Instructions: You were evaluated for burning with urination after a bladder tumor resection and clot irrigation recently. We have prescribed you Pyridium and medication to take 3 times a day as prescribed for the next 2 days to decrease burning sensation with urination. Drink plenty of fluid to dilute your urine. You will expect the medication to change your urine orange color do not be alarmed by this. You probably have developed a urinary tract infection we will start antibiotics call your urologist Prescriptions: New phenazopyridine [Pyridium] 200 mg tablet 200 mg PO TID Qty: 6 0RF ciprofloxacin HCl [Cipro] 500 mg tablet 500 mg PO BID 7 Days Qty: 14 0RF No Action atorvastatin 40 mg tablet 40 mg PO BEDTIME 90 Days Qty: 90 1RF gabapentin 300 mg capsule 300 mg PO BEDTIME Qty: 30 3RF buspirone 5 mg tablet 5 mg PO BID Qty: 180 1RF cyclobenzaprine 10 mg tablet 10 mg PO BEDTIME PRN (Reason: muscle spasm) 30 Days Qty: 30 0RF oxycodone 5 mg tablet 5 mg PO .[id number] PRN (Reason: pain) Qty: 10 0RF Rx Instructions: Partial Fill upon patient request. sertraline 50 mg tablet 50 mg PO BEDTIME Interventions: ED Discharge Assessment Last Done: 05/28/25 00:59 Discharge Date/Time: 05/28/25 01:02 Print Language: Congolese
--- OUTSIDE RECORDS SUMMARY | 2025-05-28 00:15 | XMS_ITS | Data Portability ---
Author Organization [place] - [facility], Allergy Address [address] [address] Care Team Providers Care Aviation All Source Intelligence Name Role Phone CHRISSYEMILY PINK Primary Care Provider [phone] Assessment Encounter Date Assessment Date Assessment LastModified [...] %-0.1 % eye drops,susp ension 2024 025 [facility]/Pharmacy #1972, [address] [facility], [place], [address], 5 14:29:04 Patient TargetsNo targets recorded. Patient InstructionsNo instructions recorded. Reason for Referral None Reported. Problems Name Problem SNOMED Code Status Onset Date Resolution Date Notes Provider Name and Address Organization Details Recorded Time Sensorine ural hearing loss of bilateral ears 579972005 Active 2022 Sensorineu ral hearing loss, bilateral; Note: Date Diagnosed: 07/27/2022 3:01 PM (H90.3) Not Available [facility] 4 03:19:02 Itching of skin 652777374 Active 2022 Pruritus, unspecifie d; Note: Date Diagnosed: 08/03/2022 12:44 PM (L29.9) Not Available [facility] 4 03:19:03 Granulati ons on tympanic membrane 462131072 Active 2024 ANGIE LAWSON PA-C [address] [place] [address], [place], [address] , [place] - [facility] 5 14:28:05 Problem Notes None recorded. [...] topical solution 2022 active Medicatio n ID: [id number] Du ration Value: 14 Brand Name: clotrimaz ole Send Method: E-Prescri bed Subs Allowed: subs OK Specia l Instructi on: 4 drops to affected ear two times a day X 14 days [facility] ericName: clotrimaz ole Not Available Not [...] BY GASTROENT EROLOGY DEPARTMEN T AT [facility] active Not Available Not Available No t Available Anoro Ellipta 62.5 mcg-25 mcg/actuat ion powder for inhalation INHALE 1 PUFF DAILY active Not Available Not Available No t Available Vitals Date Recorded Body height Body mass index (BMI) Body weight Provider Name and Address Organization Details Last Updated DateTime 07/20/2024 172.72 cm 28.9 kg/m2 10070.55 g Codi Green [place] - [facility] 07/20/2024 09:25:48 Social History None recorded. Functional Status None recorded. Mental Status None recorded. Family History Nothing Reported. Medical History No medical history recorded. Past Encounters Encounter ID Performer Location Encounter Start Date Encounter Closed Date Diagnosis/Indication Diagnosis SNOMED-CT Code Diagnosis ICD10 Code Diagnosis IMO Codes Diagnosis Note [id number] ANGIE LAWSON PA-C [facility] [address] [address] 07/07/2024 13:49:21 07/07/2024 15:13:10 Itching of skin 647231504 L29.9 Sensorineu ral hearing loss of bilateral ears 930766256 H90.3 Granulatio ns on tympanic membrane 914335658 H73.899 left [id number] ANGIE LAWSON PA-C [facility] [address] [address] 07/20/2024 09:14:26 07/20/2024 09:36:26 Granulations on tympanic membrane 146406080 H73.899 left Health Concerns Section Related Observation LastModified by Organization Detai ls LastModified Time None Recorded Concern Status LastModified by Organization Details LastModified Time None Recorded Advance Directives Directive None Recorded Payers Insurance Date Sequence Insurance Name Policy Number Policy Crockett Covered Member ID Crockett Member ID Guarantor Name 03/21/2025 1 [facility] - DOS ON OR AFTER 2022 - ONE CARE (MEDICARE REPLACEMENT/ADV ANTAGE - HMO) Reshat Arifi [id number] Reshat Arifi Notes Date Note Type Note Provider Name and Address Organization Details Recorded Time 07/07/2024 text/html ROS as noted in the [facility] 44-year-old male presents for evaluation of the ears. He reports left otalgia for 1 month that improved with unknown otologic drops. He reports left ear pruritus for one year. He has a history of a low-grade fungal ear infection one year ago. He denies history of eczema or psoriasis. Smoker. NIDIA OCHOA MD [address] [place] [address], [phone], [facility] 07/08/2024 08:25:39 07/20/2024 text/html ROS as noted in the [facility] 44-year-old male presents for reevaluation of the ears. He reports symptoms resolved with topical TobraDex. Hearing is at baseline. No new concerns. TYLOR MAHONEY MD [address] [place] [address], [phone], [facility] 07/20/2024 17:14:21
[2025-05-28 00:20] LABS: Alanine Aminotransferase 29 U/L (0-40); Albumin Level 4.3 g/dL (3.5-5.0); Alkaline Phosphatase 90 U/L (39-117); Anion Gap 14 (12-20); Aspartate Amino Transferase 25 U/L (5-37); Blood Urea Nitrogen 15 mg/dL (9-16); Calcium 8.7 mg/dL (8.4-10.2); Carbon Dioxide 24 mmol/L (22-29); Chloride 106 mmol/L (96-108); Creatinine Clr Calc Pharmacy 145.2; Estimated Glomerular Filt Rate > 60; Potassium 3.5 mmol/L (3.3-5.1); Sodium 140 mmol/L (135-145); Total Protein 6.5 g/dL (6.5-8.0)
[2025-05-28 00:28] LABS: UACC Culture Trigger YES
[2025-05-28] MEDS: Lidocaine HCl 2 % Urojet 10 ML JEL.PF.APP TOPICAL (00:39)
[2025-05-28 00:59] VITALS: BP 109/62; PULSE 75; RESP 16; TEMP 36.8; O2SAT 97
== END 2025-05-28 01:02 | disposition home or self-care (01) ==
PROVIDERS: Emergency Provider Emergency Medicine; PCP Nurse Practitioner Family
DX: N50.82 Scrotal pain (principal); R30.0 Dysuria; R31.9 Hematuria, unspecified; Z79.899 Other long term (current) drug therapy; F17.210 Nicotine dependence, cigarettes, uncomplicated
CPT/HCPCS: 36415; 80053; 81001; 85025; 87086; 99283

== ENCOUNTER 2025-05-29 09:24 | Outpatient (REF) | payer OTHER, SELFPAY ==
[2025-05-29 10:09] LABS: Appearance Urine Clear; Glucose Urine UA Negative (Negative); PH 5.5 (5.0-9.0); Specific Gravity - Urine 1.015 (1.005-1.025); UMIC TRIGGER UACC YES
[2025-05-29 10:21] LABS: MANUAL DIFF FLAG NO
[2025-05-29 10:22] LABS: UACC Culture Trigger YES
[2025-05-29 10:25] LABS: Hematocrit 27.9 % (42.0-52.0); Hemoglobin 9.3 g/dl (14.0-18.0); Imm Gran Abs Auto 0.05 X10*3/uL (0.00-0.03); Imm Gran Pct Auto 0.6 % (0.0-0.4); Lymphocytes Absolute Auto 2.3 X10*3/uL (1.2-4.9); Mean Corpuscular HGB Conc 33.3 g/dl (31.0-36.0); Mean Corpuscular Hemoglobin 30.5 pg (27.0-33.0); Mean Corpuscular Volume 91.5 fL (80.0-98.0); NRBC Abs Auto 0.000 X10*3/uL (0.0-0.012); NRBC Pct Auto 0.0 /100WBC (0.0-0.2); Platelet Count 378 X10*3/uL (160-400); Red Blood Count 3.05 X10*6/uL (4.60-5.80); White Blood Count 8.5 X10*3/uL (4.8-10.8)
--- OUTSIDE RECORDS SUMMARY | 2025-05-29 10:43 | XMS_ITS | Clinical Summary ---
Author Organization [facility] ity Address [address] [place] [address] Care Team Providers Care Attorney Law Clerk Name Role Phone Unavailable Primary Care Provider [...] Depression Screening 07/05/2024 COVID-19 Vaccine (1 - 2024-2 6 season) 2025 Influenza Vaccine (#1) 2025 RSV [...]
[2025-05-29 11:04] LABS: Alanine Aminotransferase 31 U/L (0-40); Albumin Level 4.5 g/dL (3.5-5.0); Alkaline Phosphatase 97 U/L (39-117); Anion Gap 9 (12-20); Aspartate Amino Transferase 22 U/L (5-37); Blood Urea Nitrogen 19 mg/dL (9-16); Calcium 9.2 mg/dL (8.4-10.2); Carbon Dioxide 27 mmol/L (22-29); Chloride 108 mmol/L (96-108); Cholesterol 121 mg/dL (<200); Estimated Glomerular Filt Rate > 60; HDL Cholesterol 38 mg/dL (>40); Potassium 4.0 mmol/L (3.3-5.1); Sodium 140 mmol/L (135-145); Total Protein 6.8 g/dL (6.5-8.0); Triglycerides 95 mg/dL (<150)
== END 2025-05-29 09:25 | disposition home or self-care (01) ==
LOC: HO.HMGCLDS 09:24
PROVIDERS: PCP Nurse Practitioner Family; Visit Provider Nurse Practitioner Family
DX: R91.1 Solitary pulmonary nodule (principal); E78.5 Hyperlipidemia, unspecified; F17.200 Nicotine dependence, unspecified, uncomplicated; R31.29 Other microscopic hematuria; R91.8 Other nonspecific abnormal finding of lung field
CPT/HCPCS: 36415; 80053; 80061; 81001; 81003; 84443; 85025; 87086

== ENCOUNTER 2025-05-29 22:51 | Emergency (ER) | payer OTHER, SELFPAY ==
[2025-05-29 23:06] VITALS: BP 122/69; PULSE 96; RESP 24; TEMP 36.6; O2SAT 99; BMI 28.2
--- NOTE | 2025-05-29 23:21 | ED.MALEGU ---
HPI - Male Genitourinary General Chief complaint: Urogenital-Male Stated complaint: Unable to urinate Time Seen by Provider: 05/29/25 23:14 Source: patient and family Mode of arrival: ambulatory Limitations: no limitations History of Present Illness ED Provider: Dr. Willow Dewitt HPI Narrative: Patient comes to the emergency room complaining of urinary retention. Patient states that he has not been able to urinate for at least 3 hours. Patient complaining of severe abdominal pain due to the urinary retention. Patient states that he recently was diagnosed with a bladder mass, patient is status post fulguration. Patient was seen here yesterday for dysuria. Patient was diagnosed with a UTI, patient was given Pyridium and ciprofloxacin. Patient states that yesterday he took an oxycodone for pain. Related Data Home Medications ?Medication ?Instructions ?Recorded ?Confirmed sertraline 50 mg tablet 50 mg PO BEDTIME 05/23/25 05/29/25 Previous Rx's ?Medication ?Instructions ?Recorded atorvastatin 40 mg tablet 40 mg PO BEDTIME 90 days #90 tabs 03/27/25 gabapentin 300 mg capsule 300 mg PO BEDTIME #30 caps 04/30/25 buspirone 5 mg tablet 5 mg PO BID #180 tabs 05/14/25 cyclobenzaprine 10 mg tablet 10 mg PO BEDTIME PRN muscle spasm 05/22/25 30 days #30 tabs oxycodone 5 mg tablet 5 mg PO .[id number]-[id number] PRN pain #10 tabs 05/22/25 ciprofloxacin HCl 500 mg tablet 500 mg PO BID 7 days #14 tabs 05/28/25 (Cipro) phenazopyridine 200 mg tablet 200 mg PO TID 6 doses #6 tabs 05/28/25 (Pyridium) Allergies Allergy/AdvReac Type Severity Reaction Status Date / Time aspirin Allergy Severe Unknown Verified 05/29/25 23:09 Review of Systems Review of Systems: Constitutional : No Weight loss, No Fever, No Chills, No Night Sweats, No Fatigue, No Malaise ENT/Mouth : No Hearing loss, No Ear Pain, No Nasal Congestion, No Sinus Pain, No Hoarseness, No sore throat, No Rhinorrhea, No Swallowing Difficulty Eyes: No Eye Pain, No Swelling, No Redness, No Foreign Body, No Discharge, No Vision Changes Cardiovascular : No Chest Pain, No SOB, No Dyspnea on Exertion, No Orthopnea, No Edema, No Palpitations Respiratory : No Cough, No Sputum, No Wheezing, No Smoke Exposure, No Dyspnea Gastrointestinal : No Nausea, No Vomiting, No Diarrhea, No Constipation, No abdominal Pain, No Hematochezia, No Melena Genitourinary : Patient complaining of urinary retention, No Dysuria, No Urinary Frequency, No Hematuria, No Urgency, No Flank Pain, No Urinary Flow Changes, No Hesitancy Musculoskeletal : No joint pain, No Myalgias, No Joint Swelling Skin : No Skin Lesions, No rash Neuro : No Weakness, No Numbness, No Paresthesias, No Loss of Consciousness, No Dizziness, No Headache Psych : No Anxiety/Panic, No Depression, No SI/HI/AH/VH, No Social Issues, Heme/Lymph: No Bruising, No Bleeding,No Lymphadenopathy Endocrine : No Polyuria, No Polydipsia, No Temperature Intolerance PMFSH Past Medical History Medical History Bladder tumor Tubular adenoma of colon Dyslipidemia Fatty liver Lung nodule Elevated liver enzymes Chronic left ear pain Thrombosed external hemorrhoid Depression Surgical History History of bladder surgery History of back surgery Social History Social History Household Members: Family Housing: House Are you a primary healthcare network consultant to a significant other at home: No Do you presently have visiting nurse or other home services: No Patient Tobacco Use Status: Current everyday Tobacco user Tobacco use type: Cigarette Cigarette Packs Per Day: 1.5 Cigarettes Per Day: 30.0 Years Smoked: started around age 16, 1PPD e-Cigarette/Vaping Use: Never Used Second Hand Smoke Exposure: No service: No Current occupational status: employed Current occupation: [employer] Current occupational exposures/hazards: No Cognitive needs: No Hearing needs: No Vision needs: No Physical Exam Vital Signs: Vital Signs: Last Vital Signs Temp 98 F 05/29/25 23:06 Pulse 96 05/29/25 23:06 Resp 24 H 05/29/25 23:06 BP 122/69 05/29/25 23:06 Pulse Ox 99 05/29/25 23:06 O2 Del Method Room Air 05/29/25 23:06 BMI result Body Mass Index 28.2 Medical Decision Making Medical Decision Making [facility] Narrative: Patient was started on antibiotics today. Patient instructed to continue taking his antibiotics as instructed. Patient has a Zapata catheter. Patient drained 825 mL of urine Patient was instructed to keep the Zapata catheter for at least 3 days. Patient may follow-up with urology or come back to the emergency room. Discussed with the patient that the use of narcotics may cause urinary retention. Lab Data [facility] Lab Attestation statement: I reviewed the patient's lab results. Labs: Lab Results 05/29/25 Range/Units 23:27 Urine Color Dark Yellow Urine Appearance Clear Urine pH 6.5 (5.0-9.0) Ur Specific [place] 1.010 (1.005-1.025) Urine Protein 30 (1+) H (Neg-Trace) mg/dL Urine Glucose (UA) Negative (Negative) mg/dL Urine Ketones Negative (Negative) mg/dL Urine Blood Moderate (2+) H (Negative) Urine Nitrite Positive H (Negative) Ur Leukocyte Esterase Small (1+) H (Negative) Urine RBC 11-20 H (0-2) /HPF Urine WBC 6-10 H (0-5) /HPF Ur Squamous Epith Cells 0-2 (0-2) /HPF Urine Bacteria None Seen (None Seen) Hyaline Casts 0-2 (0-2) /LPF Discharge Plan Discharge Clinical Impression: Acute urinary retention Patient Disposition: Home, Self-Care Instructions: Urinary Retention in Men (ED), Zapata Catheter Placement and Care (ED) Additional Instructions: Zapata catheter needs to be removed in the next 3-4 days. Please follow-up with your primary care physician tomorrow. If you have any worsening or new symptoms, please return to the emergency room or call 911 Prescriptions: No Action atorvastatin 40 mg tablet 40 mg PO BEDTIME 90 Days Qty: 90 1RF gabapentin 300 mg capsule 300 mg PO BEDTIME Qty: 30 3RF buspirone 5 mg tablet 5 mg PO BID Qty: 180 1RF cyclobenzaprine 10 mg tablet 10 mg PO BEDTIME PRN (Reason: muscle spasm) 30 Days Qty: 30 0RF oxycodone 5 mg tablet 5 mg PO .[id number]-[id number] PRN (Reason: pain) Qty: 10 0RF Rx Instructions: Partial Fill upon patient request. sertraline 50 mg tablet 50 mg PO BEDTIME phenazopyridine [Pyridium] 200 mg tablet 200 mg PO TID Qty: 6 0RF ciprofloxacin HCl [Cipro] 500 mg tablet 500 mg PO BID 7 Days Qty: 14 0RF Referrals: Alicia Santacruz MD [Physician, Urology] Print Language: Divehi
--- NOTE | 2025-05-29 23:24 | MHC.EDTECH ---
825 mls of urine output from catheter
[2025-05-29 23:38] LABS: Appearance Urine Clear; Glucose Urine UA Negative (Negative); PH 6.5 (5.0-9.0); Specific Gravity - Urine 1.010 (1.005-1.025); UMIC TRIGGER UACC YES
[2025-05-29 23:49] LABS: UACC Culture Trigger YES
[2025-05-30] VITALS: BP 106/62; PULSE 86; RESP 18; TEMP 36.7; O2SAT 97
--- OUTSIDE RECORDS SUMMARY | 2025-05-30 00:15 | XMS_ITS | Clinical Summary ---
Author Organization [facility] ity Address [address] [place] [address] Care Team Providers Care Call Box Wirer Name Role Phone Unavailable Primary Care Provider [...]
--- OUTSIDE RECORDS SUMMARY | 2025-05-30 00:15 | XMS_ITS | Data Portability ---
Author Organization [place] - [facility], Allergy Address [address] [address] Care Team Providers Care Storage Consultant Name Role Phone CHRISSYEMILY PINK Primary Care Provider [phone] Assessment Encounter Date Assessment Date Assessment LastModified [...] %-0.1 % eye drops,susp ension 2024 025 [facility]/Pharmacy #1972, [address] [facility], [place], [address], 5 14:29:04 Patient TargetsNo targets recorded. Patient InstructionsNo instructions recorded. Reason for Referral None Reported. Problems Name Problem SNOMED Code Status Onset Date Resolution Date Notes Provider Name and Address Organization Details Recorded Time Sensorine ural hearing loss of bilateral ears 767144506 Active 2022 Sensorineu ral hearing loss, bilateral; Note: Date Diagnosed: 07/27/2022 3:01 PM (H90.3) Not Available [facility] 4 03:19:02 Itching of skin 386451738 Active 2022 Pruritus, unspecifie d; Note: Date Diagnosed: 08/03/2022 12:44 PM (L29.9) Not Available [facility] 4 03:19:03 Granulati ons on tympanic membrane 912137787 Active 2024 ANGIE LAWSON PA-C [address] [place] [address], [place], [address] , [place] - [facility] 5 14:28:05 Problem Notes None recorded. [...] topical solution 2022 active Medicatio n ID: [id number] Du ration Value: 14 Brand Name: clotrimaz ole Send Method: E-Prescri bed Subs Allowed: subs OK Specia l Instructi on: 4 drops to affected ear two times a day X 14 days [facility] ericName: clotrimaz ole Not Available Not Available [...] DIRECTED BY GASTROENT EROLOGY DEPARTMEN T AT [facility] active Not Available Not Available No t Available Anoro Ellipta 62.5 mcg-25 mcg/actuat ion powder for inhalation INHALE 1 PUFF DAILY active Not Available Not Available No t Available Vitals Date Recorded Body height Body mass index (BMI) Body weight Provider Name and Address Organization Details Last Updated DateTime 07/20/2024 172.72 cm 28.9 kg/m2 80735.55 g Codi Green [place] - [facility] 07/20/2024 09:25:48 Social History None recorded. Functional Status None recorded. Mental Status None recorded. Family History Nothing Reported. Medical History No medical history recorded. Past Encounters Encounter ID Performer Location Encounter Start Date Encounter Closed Date Diagnosis/Indication Diagnosis SNOMED-CT Code Diagnosis ICD10 Code Diagnosis IMO Codes Diagnosis Note [id number] ANGIE LAWSON PA-C [facility] [address] [address] 07/07/2024 13:49:21 07/07/2024 15:13:10 Itching of skin 379804984 L29.9 Sensorineu ral hearing loss of bilateral ears 697020890 H90.3 Granulatio ns on tympanic membrane 200509591 H73.899 left [id number] ANGIE LAWSON PA-C [facility] [address] [address] 07/20/2024 09:14:26 07/20/2024 09:36:26 Granulations on tympanic membrane 625137929 H73.899 left Health Concerns Section Related Observation LastModified by Organization Detai ls LastModified Time None Recorded Concern Status LastModified by Organization Details LastModified Time None Recorded Advance Directives Directive None Recorded Payers Insurance Date Sequence Insurance Name Policy Number Policy Crockett Covered Member ID Crockett Member ID Guarantor Name 03/21/2025 1 [facility] - DOS ON OR AFTER 2022 - ONE CARE (MEDICARE REPLACEMENT/ADV ANTAGE - HMO) Reshat Arifi [id number] Reshat Arifi Notes Date Note Type Note Provider Name and Address Organization Details Recorded Time 07/07/2024 text/html ROS as noted in the [facility] 44-year-old male presents for evaluation of the ears. He reports left otalgia for 1 month that improved with unknown otologic drops. He reports left ear pruritus for one year. He has a history of a low-grade fungal ear infection one year ago. He denies history of eczema or psoriasis. Smoker. NIDIA OCHOA MD [address] [place] [address], [phone], [facility] 07/08/2024 08:25:39 07/20/2024 text/html ROS as noted in the [facility] 44-year-old male presents for reevaluation of the ears. He reports symptoms resolved with topical TobraDex. Hearing is at baseline. No new concerns. TYLOR MAHONEY MD [address] [place] [address], [phone], [facility] 07/20/2024 17:14:21
[2025-05-30 00:17] VITALS: BP 106/62; PULSE 86; RESP 18; TEMP 36.7; O2SAT 97
== END 2025-05-30 00:18 | disposition home or self-care (01) ==
LOC: HO.ED 05-30 00:12
PROVIDERS: Emergency Provider Emergency Medicine; PCP Nurse Practitioner Family
DX: R33.9 Retention of urine, unspecified (principal); N39.0 Urinary tract infection, site not specified; Z88.6 Allergy status to analgesic agent
CPT/HCPCS: 51702; 51798; 81001; 87086; 99283; 99284

== ENCOUNTER 2025-06-06 08:55 | Outpatient (AMB) | payer OTHER, SELFPAY ==
--- NOTE | 2025-06-06 09:09 | MHC.PC.OV ---
Vital Signs 06/06/25 09:20 Height 5 ft 8 in Weight 186 lb BMI 28.3 BP 94/55 L Blood Pressure Location Rt brachial Position Sitting Pulse 87 Pulse Source Pulse Oximeter Temp 97.9 F Temp Source Oral Pulse Oximetry (%) 99 Oxygen Delivery Method Room Air Intake Visit Reasons: TCM Allergies aspirin Allergy (Severe, Verified 06/06/25 09:27) Unknown Tobacco use date assessed: 05/09/25 Dental Screening Dental Screen Date: 05/09/25 HPI TCM TCM Information Date of Discharge 05/26/25 [address] From [facility] Interactive Contact Date (Reference documentation from this date) 05/29/25 HPI Comments History of Present Illness Details Patient is a 45-year-old male here for a hospital discharge follow-up. He was admitted on May [address] [facility] after going to the emergency department complaining of gross hematuria. The day prior, he had a urological procedure, a TURP for a recent bladder tumor. He he had developed severe abdominal pain and the Morin stopped draining completely. Dr. Stephenson was consulted and recommended ceftriaxone and gentle hydration with a Urology consult. The next day Urology came by and he was switched to CBI. Hospital course was complicated by acute blood loss anemia and a hemoglobin with a low of 7.4. Patient was subsequently transfused 1 unit PRBCs. His blood pressures were soft but never hypotensive. Patient was discharged on May 26. He had repeat H and H on May 28 of 8.6 and 24.5. He had another repeat H&H on May 29 of 9.3 and 27.9. Today, the patient tells me he experienced a urinary blockage from a clot, which required a second visit to the emergency room. They irrigated it and he hasn't had any issues since. The patient reports no further hematuria and that the urine is clear and yellow. The patient had some low blood pressures prior to the blood transfusion and does not take any medication for hypertension. The patient confirms eating and drinking normally. The patient has a follow-up appointment with urology scheduled for June 18 and another appointment on June 11 for a voiding trial. Review of Systems - Constitutional: Denies fevers. - Cardiovascular: Denies dizziness or feeling faint. - Gastrointestinal: Denies abdominal pain. - Genitourinary: Denies current hematuria and reports clear yellow urine. Reports a history of urinary blockage. - Neurological: Denies headaches or feeling faint when changing positions. [facility] Medical History (Updated 06/06/25 @ 09:34 by Val Hart PA-C) Acute blood loss anemia Bladder tumor Tubular adenoma of colon Dyslipidemia Fatty liver Lung nodule Elevated liver enzymes Chronic left ear pain Thrombosed external hemorrhoid Depression Surgical History (Updated 05/30/25 @ 00:02 by Cathie Arriola) History of transurethral resection of bladder tumor (TURBT) History of bladder surgery History of back surgery Social History Household Members: Family Housing: House Are you a primary child care associate teacher to a significant other at home: No Do you presently have visiting nurse or other home services: No Patient Tobacco Use Status: Current everyday Tobacco user Tobacco use type: Cigarette Cigarette Packs Per Day: 1.5 Cigarettes Per Day: 30.0 Years Smoked: started around age 16, 1PPD Packs Per Year: 0 Packs per year/per ci.00 e-Cigarette/Vaping Use: Never Used Second Hand Smoke Exposure: No service: No Current occupational status: employed Current occupation: [employer] Current occupational exposures/hazards: No Cognitive needs: No Hearing needs: No Vision needs: No Questionnaire Thrive Questionnaire Date Thrive assessed: 11/08/24 I am a: Patient What is your living situation today?: I have a steady place to live Within the past 12 months, did the food you bought not last and you didn't have the money to get more?: Never true Within the past 12 months, did you worry whether your food would run out before you got money to buy more?: Never true Do you have trouble paying for medicines?: No Do you have trouble getting transportation to medical appointments?: No Do you have trouble paying your heating and electricity bill?: No Do you have trouble taking care of your child, family member or friend?: No Do you have trouble with day-to-day activities such as bathing, preparing meals, shopping, managing finances, etc.?: No Are you currently unemployed and looking for a job?: Yes Are you interested in more education?: No Please select the resources that you would like help with: None Currently or been in a relationship where the following occur: I choose not to answer THRIVE Score: 0 JOSELYN-7 AMB Questionnaire JOSELYN-7 Date JOSELYN - 7 assessed: 11/08/24 Source: Developed by Drs. Boaz Barker, Kristal Yap, Noe Rosales and colleagues, with an educational giovani from [employer]. Physical exam (Primary Care) Vital Signs: Last Vital Signs Temp 97.9 F 06/06/25 09:20 Pulse 87 06/06/25 09:20 BP 94/55 L 06/06/25 09:20 Pulse Ox 99 06/06/25 09:20 Oxygen Delivery Method Room Air 06/06/25 09:20 BMI result Body Mass Index 28.3 Tobacco/Smoking Status: Tobacco use Status Tobacco use date assessed 05/09/25 06/06/25 09:16 Patient Tobacco Use Status Current everyday Tobacco 06/06/25 09:16 Tobacco use type Cigarette 06/06/25 09:16 e-Cigarette/Vaping Use Never Used 06/06/25 09:16 Thrive Assessment: Date of Thrive Assessment Date Thrive assessed 11/08/24 06/06/25 09:16 Currently or been in a relationship where the following occur: I choose not to answer Const Other: Morin bag attached to left thigh with yellow urine, no blood or clots noticable. General: cooperative, healthy appearing, comfortable, no acute distress and well developed Nutritional Appearance: average body habitus Orientation/consciousness: patient oriented x3 Limitations: no limitations HENMT Head: Yes normal to inspection Ears: hearing grossly normal bilaterally General nose exam: Normal external nose present Face and sinus: Yes normal facial exam Eyes General: appearance normal, both eyes and all related structures Neck Neck: Yes normal visual inspection and Yes full ROM Skin General skin exam: no rashes or lesions noted Neuro General: patient oriented x3 Extrem General: Yes normal to inspection Coding Level of Care Code TCM Mod MDM <= 14 Days Diagnoses Acute blood loss anemia D62 Hospital discharge follow-up Z51.89 Assessment & Plan Assessment & Plan (1) Acute blood loss anemia: Code(s): D62 - Acute posthemorrhagic anemia Category: Medical (2) Hospital discharge follow-up: Code(s): Z51.89 - Encounter for other specified aftercare Category: Medical Plan Patient was informed and verbally consented to the use of an ambient scribe for clinic note documentation during this visit. 1. TURP with Post-Surgical Hematuria And Urinary Retention - The patient reports resolution of hematuria with clear urine and constant flow into Morin bag. - If you are unable to urinate again or if you see blood or blood clots in your morin bag, please seek immediate medical attention. - The plan includes a follow-up with urology on June 18. - The patient is scheduled for a voiding trial on June 11. 2. Mild Hypotension - The patient's blood pressure is low at 94/55 mmHg, though the patient is asymptomatic, denying dizziness, faintness, or orthostatic symptoms and has had no further bleeding. - To assess for anemia as a potential contributing factor, a lab test to check blood count has been ordered. - The patient was instructed to have the lab work done at the hospital. Orders: Orders Complete Blood Count Auto Diff Today D62 - Acute posthemorrhagic anemia
[2025-06-06 09:20] VITALS: BP 94/55; PULSE 87; TEMP 36.6; O2SAT 99; BMI 28.3
--- OUTSIDE RECORDS SUMMARY | 2025-06-06 09:24 | XMS_ITS | Clinical Summary ---
Author Organization [facility] ity Address [address] [place] [address] Care Team Providers Care Case Assembler Name Role Phone Unavailable Primary Care Provider [...]
== END 2025-06-06 10:23 | disposition home or self-care (01) ==
LOC: HO.HMCFMS 08:56
PROVIDERS: PCP Nurse Practitioner Family; Visit Provider Physician Assistant
DX: D62 Acute posthemorrhagic anemia (principal); Z51.89 Encounter for other specified aftercare

== ENCOUNTER → 2025-06-06 08:55 | Outpatient (BNVA) | payer OTHER, SELFPAY | PROVIDERS: PCP Nurse Practitioner Family; Visit Provider Physician Assistant | DX: D62 Acute posthemorrhagic anemia (principal); I95.9 Hypotension, unspecified; Z51.89 Encounter for other specified aftercare | CPT/HCPCS: 99495 ==

== ENCOUNTER → 2025-06-11 09:49 | Outpatient (BNVA) | payer OTHER, SELFPAY | PROVIDERS: PCP Nurse Practitioner Family; Visit Provider Urology | DX: N32.89 Other specified disorders of bladder (principal); R31.29 Other microscopic hematuria | CPT/HCPCS: 51700; 51798 ==

== ENCOUNTER 2025-06-18 15:25 | Outpatient (AMB) | payer OTHER, SELFPAY ==
--- NOTE | 2025-06-18 15:52 | MHC.OFFVIS ---
Intake Visit Reasons: OR Cysto follow up (set(UA) Intake Note: Patient is present for OR cystoscopy follow up Urology Medication:None Antibiotic Allergy:None Blood Thinner:None Mower Mechanic Required: No Allergies aspirin Allergy (Severe, Verified 06/18/25 15:54) Unknown Medication List - Last Reconciled 06/18/25 by Alicia Santacruz MD atorvastatin 40 mg PO BEDTIME 90 days buspirone 5 mg PO BID cyclobenzaprine 10 mg PO BEDTIME PRN 30 days diazepam (Valium) 5 mg PO ONCE gabapentin 300 mg PO BEDTIME sertraline 50 mg PO BEDTIME HPI Comments Details: 06/18/25--History of Present Illness The patient is a 45-year-old male who is status post cystoscopy with transurethral resection of a bladder tumor on 05/22/25. Pathology results confirmed a low-grade, noninvasive papillary urothelial carcinoma. Since the procedure, the patient reports that urination does not feel normal and he feels like he is squeezing to urinate. He expressed concern about the upcoming office procedure due to discomfort and bleeding experienced with the previous surgery. The patient has a history of smoking cigarettes. Smoking cessation discussed. Results - Bladder biopsy pathology (05/22/25): Low-grade, noninvasive papillary urothelial carcinoma. [facility] Medical History Acute blood loss anemia Bladder tumor Tubular adenoma of colon Dyslipidemia Fatty liver Lung nodule Elevated liver enzymes Chronic left ear pain Thrombosed external hemorrhoid Depression Surgical History History of transurethral resection of bladder tumor (TURBT) History of bladder surgery History of back surgery Social History Household Members: Family Housing: House Are you a primary primary care nurse to a significant other at home: No Do you presently have visiting nurse or other home services: No Patient Tobacco Use Status: Current everyday Tobacco user Tobacco use type: Cigarette Cigarette Packs Per Day: 1.5 Cigarettes Per Day: 30.0 Years Smoked: started around age 16, 1PPD e-Cigarette/Vaping Use: Never Used Second Hand Smoke Exposure: No service: No Current occupational status: employed Current occupation: [employer] Current occupational exposures/hazards: No Cognitive needs: No Hearing needs: No Vision needs: No Results AMB Urinalysis, Automated UA Leukoctes 70 Rayray/uL Last Edit by Whitney Du on 06/18/25 17:32 UA Nitrite Negative Last Edit by Crystal Du on 06/18/25 17:32 UA Urobilinogen 0.2 mg/dL Last Edit by Crystal Du on 06/18/25 17:32 UA Protein 15 mg/dL Last Edit by Crystal Du on 06/18/25 17:32 UA pH 6.0 Last Edit by Crystal Du on 06/18/25 17:32 UA Blood 80 Amos/uL Last Edit by Crystal Du on 06/18/25 17:32 UA Specific Epes 1.020 Last Edit by Whitney Du on 06/18/25 17:32 UA Ketone Negative Last Edit by Crystal Du on 06/18/25 17:32 UA Bilirubin 0 mg/dL Last Edit by Whitney Du on 06/18/25 17:32 UA Glucose 0 mg/dL Last Edit by Whitney Du on 06/18/25 17:32 Assessment & Plan Assessment & Plan (1) Bladder cancer: Code(s): C67.9 - Malignant neoplasm of bladder, unspecified Category: Medical (2) Nicotine dependence: Code(s): F17.200 - Nicotine dependence, unspecified, uncomplicated Category: Medical Plan Plan 1. Low-Grade Noninvasive Papillary Urothelial Carcinoma Of The Bladder - The patient was informed that the pathology from his bladder tumor resection revealed a low-grade, noninvasive urothelial carcinoma, which is a favorable finding. - Due to the risk of recurrence, a plan for close monitoring was established. - Surveillance will consist of in-office cystoscopy every three months to visually inspect the bladder. - The awake cystoscopy will be performed using lidocaine numbing jelly to maximize comfort. - A prescription for Valium will be provided for the patient to take before the procedure to alleviate anxiety. - Periodic urine testing will also be part of the monitoring protocol. - A follow-up appointment will be scheduled in three months for the first surveillance cystoscopy. 2. Tobacco Use Disorder - The patient was educated that smoking is a significant risk factor for the recurrence of bladder cancer because nicotine gets into the urine. - He was strongly counseled to stop smoking cigarettes and using any products containing nicotine. 3. Post-Procedural Urinary Symptoms - The patient reported experiencing abnormal urination, described as feeling like he is squeezing, since his procedure. - He was reassured that this is a normal part of the healing process, which can take up to six to eight weeks. 4. 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 - A note will be provided for his employer to document his return to work. Orders: Orders AMB Urinalysis Automated Today C67.9 - Malignant neoplasm of bladder, unspecified Medications: New diazepam (Valium) Brings to the office for cystoscopy procedure. Take 30 minutes prior to procedure. 5 mg PO ONCE 1 tab 0RF cystoscopy Patient Instructions: The patient had an opportunity to ask questions regarding treatment plan. The patient expressed understanding and agreement with the above treatment plan. The patient is aware they should contact our office by phone for worsening of their current condition or the appearance of new symptoms. Compliance is encouraged with any medications and followup testing that is ordered. It is a privilege to be allowed the opportunity to participate in the urologic care of your patient. If you have any questions or concerns regarding treatment for the above conditions please do not hesitate to contact me. The office telephone contact is [phone]. This note is constructed in part using voice recognition software. While every effort has been made to ensure accuracy installation supervisor errors may have been included. Yours sincerely, Alicia Santacruz MD Scribe Plan - Not visible on output: Patient was informed and verbally consented to the use of an ambient scribe for clinic note documentation during this visit. Coding Level of Care Code Est Pt Level 4 (21950) Add On Problem Visit Only Diagnoses Bladder cancer C67.9 Nicotine dependence F17.200
--- OUTSIDE RECORDS SUMMARY | 2025-06-18 21:54 | XMS_ITS | Data Portability ---
Author Organization [place] - [facility], Allergy Address [address] [address] Care Team Providers Care Oracle Pl Sql Developer Name Role Phone CHRISSYEMILY PINK Primary Care [...] %-0.1 % eye drops,susp ension 2024 025 [facility][id number], [address], [place], [address], 5 14:29:04 Patient TargetsNo targets recorded. Patient InstructionsNo instructions recorded. Reason for Referral None Reported. Problems Name Problem SNOMED Code Status Onset Date Resolution Date Notes Provider Name and Address Organization Details Recorded Time Sensorine ural hearing loss of bilateral ears 300570149 Active 2022 Sensorineu ral hearing loss, bilateral; Note: Date Diagnosed: 07/27/2022 3:01 PM (H90.3) Not Available [facility] 4 03:19:02 Itching of skin 576866712 Active 2022 Pruritus, unspecifie d; Note: Date Diagnosed: 08/03/2022 12:44 PM (L29.9) Not Available [facility] 4 03:19:03 Granulati ons on tympanic membrane 262345682 Active 2024 ANGIE LAWSON PA-C [address] [place] [address], [place], [address] , [place] - [facility] 5 14:28:05 Problem Notes None [...] topical solution 2022 active Medicatio n ID: [id number] Du ration Value: 14 Brand Name: clotrimaz [...] DIRECTED BY GASTROENT EROLOGY DEPARTMEN T AT [facility] active Not Available Not Available No t Available Anoro Ellipta 62.5 mcg-25 mcg/actuat ion powder for inhalation INHALE 1 PUFF DAILY active Not Available Not Available No t Available Vitals Date Recorded Body height Body mass index (BMI) Body weight Provider Name and Address Organization Details Last Updated DateTime 07/20/2024 172.72 cm 28.9 kg/m2 86984.55 g Codi Green [place] - [facility] 07/20/2024 09:25:48 Social History None recorded. Functional Status None recorded. Mental Status None recorded. Family History Nothing Reported. Medical History No medical history recorded. Past Encounters Encounter ID Performer Location Encounter Start Date Encounter Closed Date Diagnosis/Indication Diagnosis SNOMED-CT Code Diagnosis ICD10 Code Diagnosis IMO Codes Diagnosis Note [id number] ANGIE LAWSON PA-C [facility] [address] [address] 07/07/2024 13:49:21 07/07/2024 15:13:10 Itching of skin 407531566 L29.9 Sensorineu ral hearing loss of bilateral ears 598777771 H90.3 Granulatio ns on tympanic membrane 195777741 H73.899 left [id number] ANGIE LAWSON PA-C [facility] [address] [address] 07/20/2024 09:14:26 07/20/2024 09:36:26 Granulations on tympanic membrane 076427513 H73.899 left Health Concerns Section Related Observation LastModified by Organization Detai ls LastModified Time None Recorded Concern Status LastModified by Organization Details LastModified Time None Recorded Advance Directives Directive None Recorded Payers Insurance Date Sequence Insurance Name Policy Number Policy Rcockett Covered Member ID Crockett Member ID Guarantor Name 03/21/2025 1 [facility] - DOS ON OR AFTER 2022 - ONE CARE (MEDICARE REPLACEMENT/ADV ANTAGE - HMO) [employer]hat Arifi [id number] [employer] Notes Date Note Type Note Provider Name and Address Organization Details Recorded Time 07/07/2024 text/html ROS as noted in the [facility] 44-year-old male presents for evaluation of the ears. He reports left otalgia for 1 month that improved with unknown otologic drops. He reports left ear pruritus for one year. He has a history of a low-grade fungal ear infection one year ago. He denies history of eczema or psoriasis. Smoker. NIDIA OCHOA MD [address] [place] [address], [phone], [facility] 07/08/2024 08:25:39 07/20/2024 text/html ROS as noted in the [facility] 44-year-old male presents for reevaluation of the ears. He reports symptoms resolved with topical TobraDex. Hearing is at baseline. No new concerns. TYLOR MAHONEY MD [address] [place] [address], [phone], [facility] 07/20/2024 17:14:21
--- OUTSIDE RECORDS SUMMARY | 2025-06-18 21:54 | XMS_ITS | Data Portability ---
Author Organization [employer] [facility] Address [address] [place] [address] Care Team Providers Care Steno Pool Supervisor Name Role Phone [facility] Referring Provider Assessment No assessment [...] Vitals Date Recorded Body temperature Oxygen saturation Respiratory rate Heart rate Systolic And Diastolic Provider Name and Address Organization Details Last Updated DateTime 98.6 [degF] 97 % 18 /min 78 /min 110/73 mm[Hg] Not Available [facility] - production 19:15:58 Social History None recorded. Functional Status None recorded. Mental Status None recorded. Family History Nothing Reported. Medical History No medical history recorded. Past Encounters Encounter ID Performer Location Encounter Start Date Encounter Closed Date Diagnosis/Indication Diagnosis SNOMED-CT Code Diagnosis ICD10 Code Diagnosis IMO Codes Diagnosis Note [id number] Gerald Toscano MD Main - [facility] [address] [place] [phone] 06/02/2022 19:15:55 06/04/2022 11:40:15 Viral syndrome 761263226 B34.9 This 42-year-ol d male called [facility] with left ear pain, a dry cough, [...] Crockett Member ID Guarantor Name 06/02/2022 1 [facility] - DOS PRIOR TO 2022 - DUAL ELIGIBLE (MEDICARE REPLACEMENT/ADV ANTAGE - HMO) [facility] [id number] [facility] Notes Date Note Type Note Provider Name and Address Organization Details Recorded Time 06/02/2022 text/html ROS as noted in the HPI [facility] Nursing Assessment: Reason For Request: Sick [...] Allergies: aspirin Comments: Spoke with member request [facility] visit for complaints of SOB ear discomfort and abdominal discomfort x 4 days eval in ED and PCP states nothing was done request re-eval deny fevers +chills Member aware medics will not visualize ear canal I want them to come anyway Attempt Motrin with fair effect Gerald Toscano MD [address] [place] [address],[address], [place], [address], [employer] 06/02/2022 19:20:43
--- OUTSIDE RECORDS SUMMARY | 2025-06-18 21:54 | XMS_ITS | Clinical Summary ---
Author Organization [facility] ity Address [address] [place] [address] Care Team Providers Care Patient Assistant Name Role Phone Unavailable Primary Care [...]
== END 2025-06-18 16:34 | disposition home or self-care (01) ==
LOC: HO.HUSH 15:26
PROVIDERS: PCP Nurse Practitioner Family; Visit Provider Urology
DX: C67.9 Malignant neoplasm of bladder, unspecified (principal)